=== PATIENT | female | born 1955 | race African-American/Black ===

== ENCOUNTER 2017-03-28 21:08 | Inpatient (IN) ==
[~2017-03-28 21:08] MED LIST: hydrALAZINE 20 MG/1 ML VIAL IV STA
[2017-03-28 22:52] LABS: Alanine Aminotransferase 17 U/L (13-56); Albumin 2.6 G/DL (3.4-5.0); Alkaline Phosphatase 79 U/L (45-117); Aspartate Amino Transferase 20 U/L (0-37); Bilirubin,Total < 0.39 MG/DL (0.2-1.0); Calcium 8.6 MG/DL (8.5-10.1); Total Protein 6.2 G/DL (6.4-8.3)
[2017-03-28 22:53] LABS: Blood Urea Nitrogen 24 MG/DL (7-18); Glucose 386 MG/DL (74-106); Osmolality,Calculated 292.8 MOS/KG (273-304); Potassium 4.3 MMOL/L (3.5-5.1); Sodium 137 MMOL/L (136-145)
[2017-03-28] MEDS ORDERED: hydrALAZINE 20 MG/1 ML VIAL ONE (23:05)
[2017-03-28] MEDS ORDERED: hydrALAZINE 20 MG/1 ML VIAL IV STA (23:05)
[2017-03-28 23:32] LABS: Basophils # 0.1 10*3/uL (0.0-0.2); Basophils % 0.4 % (0.0-0.8); Eosinophils # 0.1 10*3/uL (0.0-0.87); Eosinophils % 0.5 % (0.00-10.9); Hematocrit 33.6 VOL% (35.7-47.0); Hemoglobin 11.1 GM/DL (12.0-16.0); Immature Granulocytes % 0.7 %; Lymphocytes # 3.3 10*3/uL (1.4-4.0); Lymphocytes % 22.1 % (21.3-54.2); Mean Corpuscular Hemoglobin 27 PG (27-34); Mean Corpuscular Volume 82.8 FL (87-102); Monocytes % 6.8 % (1.7-12.7); Neutrophils # 10.4 10*3/uL (1.4-7.4); Neutrophils % 69.5 % (38.7-73.9); Platelet Count 333 T/CUMM (130-400); Red Blood Count 4.06 MC/CUMM (3.8-5.5); Red Cell Distribution Width 15.1 % (9.3-17.3)
[2017-03-28] MEDS ORDERED: INSULIN NPH 100 UNIT/ML SUBCUT STA (23:41)
[2017-03-29] MEDS ORDERED: INSULIN REGULAR 100 UNIT/ML IV STA (00:20)
[2017-03-29] MEDS ORDERED: INSULIN REGULAR 100 UNIT/ML ONE (00:24)
[2017-03-29 01:33] LABS: PT Patient Result 10.8 SECS
[2017-03-29] MEDS ORDERED: DEXTROSE 50% 25 GM/50 ML VIAL IV PRN (02:32)
[2017-03-29] MEDS ORDERED: ONDANSETRON 4 MG/2 ML VIAL IV PRN (02:32)
[2017-03-29] MEDS ORDERED: GLUCAGON 1 MG VIAL IM PRN (02:32)
[2017-03-29] MEDS ORDERED: MORPHINE 2 MG/1 ML SYRINGE IV PRN ×3 (02:32→09:10)
[2017-03-29] MEDS ORDERED: NICOTINE 21 MG/24 HR PATCH TRANSDERM PRN (02:32)
[2017-03-29] MEDS ORDERED: SODIUM CHLORIDE 0.9% 1,000 ML IV SCH (02:32)
[2017-03-29] MEDS: INSULIN LISPRO 100 UNIT/ML SUBCUT SCH ×3 (06:24→18:48)
[2017-03-29] MEDS ORDERED: CLINDAMYCIN INJ 900 MG in PREMIX 1 EACH IV ONE (06:25)
[2017-03-29] MEDS ORDERED: PANTOPRAZOLE 40 MG TABLET PO ONE (07:05)
[2017-03-29] MEDS ORDERED: PHENYLEPHRINE 1 MG/10 ML SYRINGE IV ONE (07:45)
[2017-03-29] MEDS ORDERED: LIDOCAINE 1% 5 ML VIAL ONE (07:45)
[2017-03-29] MEDS ORDERED: PROPOFOL 500 MG/50 ML BOTTLE IV ONE ×2 (07:45→09:33)
[2017-03-29] MEDS ORDERED: BACITRACIN OINT 0.9 GM PACK TOP ONE (08:48)
[2017-03-29] MEDS ORDERED: diphenhydrAMINE CAP 25 MG CAPSULE PO PRN (09:10)
[2017-03-29] MEDS ORDERED: MAGNESIUM HYDROXIDE SUSP 30 ML UDCUP PO PRN (09:10)
[2017-03-29] MEDS ORDERED: MIDAZOLAM 2 MG/2 ML VIAL ONE (09:32)
[2017-03-29 09:38] LABS: Apearance,Urine Slightly Hazy (Clear); Bacteria,Urine Few /HPF (Few); Bilirubin,Urine Negative (Negative); Blood, Urine Moderate mg/dL (Negative); Glucose,Urine (UA) 50 mg/dL (Negative); Ketones,Urine Negative (Negative); Mucus,Urine Occasional /LPF (Occasional); Nitrite,Urine Negative (Negative); Protein,Urine >=500 MG/DL; Squamous Epithelial Cell,Urine Occasional /HPF (0-10); Urine Color Yellow (Yellow); Urine Specific Gravity 1.011 (1.001-1.035); Urine Urobilinogen < 2.0 EU/DL (0.2-1.0); WBC,Urine 5 /HPF (0-6)
[2017-03-29] MEDS: KETOROLAC 30 MG/1 ML VIAL IV SCH ×3 (11:15→21:20)
[2017-03-29] MEDS: PANTOPRAZOLE 40 MG VIAL IV SCH (11:23)
[2017-03-29 12:52] LABS: PT Patient Result 10.9 SECS; Partial Thromboplastin Time 28.6 SECS (0-40)
[2017-03-29] MEDS: CLINDAMYCIN INJ 900 MG in PREMIX 1 EACH IV SCH ×2 (15:22→21:21)
[2017-03-29] MEDS: LACTATED RINGERS 1,000 ML IV SCH (15:30)
[2017-03-29] MEDS: DOCUSATE SODIUM 100 MG CAPSULE PO SCH (21:21)
[2017-03-30] MEDS: INSULIN LISPRO 100 UNIT/ML SUBCUT SCH ×4 (00:45→18:25)
[2017-03-30] MEDS: KETOROLAC 30 MG/1 ML VIAL IV SCH (03:04)
[2017-03-30] MEDS: FONDAPARINUX 2.5 MG/0.5 ML SYRINGE SUBCUT SCH (03:04)
[2017-03-30] MEDS: LACTATED RINGERS 1,000 ML IV SCH ×2 (03:04→09:04)
[2017-03-30 05:15] LABS: Basophils # 0.1 10*3/uL (0.0-0.2); Basophils % 0.5 % (0.0-0.8); Eosinophils # 0.2 10*3/uL (0.0-0.87); Eosinophils % 2.3 % (0.00-10.9); Hemoglobin 9.9 GM/DL (12.0-16.0); Immature Granulocytes % 0.5 %; Immature Granulocytes Absolute 0.05 #; Lymphocytes # 2.2 10*3/uL (1.4-4.0); Mean Corpuscular Hemoglobin 27 PG (27-34); Mean Corpuscular Volume 83.1 FL (87-102); Mean Platelet Volume 11.8 FL (9.6-12.0); Monocytes # 0.8 10*3/uL (0.11-0.8); Monocytes % 7.9 % (1.7-12.7); Neutrophils # 7.2 10*3/uL (1.4-7.4); Neutrophils % 67.8 % (38.7-73.9); Platelet Count 285 T/CUMM (130-400); Red Blood Count 3.61 MC/CUMM (3.8-5.5); Red Cell Distribution Width 15.1 % (9.3-17.3); White Blood Count 10.6 T/CUMM (4-12)
[2017-03-30 05:48] LABS: Calcium 8.5 MG/DL (8.5-10.1); Magnesium 1.6 MG/DL (1.8-2.4); Potassium 4.1 MMOL/L (3.5-5.1)
[2017-03-30] MEDS: DOCUSATE SODIUM 100 MG CAPSULE PO SCH ×2 (08:56→21:07)
[2017-03-30] MEDS: PANTOPRAZOLE 40 MG VIAL IV SCH (08:57)
[2017-03-30] MEDS: GABAPENTIN 600 MG TABLET PO SCH ×2 (13:46→21:07)
[2017-03-30] MEDS: amLODIPine 10 MG TABLET PO SCH (13:46)
[2017-03-30] MEDS: POTASSIUM CHLORIDE 10 MEQ TABLET PO SCH (18:24)
[2017-03-31] MEDS: INSULIN LISPRO 100 UNIT/ML SUBCUT SCH ×4 (00:57→18:21)
[2017-03-31] MEDS: FONDAPARINUX 2.5 MG/0.5 ML SYRINGE SUBCUT SCH (03:04)
[2017-03-31 05:15] LABS: Basophils # 0.1 10*3/uL (0.0-0.2); Basophils % 0.5 % (0.0-0.8); Eosinophils # 0.3 10*3/uL (0.0-0.87); Eosinophils % 2.8 % (0.00-10.9); Hematocrit 30.8 VOL% (35.7-47.0); Hemoglobin 9.9 GM/DL (12.0-16.0); Immature Granulocytes % 0.8 %; Immature Granulocytes Absolute 0.09 #; Lymphocytes # 3.1 10*3/uL (1.4-4.0); Lymphocytes % 25.7 % (21.3-54.2); Mean Corpuscular HGB Conc 32.1 GM/DL (32-36); Mean Corpuscular Hemoglobin 27 PG (27-34); Mean Corpuscular Volume 83.7 FL (87-102); Mean Platelet Volume 11.6 FL (9.6-12.0); Monocytes # 1.2 10*3/uL (0.11-0.8); Monocytes % 10.3 % (1.7-12.7); Neutrophils # 7.1 10*3/uL (1.4-7.4); Neutrophils % 59.9 % (38.7-73.9); Platelet Count 315 T/CUMM (130-400); Red Blood Count 3.68 MC/CUMM (3.8-5.5); Red Cell Distribution Width 15.2 % (9.3-17.3); White Blood Count 11.9 T/CUMM (4-12)
[2017-03-31 05:42] LABS: Calcium 8.5 MG/DL (8.5-10.1); Magnesium 1.8 MG/DL (1.8-2.4); Potassium 4.2 MMOL/L (3.5-5.1)
[2017-03-31] MEDS: POTASSIUM CHLORIDE 10 MEQ TABLET PO SCH ×2 (08:29→17:57)
[2017-03-31] MEDS: DOCUSATE SODIUM 100 MG CAPSULE PO SCH ×2 (09:55→20:48)
[2017-03-31] MEDS: GABAPENTIN 600 MG TABLET PO SCH ×2 (09:55→20:48)
[2017-03-31] MEDS: amLODIPine 10 MG TABLET PO SCH (09:55)
[2017-03-31] MEDS: FUROSEMIDE 20 MG TABLET PO SCH (09:55)
[2017-03-31] MEDS: INSULIN ASPART PROTAMINE/ASPART 70/30 100 UNIT/ML SUBCUT SCH (10:04)
[2017-03-31] MEDS: DULoxetine 30 MG CAPSULE PO SCH (13:40)
[2017-03-31] MEDS: METOPROLOL SUCCINATE XL 50 MG TABLET PO SCH (13:42)
[2017-03-31] MEDS: PANTOPRAZOLE 40 MG VIAL IV SCH (18:18)
[2017-04-01] MEDS: INSULIN LISPRO 100 UNIT/ML SUBCUT SCH ×4 (00:06→18:46)
[2017-04-01] MEDS: FONDAPARINUX 2.5 MG/0.5 ML SYRINGE SUBCUT SCH (01:27)
[2017-04-01 10:00] LABS: Basophils # 0.1 10*3/uL (0.0-0.2); Basophils % 0.6 % (0.0-0.8); Eosinophils # 0.4 10*3/uL (0.0-0.87); Eosinophils % 3.6 % (0.00-10.9); Hematocrit 31.9 VOL% (35.7-47.0); Hemoglobin 10.3 GM/DL (12.0-16.0); Immature Granulocytes % 0.7 %; Immature Granulocytes Absolute 0.09 #; Lymphocytes # 3.2 10*3/uL (1.4-4.0); Lymphocytes % 25.5 % (21.3-54.2); Mean Corpuscular HGB Conc 32.3 GM/DL (32-36); Mean Corpuscular Hemoglobin 28 PG (27-34); Mean Corpuscular Volume 85.1 FL (87-102); Monocytes # 1.3 10*3/uL (0.11-0.8); Monocytes % 10.7 % (1.7-12.7); Neutrophils # 7.3 10*3/uL (1.4-7.4); Neutrophils % 58.9 % (38.7-73.9); Platelet Count 328 T/CUMM (130-400); Red Blood Count 3.75 MC/CUMM (3.8-5.5); Red Cell Distribution Width 15.2 % (9.3-17.3); White Blood Count 12.4 T/CUMM (4-12)
[2017-04-01] MEDS: FUROSEMIDE 20 MG TABLET PO SCH (10:41)
[2017-04-01] MEDS: DULoxetine 30 MG CAPSULE PO SCH (10:42)
[2017-04-01] MEDS: amLODIPine 10 MG TABLET PO SCH (10:42)
[2017-04-01] MEDS: DOCUSATE SODIUM 100 MG CAPSULE PO SCH ×2 (10:42→20:54)
[2017-04-01] MEDS: INSULIN ASPART PROTAMINE/ASPART 70/30 100 UNIT/ML SUBCUT SCH (10:43)
[2017-04-01] MEDS: METOPROLOL SUCCINATE XL 50 MG TABLET PO SCH (10:43)
[2017-04-01] MEDS: POTASSIUM CHLORIDE 10 MEQ TABLET PO SCH ×2 (10:43→17:13)
[2017-04-01] MEDS: GABAPENTIN 600 MG TABLET PO SCH ×2 (10:43→20:54)
[2017-04-01 11:11] LABS: Hypochromasia 2+; Microcytosis 2+
[2017-04-01] MEDS: PANTOPRAZOLE 40 MG TABLET PO SCH (12:32)
[2017-04-01] MEDS: sitaGLIPtin 25 MG TABLET PO SCH ×2 (17:12→20:54)
[2017-04-01] MEDS: metFORMIN 500 MG TABLET PO SCH ×2 (17:13→20:54)
[2017-04-01] MEDS: PANTOPRAZOLE 40 MG VIAL IV SCH (17:44)
[2017-04-02] MEDS: INSULIN LISPRO 100 UNIT/ML SUBCUT SCH ×3 (00:40→11:33)
[2017-04-02] MEDS: FONDAPARINUX 2.5 MG/0.5 ML SYRINGE SUBCUT SCH (03:05)
[2017-04-02 05:02] LABS: Basophils # 0.1 10*3/uL (0.0-0.2); Basophils % 0.7 % (0.0-0.8); Eosinophils # 0.3 10*3/uL (0.0-0.87); Eosinophils % 2.8 % (0.00-10.9); Immature Granulocytes % 0.5 %; Immature Granulocytes Absolute 0.05 #; Lymphocytes # 3.2 10*3/uL (1.4-4.0); Lymphocytes % 30.7 % (21.3-54.2); Mean Corpuscular HGB Conc 32.1 GM/DL (32-36); Mean Corpuscular Hemoglobin 27 PG (27-34); Mean Corpuscular Volume 84.3 FL (87-102); Mean Platelet Volume 11.2 FL (9.6-12.0); Monocytes # 1.1 10*3/uL (0.11-0.8); Monocytes % 10.9 % (1.7-12.7); Neutrophils # 5.7 10*3/uL (1.4-7.4); Neutrophils % 54.4 % (38.7-73.9); Platelet Count 337 T/CUMM (130-400); Red Blood Count 3.32 MC/CUMM (3.8-5.5); White Blood Count 10.4 T/CUMM (4-12)
[2017-04-02 05:28] LABS: Calcium 8.3 MG/DL (8.5-10.1); Magnesium 1.7 MG/DL (1.8-2.4); Osmolality,Calculated 286.1 MOS/KG (273-304); Potassium 4.2 MMOL/L (3.5-5.1)
[2017-04-02] MEDS: DULoxetine 30 MG CAPSULE PO SCH (09:04)
[2017-04-02] MEDS: INSULIN ASPART PROTAMINE/ASPART 70/30 100 UNIT/ML SUBCUT SCH (09:04)
[2017-04-02] MEDS: FUROSEMIDE 20 MG TABLET PO SCH (09:05)
[2017-04-02] MEDS: DOCUSATE SODIUM 100 MG CAPSULE PO SCH (09:05)
[2017-04-02] MEDS: PANTOPRAZOLE 40 MG TABLET PO SCH (09:05)
[2017-04-02] MEDS: METOPROLOL SUCCINATE XL 50 MG TABLET PO SCH (09:05)
[2017-04-02] MEDS: POTASSIUM CHLORIDE 10 MEQ TABLET PO SCH (09:05)
[2017-04-02] MEDS: metFORMIN 500 MG TABLET PO SCH (09:05)
[2017-04-02] MEDS: sitaGLIPtin 25 MG TABLET PO SCH (09:05)
[2017-04-02] MEDS: GABAPENTIN 600 MG TABLET PO SCH (09:05)
[2017-04-02] MEDS: amLODIPine 10 MG TABLET PO SCH (09:05)
[2017-04-02] MEDS ORDERED: BISACODYL 10 MG SUPP RECTAL PRN (13:03)
[2017-04-02 15:15] VITALS: BP 162/91
== END 2017-04-02 15:25 | disposition swing bed (61) | DRG 481 ==
LOC: EDBD → EDUNIT# → N.ED 21:08 → SUATTDRO 03-29 01:53 → N.EDINP 03-29 01:53 → N.3E 03-29 02:05
PROVIDERS: ADMIT Internal Medicine; ATTEND Internal Medicine

== ENCOUNTER 2017-04-12 21:02 | Inpatient (IN) ==
[2017-04-12 22:47] LABS: Basophils # 0.1 10*3/uL (0.0-0.2); Basophils % 0.4 % (0.0-0.8); Eosinophils # 0.2 10*3/uL (0.0-0.87); Hematocrit 27.6 VOL% (35.7-47.0); Hemoglobin 8.8 GM/DL (12.0-16.0); Immature Granulocytes % 0.4 %; Immature Granulocytes Absolute 0.07 #; Lymphocytes # 2.2 10*3/uL (1.4-4.0); Mean Corpuscular HGB Conc 31.9 GM/DL (32-36); Mean Corpuscular Hemoglobin 27 PG (27-34); Mean Corpuscular Volume 84.9 FL (87-102); Mean Platelet Volume 10.5 FL (9.6-12.0); Monocytes % 6.3 % (1.7-12.7); Neutrophils # 12.3 10*3/uL (1.4-7.4); Neutrophils % 77.9 % (38.7-73.9); Platelet Count 401 T/CUMM (130-400); Red Blood Count 3.25 MC/CUMM (3.8-5.5); Red Cell Distribution Width 14.6 % (9.3-17.3); White Blood Count 15.8 T/CUMM (4-12)
[2017-04-12 23:03] LABS: Calcium 8.8 MG/DL (8.5-10.1); Potassium 4.7 MMOL/L (3.5-5.1)
[2017-04-13] MEDS ORDERED: ONDANSETRON 4 MG/2 ML VIAL IV PRN (03:15)
[2017-04-13] MEDS ORDERED: DEXTROSE 50% 25 GM/50 ML VIAL IV PRN (03:15)
[2017-04-13] MEDS ORDERED: ACETAMINOPHEN 650 MG SUPP RECTAL PRN (03:15)
[2017-04-13] MEDS ORDERED: GLUCAGON 1 MG VIAL IM PRN (03:15)
[2017-04-13] MEDS: SODIUM CHLORIDE 0.9% 1,000 ML IV SCH ×2 (03:37→18:57)
[2017-04-13] MEDS: VANCOMYCIN INJ 1,000 MG in SODIUM CHLORIDE 0.9% 250 ML IV SCH (04:10)
[2017-04-13 06:03] LABS: Basophils # 0.1 10*3/uL (0.0-0.2); Basophils % 0.5 % (0.0-0.8); Eosinophils # 0.2 10*3/uL (0.0-0.87); Eosinophils % 1.5 % (0.00-10.9); Hematocrit 26.3 VOL% (35.7-47.0); Hemoglobin 8.4 GM/DL (12.0-16.0); Immature Granulocytes % 0.4 %; Immature Granulocytes Absolute 0.05 #; Lymphocytes # 3.3 10*3/uL (1.4-4.0); Lymphocytes % 23.9 % (21.3-54.2); Mean Corpuscular HGB Conc 31.9 GM/DL (32-36); Mean Corpuscular Hemoglobin 27 PG (27-34); Mean Corpuscular Volume 84.6 FL (87-102); Mean Platelet Volume 10.4 FL (9.6-12.0); Monocytes # 1.3 10*3/uL (0.11-0.8); Monocytes % 9.2 % (1.7-12.7); Neutrophils # 8.9 10*3/uL (1.4-7.4); Neutrophils % 64.5 % (38.7-73.9); Platelet Count 395 T/CUMM (130-400); Red Blood Count 3.11 MC/CUMM (3.8-5.5); Red Cell Distribution Width 14.6 % (9.3-17.3); White Blood Count 13.8 T/CUMM (4-12)
[2017-04-13] MEDS: INSULIN REGULAR 100 UNIT/ML SUBCUT SCH ×3 (06:15→18:14)
[2017-04-13 06:18] LABS: PT Patient Result 10.7 SECS; Partial Thromboplastin Time 32.1 SECS (0-40)
[2017-04-13 06:45] LABS: Calcium 9.1 MG/DL (8.5-10.1)
[2017-04-13 06:46] LABS: Albumin 2.5 G/DL (3.4-5.0); Bilirubin,Total 0.7 MG/DL (0.2-1.0); Magnesium 2.5 MG/DL (1.8-2.4); Osmolality,Calculated 286.7 MOS/KG (273-304); Potassium 4.4 MMOL/L (3.5-5.1); Total Protein 6.1 G/DL (6.4-8.3)
[2017-04-13] MEDS: MORPHINE 2 MG/1 ML SYRINGE IV PRN (08:30)
[2017-04-13] MEDS ORDERED: PROPOFOL 200 MG/20 ML VIAL IV ONE (21:15)
[2017-04-13] MEDS ORDERED: ONDANSETRON 4 MG/2 ML VIAL ONE (21:16)
[2017-04-13] MEDS ORDERED: MIDAZOLAM 2 MG/2 ML VIAL ONE (21:16)
[2017-04-13] MEDS ORDERED: fentaNYL 100 MCG/2 ML VIAL ONE (21:16)
[2017-04-14] MEDS: INSULIN REGULAR 100 UNIT/ML SUBCUT SCH ×3 (01:00→12:36)
[2017-04-14] MEDS: SODIUM CHLORIDE 0.9% 1,000 ML IV SCH ×3 (01:03→12:36)
[2017-04-14] MEDS: VANCOMYCIN INJ 1,000 MG in SODIUM CHLORIDE 0.9% 250 ML IV SCH (03:54)
[2017-04-14 05:24] LABS: Basophils # 0.1 10*3/uL (0.0-0.2); Basophils % 0.5 % (0.0-0.8); Eosinophils # 0.3 10*3/uL (0.0-0.87); Eosinophils % 2.2 % (0.00-10.9); Hematocrit 25.8 VOL% (35.7-47.0); Hemoglobin 8.2 GM/DL (12.0-16.0); Immature Granulocytes % 0.4 %; Immature Granulocytes Absolute 0.05 #; Lymphocytes # 3.1 10*3/uL (1.4-4.0); Lymphocytes % 27.1 % (21.3-54.2); Mean Corpuscular HGB Conc 31.8 GM/DL (32-36); Mean Corpuscular Hemoglobin 27 PG (27-34); Mean Corpuscular Volume 85.4 FL (87-102); Mean Platelet Volume 10.5 FL (9.6-12.0); Monocytes % 9.1 % (1.7-12.7); Neutrophils # 6.8 10*3/uL (1.4-7.4); Neutrophils % 60.7 % (38.7-73.9); Platelet Count 363 T/CUMM (130-400); Red Blood Count 3.02 MC/CUMM (3.8-5.5); Red Cell Distribution Width 14.6 % (9.3-17.3); White Blood Count 11.3 T/CUMM (4-12)
[2017-04-14] MEDS ORDERED: MAGNESIUM HYDROXIDE SUSP 30 ML UDCUP PO PRN (14:20)
[2017-04-14] MEDS ORDERED: NICOTINE 21 MG/24 HR PATCH TRANSDERM PRN (14:20)
[2017-04-14] MEDS: BISACODYL 5 MG TABLET PO PRN (16:05)
[2017-04-14] MEDS: POTASSIUM CHLORIDE 10 MEQ TABLET PO SCH (18:29)
[2017-04-14] MEDS: INSULIN LISPRO 100 UNIT/ML SUBCUT SCH (18:47)
[2017-04-14] MEDS: sitaGLIPtin 25 MG TABLET PO SCH (20:38)
[2017-04-14] MEDS: metFORMIN 500 MG TABLET PO SCH (20:38)
[2017-04-14] MEDS: FUROSEMIDE 20 MG TABLET PO SCH (20:39)
[2017-04-14] MEDS: QUEtiapine 100 MG TABLET PO SCH (20:39)
[2017-04-14] MEDS: MORPHINE 2 MG/1 ML SYRINGE IV PRN (20:39)
[2017-04-15] MEDS: INSULIN LISPRO 100 UNIT/ML SUBCUT SCH ×5 (00:06→23:30)
[2017-04-15] MEDS: SODIUM CHLORIDE 0.9% 1,000 ML IV SCH ×4 (03:00→19:49)
[2017-04-15] MEDS: VANCOMYCIN INJ 1,000 MG in SODIUM CHLORIDE 0.9% 250 ML IV SCH (03:00)
[2017-04-15] MEDS: FUROSEMIDE 20 MG TABLET PO SCH ×2 (08:18→20:54)
[2017-04-15] MEDS: amLODIPine 10 MG TABLET PO SCH (08:18)
[2017-04-15] MEDS: metFORMIN 500 MG TABLET PO SCH ×2 (08:18→20:54)
[2017-04-15] MEDS: POTASSIUM CHLORIDE 10 MEQ TABLET PO SCH ×2 (08:18→17:59)
[2017-04-15] MEDS: sitaGLIPtin 25 MG TABLET PO SCH ×2 (08:18→20:54)
[2017-04-15] MEDS: DULoxetine 30 MG CAPSULE PO SCH (08:18)
[2017-04-15] MEDS: METOPROLOL SUCCINATE XL 50 MG TABLET PO SCH (08:19)
[2017-04-15] MEDS: PANTOPRAZOLE 40 MG TABLET PO SCH (08:19)
[2017-04-15] MEDS: INSULIN ASPART PROTAMINE/ASPART 70/30 100 UNIT/ML SUBCUT SCH (08:19)
[2017-04-15] MEDS ORDERED: LEVOFLOXACIN INJ 750 MG in PREMIX 1 EACH IV SCH (15:30)
[2017-04-15] MEDS ORDERED: cefTRIAXone 1,000 MG in SYRINGE 1 EACH IV SCH (16:30)
[2017-04-15] MEDS: QUEtiapine 100 MG TABLET PO SCH (20:54)
[2017-04-16] MEDS ORDERED: VANCOMYCIN INJ 1,000 MG in SODIUM CHLORIDE 0.9% 250 ML IV SCH (04:00)
[2017-04-16] MEDS: INSULIN LISPRO 100 UNIT/ML SUBCUT SCH ×3 (06:58→17:52)
[2017-04-16] MEDS: DULoxetine 30 MG CAPSULE PO SCH (09:20)
[2017-04-16] MEDS: POTASSIUM CHLORIDE 10 MEQ TABLET PO SCH ×2 (09:20→17:04)
[2017-04-16] MEDS: amLODIPine 10 MG TABLET PO SCH (09:21)
[2017-04-16] MEDS: FUROSEMIDE 20 MG TABLET PO SCH ×2 (09:21→22:21)
[2017-04-16] MEDS: PANTOPRAZOLE 40 MG TABLET PO SCH (09:21)
[2017-04-16] MEDS: METOPROLOL SUCCINATE XL 50 MG TABLET PO SCH (09:22)
[2017-04-16] MEDS: metFORMIN 500 MG TABLET PO SCH ×2 (09:34→22:18)
[2017-04-16] MEDS: sitaGLIPtin 25 MG TABLET PO SCH ×2 (09:38→22:18)
[2017-04-16] MEDS: INSULIN ASPART PROTAMINE/ASPART 70/30 100 UNIT/ML SUBCUT SCH (09:39)
[2017-04-16] MEDS: SODIUM CHLORIDE 0.9% 1,000 ML IV SCH ×3 (10:44→22:23)
[2017-04-16 12:17] LABS: Calcium 8.6 MG/DL (8.5-10.1); Osmolality,Calculated 287.8 MOS/KG (273-304); Potassium 4.4 MMOL/L (3.5-5.1)
[2017-04-16] MEDS: KETOCONAZOLE 2% CREAM 30 GM TUBE TOP SCH ×2 (13:16→22:28)
[2017-04-16] MEDS: SULFAMETHOX/TRIMETHOPRIM 800-160 MG TABLET PO SCH ×2 (13:16→22:21)
[2017-04-16] MEDS: QUEtiapine 100 MG TABLET PO SCH (22:22)
[2017-04-17] MEDS: INSULIN LISPRO 100 UNIT/ML SUBCUT SCH ×4 (00:38→18:19)
[2017-04-17 04:39] LABS: Basophils # 0.1 10*3/uL (0.0-0.2); Basophils % 0.5 % (0.0-0.8); Eosinophils # 0.2 10*3/uL (0.0-0.87); Eosinophils % 2.6 % (0.00-10.9); Hematocrit 23.6 VOL% (35.7-47.0); Hemoglobin 7.6 GM/DL (12.0-16.0); Immature Granulocytes % 0.4 %; Immature Granulocytes Absolute 0.04 #; Lymphocytes # 2.9 10*3/uL (1.4-4.0); Lymphocytes % 30.6 % (21.3-54.2); Mean Corpuscular HGB Conc 32.2 GM/DL (32-36); Mean Corpuscular Hemoglobin 27 PG (27-34); Mean Corpuscular Volume 85.2 FL (87-102); Mean Platelet Volume 10.4 FL (9.6-12.0); Monocytes # 0.9 10*3/uL (0.11-0.8); Neutrophils # 5.2 10*3/uL (1.4-7.4); Neutrophils % 55.9 % (38.7-73.9); Platelet Count 380 T/CUMM (130-400); Red Blood Count 2.77 MC/CUMM (3.8-5.5); Red Cell Distribution Width 14.6 % (9.3-17.3); White Blood Count 9.3 T/CUMM (4-12)
[2017-04-17 05:04] LABS: Osmolality,Calculated 286.7 MOS/KG (273-304); Potassium 3.9 MMOL/L (3.5-5.1)
[2017-04-17] MEDS: DULoxetine 30 MG CAPSULE PO SCH (09:28)
[2017-04-17] MEDS: sitaGLIPtin 25 MG TABLET PO SCH ×2 (09:28→21:51)
[2017-04-17] MEDS: metFORMIN 500 MG TABLET PO SCH ×2 (09:28→21:52)
[2017-04-17] MEDS: POTASSIUM CHLORIDE 10 MEQ TABLET PO SCH ×2 (09:28→18:17)
[2017-04-17] MEDS: SULFAMETHOX/TRIMETHOPRIM 800-160 MG TABLET PO SCH ×2 (09:28→21:51)
[2017-04-17] MEDS: FUROSEMIDE 20 MG TABLET PO SCH ×2 (09:30→21:51)
[2017-04-17] MEDS: amLODIPine 10 MG TABLET PO SCH (09:31)
[2017-04-17] MEDS: METOPROLOL SUCCINATE XL 50 MG TABLET PO SCH (09:31)
[2017-04-17] MEDS: PANTOPRAZOLE 40 MG TABLET PO SCH (09:37)
[2017-04-17] MEDS: KETOCONAZOLE 2% CREAM 30 GM TUBE TOP SCH ×2 (09:38→21:56)
[2017-04-17] MEDS: INSULIN ASPART PROTAMINE/ASPART 70/30 100 UNIT/ML SUBCUT SCH (09:40)
[2017-04-17] MEDS: SODIUM CHLORIDE 0.9% 1,000 ML IV SCH ×3 (12:53→21:59)
[2017-04-17] MEDS: QUEtiapine 100 MG TABLET PO SCH (21:52)
[2017-04-18] MEDS: INSULIN LISPRO 100 UNIT/ML SUBCUT SCH ×4 (01:34→18:08)
[2017-04-18 06:31] LABS: Basophils # 0.1 10*3/uL (0.0-0.2); Basophils % 0.5 % (0.0-0.8); Eosinophils # 0.3 10*3/uL (0.0-0.87); Eosinophils % 3.2 % (0.00-10.9); Hemoglobin 8.5 GM/DL (12.0-16.0); Immature Granulocytes % 0.4 %; Immature Granulocytes Absolute 0.04 #; Lymphocytes # 3.2 10*3/uL (1.4-4.0); Lymphocytes % 31.7 % (21.3-54.2); Mean Corpuscular HGB Conc 31.5 GM/DL (32-36); Mean Corpuscular Hemoglobin 27 PG (27-34); Mean Corpuscular Volume 84.4 FL (87-102); Mean Platelet Volume 10.8 FL (9.6-12.0); Monocytes % 9.7 % (1.7-12.7); Neutrophils # 5.6 10*3/uL (1.4-7.4); Neutrophils % 54.5 % (38.7-73.9); Platelet Count 433 T/CUMM (130-400); Red Cell Distribution Width 14.9 % (9.3-17.3); White Blood Count 10.2 T/CUMM (4-12)
[2017-04-18] MEDS: SODIUM CHLORIDE 0.9% 1,000 ML IV SCH ×2 (07:06→13:00)
[2017-04-18 07:35] LABS: Calcium 8.7 MG/DL (8.5-10.1); Osmolality,Calculated 285.1 MOS/KG (273-304); Potassium 3.8 MMOL/L (3.5-5.1)
[2017-04-18] MEDS: metFORMIN 500 MG TABLET PO SCH ×2 (09:20→20:51)
[2017-04-18] MEDS: POTASSIUM CHLORIDE 10 MEQ TABLET PO SCH ×2 (09:21→18:22)
[2017-04-18] MEDS: amLODIPine 10 MG TABLET PO SCH (09:21)
[2017-04-18] MEDS: FUROSEMIDE 20 MG TABLET PO SCH ×2 (09:23→20:51)
[2017-04-18] MEDS: PANTOPRAZOLE 40 MG TABLET PO SCH (09:24)
[2017-04-18] MEDS: sitaGLIPtin 25 MG TABLET PO SCH ×2 (09:24→20:51)
[2017-04-18] MEDS: SULFAMETHOX/TRIMETHOPRIM 800-160 MG TABLET PO SCH ×2 (09:24→20:51)
[2017-04-18] MEDS: METOPROLOL SUCCINATE XL 50 MG TABLET PO SCH (09:24)
[2017-04-18] MEDS: DULoxetine 30 MG CAPSULE PO SCH (09:25)
[2017-04-18] MEDS: KETOCONAZOLE 2% CREAM 30 GM TUBE TOP SCH ×2 (09:27→20:51)
[2017-04-18] MEDS: INSULIN ASPART PROTAMINE/ASPART 70/30 100 UNIT/ML SUBCUT SCH (09:46)
[2017-04-18] MEDS: QUEtiapine 100 MG TABLET PO SCH (20:52)
[2017-04-19] MEDS: INSULIN LISPRO 100 UNIT/ML SUBCUT SCH ×5 (00:08→23:53)
[2017-04-19] MEDS: SODIUM CHLORIDE 0.9% 1,000 ML IV SCH ×3 (04:21→23:54)
[2017-04-19] MEDS: KETOCONAZOLE 2% CREAM 30 GM TUBE TOP SCH ×2 (09:23→20:22)
[2017-04-19] MEDS: amLODIPine 10 MG TABLET PO SCH (09:23)
[2017-04-19] MEDS: METOPROLOL SUCCINATE XL 50 MG TABLET PO SCH (09:24)
[2017-04-19] MEDS: POTASSIUM CHLORIDE 10 MEQ TABLET PO SCH ×2 (09:24→18:52)
[2017-04-19] MEDS: metFORMIN 500 MG TABLET PO SCH ×2 (09:24→20:24)
[2017-04-19] MEDS: sitaGLIPtin 25 MG TABLET PO SCH ×2 (09:25→20:23)
[2017-04-19] MEDS: DULoxetine 30 MG CAPSULE PO SCH (09:25)
[2017-04-19] MEDS: FUROSEMIDE 20 MG TABLET PO SCH ×2 (09:27→20:24)
[2017-04-19] MEDS: PANTOPRAZOLE 40 MG TABLET PO SCH (09:28)
[2017-04-19] MEDS: SULFAMETHOX/TRIMETHOPRIM 800-160 MG TABLET PO SCH ×2 (09:28→20:23)
[2017-04-19] MEDS: INSULIN ASPART PROTAMINE/ASPART 70/30 100 UNIT/ML SUBCUT SCH (09:31)
[2017-04-19] MEDS: QUEtiapine 100 MG TABLET PO SCH (20:22)
[2017-04-20 03:16] LABS: Basophils % 0.4 % (0.0-0.8); Eosinophils # 0.3 10*3/uL (0.0-0.87); Hematocrit 23.2 VOL% (35.7-47.0); Hemoglobin 7.3 GM/DL (12.0-16.0); Immature Granulocytes % 0.4 %; Immature Granulocytes Absolute 0.04 #; Lymphocytes % 27.3 % (21.3-54.2); Mean Corpuscular HGB Conc 31.5 GM/DL (32-36); Mean Corpuscular Hemoglobin 26 PG (27-34); Mean Corpuscular Volume 84.1 FL (87-102); Mean Platelet Volume 9.9 FL (9.6-12.0); Monocytes # 1.1 10*3/uL (0.11-0.8); Neutrophils # 6.4 10*3/uL (1.4-7.4); Neutrophils % 58.9 % (38.7-73.9); Platelet Count 426 T/CUMM (130-400); Red Blood Count 2.76 MC/CUMM (3.8-5.5); White Blood Count 10.9 T/CUMM (4-12)
[2017-04-20 03:45] LABS: Calcium 8.5 MG/DL (8.5-10.1); Osmolality,Calculated 283.3 MOS/KG (273-304); Potassium 4.1 MMOL/L (3.5-5.1)
[2017-04-20] MEDS: INSULIN LISPRO 100 UNIT/ML SUBCUT SCH ×3 (07:50→19:18)
[2017-04-20] MEDS: SODIUM CHLORIDE 0.9% 1,000 ML IV SCH ×3 (10:07→20:43)
[2017-04-20] MEDS: FUROSEMIDE 20 MG TABLET PO SCH ×2 (10:08→20:44)
[2017-04-20] MEDS: metFORMIN 500 MG TABLET PO SCH ×2 (10:09→20:44)
[2017-04-20] MEDS: amLODIPine 10 MG TABLET PO SCH (10:09)
[2017-04-20] MEDS: SULFAMETHOX/TRIMETHOPRIM 800-160 MG TABLET PO SCH ×2 (10:09→20:44)
[2017-04-20] MEDS: POTASSIUM CHLORIDE 10 MEQ TABLET PO SCH ×2 (10:10→18:35)
[2017-04-20] MEDS: DULoxetine 30 MG CAPSULE PO SCH (10:11)
[2017-04-20] MEDS: sitaGLIPtin 25 MG TABLET PO SCH ×2 (10:11→20:44)
[2017-04-20] MEDS: METOPROLOL SUCCINATE XL 50 MG TABLET PO SCH (10:11)
[2017-04-20] MEDS: PANTOPRAZOLE 40 MG TABLET PO SCH (10:11)
[2017-04-20] MEDS: BISACODYL 5 MG TABLET PO PRN (10:12)
[2017-04-20] MEDS: KETOCONAZOLE 2% CREAM 30 GM TUBE TOP SCH ×2 (10:13→22:38)
[2017-04-20] MEDS: INSULIN ASPART PROTAMINE/ASPART 70/30 100 UNIT/ML SUBCUT SCH (10:13)
[2017-04-20] MEDS: QUEtiapine 100 MG TABLET PO SCH (20:44)
[2017-04-21] MEDS: INSULIN LISPRO 100 UNIT/ML SUBCUT SCH ×3 (01:06→11:32)
[2017-04-21] MEDS: SODIUM CHLORIDE 0.9% 1,000 ML IV SCH (05:46)
[2017-04-21] MEDS: INSULIN ASPART PROTAMINE/ASPART 70/30 100 UNIT/ML SUBCUT SCH (09:06)
[2017-04-21] MEDS: POTASSIUM CHLORIDE 10 MEQ TABLET PO SCH (09:07)
[2017-04-21] MEDS: SULFAMETHOX/TRIMETHOPRIM 800-160 MG TABLET PO SCH (09:07)
[2017-04-21] MEDS: amLODIPine 10 MG TABLET PO SCH (09:08)
[2017-04-21] MEDS: sitaGLIPtin 25 MG TABLET PO SCH (09:08)
[2017-04-21] MEDS: metFORMIN 500 MG TABLET PO SCH (09:08)
[2017-04-21] MEDS: PANTOPRAZOLE 40 MG TABLET PO SCH (09:08)
[2017-04-21] MEDS: METOPROLOL SUCCINATE XL 50 MG TABLET PO SCH (09:08)
[2017-04-21] MEDS: KETOCONAZOLE 2% CREAM 30 GM TUBE TOP SCH (09:08)
[2017-04-21] MEDS: DULoxetine 30 MG CAPSULE PO SCH (09:08)
[2017-04-21] MEDS: FUROSEMIDE 20 MG TABLET PO SCH (09:08)
[2017-04-21] MEDS ORDERED: LISINOPRIL 10 MG TABLET PO SCH (10:30)
[2017-04-21 11:54] VITALS: BP 152/81
== END 2017-04-21 14:15 | disposition swing bed (61) | DRG 863 ==
LOC: N.ED 21:02 → N.EDINP 04-13 02:01 → SUATTDRO 04-13 02:01 → N.3E 04-13 02:36
PROVIDERS: ADMIT Internal Medicine Cardiovascular Disease

== ENCOUNTER 2018-02-12 14:52 | Inpatient (IN) ==
[2018-02-12 15:37] LABS: Basophils # 0.1 10*3/uL (0.0-0.2); Basophils % 0.7 % (0.0-0.8); Eosinophils # 0.2 10*3/uL (0.0-0.87); Eosinophils % 1.6 % (0.00-10.9); Hematocrit 29.5 VOL% (35.7-47.0); Hemoglobin 9.3 GM/DL (12.0-16.0); Immature Granulocytes % 0.5 %; Immature Granulocytes Absolute 0.06 #; Lymphocytes % 24.6 % (21.3-54.2); Mean Corpuscular HGB Conc 31.5 GM/DL (32-36); Mean Corpuscular Hemoglobin 27 PG (27-34); Mean Platelet Volume 11.6 FL (9.6-12.0); Monocytes # 0.9 10*3/uL (0.11-0.8); Monocytes % 7.2 % (1.7-12.7); Neutrophils % 65.4 % (38.7-73.9); Platelet Count 349 T/CUMM (130-400); Red Blood Count 3.51 MC/CUMM (3.8-5.5); Red Cell Distribution Width 16.1 % (9.3-17.3); White Blood Count 12.2 T/CUMM (4-12)
[2018-02-12 15:43] LABS: PT Patient Result 10.8 SECS; Partial Thromboplastin Time 27.5 SECS (0-40)
[2018-02-12 15:50] LABS: Alanine Aminotransferase 18 U/L (13-56); Alkaline Phosphatase 101 U/L (45-117); Aspartate Amino Transferase 14 U/L (0-37); Bilirubin,Total < 0.39 MG/DL (0.2-1.0); Blood Urea Nitrogen 53 MG/DL (7-18); Calcium 9.8 MG/DL (8.5-10.1); Glucose 272 MG/DL (74-106); Osmolality,Calculated 296.8 MOS/KG (273-304); Potassium 4.5 MMOL/L (3.5-5.1); Sodium 137 MMOL/L (136-145); Total Protein 7.8 G/DL (6.4-8.3)
[2018-02-12] MEDS ORDERED: GLUCAGON 1 MG VIAL IM PRN (17:39)
[2018-02-12] MEDS ORDERED: DEXTROSE 50% 25 GM/50 ML VIAL IV PRN (17:39)
[2018-02-12] MEDS ORDERED: ONDANSETRON 4 MG/2 ML VIAL IV PRN (17:39)
[2018-02-12] MEDS ORDERED: LEVOFLOXACIN INJ 500 MG in PREMIX 1 EACH IV ONE (19:30)
[2018-02-12] MEDS: SODIUM CHLORIDE 0.9% 1,000 ML IV SCH (19:44)
[2018-02-12 19:47] LABS: Troponin I < 0.015 NG/ML (0.00-0.045)
[2018-02-12] MEDS: FUROSEMIDE 40 MG/4 ML VIAL IV SCH (19:47)
[2018-02-12] MEDS: ALBUTEROL/IPRATROPIUM 3 ML NEB RESP TX SCH (19:52)
[2018-02-12] MEDS: INSULIN REGULAR 100 UNIT/ML SUBCUT SCH (22:22)
[2018-02-12] MEDS: ENOXAPARIN 30 MG/0.3 ML SYRINGE SUBCUT SCH (22:23)
[2018-02-13] MEDS: ALBUTEROL/IPRATROPIUM 3 ML NEB RESP TX SCH ×4 (00:06→19:25)
[2018-02-13 06:11] LABS: Basophils # 0.1 10*3/uL (0.0-0.2); Basophils % 0.7 % (0.0-0.8); Eosinophils # 0.2 10*3/uL (0.0-0.87); Eosinophils % 2.3 % (0.00-10.9); Hematocrit 24.6 VOL% (35.7-47.0); Immature Granulocytes % 0.7 %; Immature Granulocytes Absolute 0.07 #; Lymphocytes # 3.1 10*3/uL (1.4-4.0); Lymphocytes % 29.9 % (21.3-54.2); Mean Corpuscular HGB Conc 32.5 GM/DL (32-36); Mean Corpuscular Hemoglobin 27 PG (27-34); Mean Corpuscular Volume 83.7 FL (87-102); Mean Platelet Volume 11.6 FL (9.6-12.0); Monocytes # 0.8 10*3/uL (0.11-0.8); Monocytes % 7.9 % (1.7-12.7); Neutrophils % 58.5 % (38.7-73.9); Platelet Count 316 T/CUMM (130-400); Red Blood Count 2.94 MC/CUMM (3.8-5.5); Red Cell Distribution Width 15.9 % (9.3-17.3); White Blood Count 10.2 T/CUMM (4-12)
[2018-02-13 06:23] LABS: Calcium 9.1 MG/DL (8.5-10.1); Osmolality,Calculated 299.5 MOS/KG (273-304)
[2018-02-13 06:27] LABS: Troponin I < 0.015 NG/ML (0.00-0.045)
[2018-02-13] MEDS: FUROSEMIDE 40 MG/4 ML VIAL IV SCH ×2 (10:17→17:14)
[2018-02-13] MEDS: PANTOPRAZOLE 40 MG TABLET PO SCH (10:17)
[2018-02-13] MEDS: INSULIN REGULAR 100 UNIT/ML SUBCUT SCH ×4 (10:25→22:05)
[2018-02-13] MEDS: SODIUM CHLORIDE 0.9% 1,000 ML IV SCH ×2 (17:10→20:42)
[2018-02-13] MEDS: LUBIPROSTONE 24 MCG CAPSULE PO SCH (20:43)
[2018-02-13] MEDS: FERROUS SULFATE 325 MG TABLET PO SCH (20:43)
[2018-02-13] MEDS: hydrALAZINE 25 MG TABLET PO SCH (20:43)
[2018-02-13] MEDS: GABAPENTIN 600 MG TABLET PO SCH (20:43)
[2018-02-13] MEDS: ENOXAPARIN 30 MG/0.3 ML SYRINGE SUBCUT SCH (20:44)
[2018-02-13] MEDS: LEVOFLOXACIN INJ 250 MG in PREMIX 1 EACH IV SCH (20:45)
[2018-02-14] MEDS: ALBUTEROL/IPRATROPIUM 3 ML NEB RESP TX SCH ×4 (00:16→19:40)
[2018-02-14 05:30] LABS: Basophils # 0.1 10*3/uL (0.0-0.2); Basophils % 0.5 % (0.0-0.8); Eosinophils # 0.2 10*3/uL (0.0-0.87); Eosinophils % 1.8 % (0.00-10.9); Hematocrit 25.3 VOL% (35.7-47.0); Hemoglobin 8.3 GM/DL (12.0-16.0); Immature Granulocytes % 0.7 %; Immature Granulocytes Absolute 0.07 #; Lymphocytes # 2.8 10*3/uL (1.4-4.0); Lymphocytes % 26.8 % (21.3-54.2); Mean Corpuscular HGB Conc 32.8 GM/DL (32-36); Mean Corpuscular Hemoglobin 27 PG (27-34); Mean Corpuscular Volume 81.4 FL (87-102); Mean Platelet Volume 11.2 FL (9.6-12.0); Monocytes % 9.8 % (1.7-12.7); Neutrophils # 6.3 10*3/uL (1.4-7.4); Neutrophils % 60.4 % (38.7-73.9); Platelet Count 298 T/CUMM (130-400); Red Blood Count 3.11 MC/CUMM (3.8-5.5); White Blood Count 10.4 T/CUMM (4-12)
[2018-02-14 06:05] LABS: Osmolality,Calculated 295.3 MOS/KG (273-304)
[2018-02-14] MEDS: SODIUM CHLORIDE 0.9% 1,000 ML IV SCH ×2 (06:27→21:10)
[2018-02-14] MEDS ORDERED: INSULIN ASPART PROTAMINE/ASPART 70/30 100 UNIT/ML SUBCUT SCH (07:30)
[2018-02-14] MEDS: GABAPENTIN 600 MG TABLET PO SCH ×3 (09:12→21:08)
[2018-02-14] MEDS: amLODIPine 10 MG TABLET PO SCH (09:12)
[2018-02-14] MEDS: ATORVASTATIN 80 MG TABLET PO SCH (09:12)
[2018-02-14] MEDS: DULoxetine 30 MG CAPSULE PO SCH (09:12)
[2018-02-14] MEDS: INSULIN REGULAR 100 UNIT/ML SUBCUT SCH ×4 (09:13→21:07)
[2018-02-14] MEDS: guaiFENesin/DM ER 600-30 MG TABLET PO PRN (09:13)
[2018-02-14] MEDS: FERROUS SULFATE 325 MG TABLET PO SCH ×2 (09:13→21:08)
[2018-02-14] MEDS: hydrALAZINE 25 MG TABLET PO SCH ×2 (09:13→21:08)
[2018-02-14] MEDS: PANTOPRAZOLE 40 MG TABLET PO SCH (09:13)
[2018-02-14] MEDS: ACETAMINOPHEN 325 MG TABLET PO PRN (09:23)
[2018-02-14] MEDS: FUROSEMIDE 40 MG/4 ML VIAL IV SCH (09:23)
[2018-02-14] MEDS: LUBIPROSTONE 24 MCG CAPSULE PO SCH ×2 (10:34→21:08)
[2018-02-14] MEDS: NICOTINE 21 MG/24 HR PATCH TRANSDERM SCH (17:13)
[2018-02-14] MEDS: INSULIN ASPART PROTAMINE/ASPART 70/30 100 UNIT/ML SUBCUT SCH (17:50)
[2018-02-14] MEDS: ENOXAPARIN 30 MG/0.3 ML SYRINGE SUBCUT SCH (21:08)
[2018-02-14] MEDS: LEVOFLOXACIN INJ 250 MG in PREMIX 1 EACH IV SCH (21:10)
[2018-02-15] MEDS: ALBUTEROL/IPRATROPIUM 3 ML NEB RESP TX SCH ×4 (00:32→19:31)
[2018-02-15] MEDS: LUBIPROSTONE 24 MCG CAPSULE PO SCH ×2 (09:27→21:20)
[2018-02-15] MEDS: ATORVASTATIN 80 MG TABLET PO SCH (09:27)
[2018-02-15] MEDS: FERROUS SULFATE 325 MG TABLET PO SCH ×2 (09:27→21:20)
[2018-02-15] MEDS: guaiFENesin/DM ER 600-30 MG TABLET PO PRN (09:27)
[2018-02-15] MEDS: DULoxetine 30 MG CAPSULE PO SCH (09:27)
[2018-02-15] MEDS: GABAPENTIN 600 MG TABLET PO SCH ×3 (09:28→21:20)
[2018-02-15] MEDS: FUROSEMIDE 40 MG TABLET PO SCH (09:28)
[2018-02-15] MEDS: amLODIPine 10 MG TABLET PO SCH (09:28)
[2018-02-15] MEDS: INSULIN ASPART PROTAMINE/ASPART 70/30 100 UNIT/ML SUBCUT SCH ×2 (09:29→16:29)
[2018-02-15] MEDS: hydrALAZINE 25 MG TABLET PO SCH ×2 (09:29→21:20)
[2018-02-15] MEDS: INSULIN REGULAR 100 UNIT/ML SUBCUT SCH ×4 (09:29→21:18)
[2018-02-15] MEDS: NICOTINE 21 MG/24 HR PATCH TRANSDERM SCH (09:30)
[2018-02-15] MEDS: PANTOPRAZOLE 40 MG TABLET PO SCH (09:31)
[2018-02-15] MEDS: SODIUM CHLORIDE 0.9% 1,000 ML IV SCH (10:12)
[2018-02-15] MEDS ORDERED: MAGNESIUM CITRATE 300 ML BOTTLE PO ONE (13:34)
[2018-02-15] MEDS: ENOXAPARIN 30 MG/0.3 ML SYRINGE SUBCUT SCH (21:19)
[2018-02-15] MEDS: QUEtiapine 100 MG TABLET PO SCH (21:20)
[2018-02-15] MEDS: LEVOFLOXACIN INJ 250 MG in PREMIX 1 EACH IV SCH (21:21)
[2018-02-16] MEDS: ALBUTEROL/IPRATROPIUM 3 ML NEB RESP TX SCH ×4 (00:20→19:06)
[2018-02-16] MEDS: SODIUM CHLORIDE 0.9% 1,000 ML IV SCH ×4 (00:50→21:47)
[2018-02-16 05:54] LABS: Basophils % 0.3 % (0.0-0.8); Eosinophils # 0.3 10*3/uL (0.0-0.87); Eosinophils % 2.7 % (0.00-10.9); Hematocrit 23.4 VOL% (35.7-47.0); Hemoglobin 7.3 GM/DL (12.0-16.0); Immature Granulocytes % 0.5 %; Immature Granulocytes Absolute 0.06 #; Lymphocytes # 3.7 10*3/uL (1.4-4.0); Lymphocytes % 31.9 % (21.3-54.2); Mean Corpuscular HGB Conc 31.2 GM/DL (32-36); Mean Corpuscular Hemoglobin 26 PG (27-34); Mean Corpuscular Volume 84.2 FL (87-102); Mean Platelet Volume 11.9 FL (9.6-12.0); Monocytes % 8.7 % (1.7-12.7); Neutrophils # 6.4 10*3/uL (1.4-7.4); Neutrophils % 55.9 % (38.7-73.9); Platelet Count 291 T/CUMM (130-400); Red Blood Count 2.78 MC/CUMM (3.8-5.5); Red Cell Distribution Width 16.4 % (9.3-17.3); White Blood Count 11.5 T/CUMM (4-12)
[2018-02-16 06:09] LABS: Albumin 2.2 G/DL (3.4-5.0); Bilirubin,Total 0.8 MG/DL (0.2-1.0); Calcium 8.8 MG/DL (8.5-10.1); Osmolality,Calculated 293.8 MOS/KG (273-304); Potassium 4.3 MMOL/L (3.5-5.1)
[2018-02-16] MEDS: INSULIN REGULAR 100 UNIT/ML SUBCUT SCH ×4 (08:42→21:46)
[2018-02-16] MEDS: INSULIN ASPART PROTAMINE/ASPART 70/30 100 UNIT/ML SUBCUT SCH ×2 (09:43→15:52)
[2018-02-16] MEDS: DULoxetine 30 MG CAPSULE PO SCH (09:46)
[2018-02-16] MEDS: amLODIPine 10 MG TABLET PO SCH (09:47)
[2018-02-16] MEDS: GABAPENTIN 600 MG TABLET PO SCH ×3 (09:47→21:45)
[2018-02-16] MEDS: hydrALAZINE 25 MG TABLET PO SCH ×2 (09:47→21:45)
[2018-02-16] MEDS: FERROUS SULFATE 325 MG TABLET PO SCH ×2 (09:47→21:45)
[2018-02-16] MEDS: FUROSEMIDE 40 MG TABLET PO SCH (09:47)
[2018-02-16] MEDS: PANTOPRAZOLE 40 MG TABLET PO SCH (09:47)
[2018-02-16] MEDS: ATORVASTATIN 80 MG TABLET PO SCH (09:47)
[2018-02-16] MEDS: NICOTINE 21 MG/24 HR PATCH TRANSDERM SCH (09:48)
[2018-02-16] MEDS: LUBIPROSTONE 24 MCG CAPSULE PO SCH ×2 (10:37→21:45)
[2018-02-16] MEDS ORDERED: BISACODYL 10 MG SUPP RECTAL PRN (10:39)
[2018-02-16] MEDS ORDERED: SODIUM PHOSPHATE ENEMA 133 ML BOTTLE RECTAL PRN (13:51)
[2018-02-16] MEDS: ENOXAPARIN 30 MG/0.3 ML SYRINGE SUBCUT SCH (21:45)
[2018-02-16] MEDS: QUEtiapine 100 MG TABLET PO SCH (21:45)
[2018-02-16] MEDS: guaiFENesin/DM ER 600-30 MG TABLET PO PRN (21:45)
[2018-02-16] MEDS: LEVOFLOXACIN INJ 250 MG in PREMIX 1 EACH IV SCH (21:46)
[2018-02-17] MEDS: ALBUTEROL/IPRATROPIUM 3 ML NEB RESP TX SCH ×4 (00:08→20:35)
[2018-02-17] MEDS: SODIUM CHLORIDE 0.9% 1,000 ML IV SCH ×3 (02:33→22:29)
[2018-02-17 05:52] LABS: Basophils % 0.3 % (0.0-0.8); Eosinophils # 0.1 10*3/uL (0.0-0.87); Hematocrit 27.7 VOL% (35.7-47.0); Hemoglobin 8.8 GM/DL (12.0-16.0); Immature Granulocytes % 0.8 %; Lymphocytes # 2.7 10*3/uL (1.4-4.0); Lymphocytes % 21.5 % (21.3-54.2); Mean Corpuscular HGB Conc 31.8 GM/DL (32-36); Mean Corpuscular Hemoglobin 27 PG (27-34); Mean Corpuscular Volume 85.2 FL (87-102); Mean Platelet Volume 12.1 FL (9.6-12.0); Monocytes # 0.8 10*3/uL (0.11-0.8); Monocytes % 6.7 % (1.7-12.7); Neutrophils # 8.8 10*3/uL (1.4-7.4); Neutrophils % 69.7 % (38.7-73.9); Platelet Count 301 T/CUMM (130-400); Red Blood Count 3.25 MC/CUMM (3.8-5.5); Red Cell Distribution Width 16.7 % (9.3-17.3); White Blood Count 12.6 T/CUMM (4-12)
[2018-02-17 06:29] LABS: Calcium 8.9 MG/DL (8.5-10.1); Osmolality,Calculated 292.1 MOS/KG (273-304); Potassium 4.1 MMOL/L (3.5-5.1)
[2018-02-17] MEDS: INSULIN ASPART PROTAMINE/ASPART 70/30 100 UNIT/ML SUBCUT SCH ×2 (08:45→16:42)
[2018-02-17] MEDS: NICOTINE 21 MG/24 HR PATCH TRANSDERM SCH (08:45)
[2018-02-17] MEDS: INSULIN REGULAR 100 UNIT/ML SUBCUT SCH ×4 (08:45→22:28)
[2018-02-17] MEDS: PANTOPRAZOLE 40 MG TABLET PO SCH (08:46)
[2018-02-17] MEDS: hydrALAZINE 25 MG TABLET PO SCH ×2 (08:46→22:27)
[2018-02-17] MEDS: ATORVASTATIN 80 MG TABLET PO SCH (08:46)
[2018-02-17] MEDS: amLODIPine 10 MG TABLET PO SCH (08:46)
[2018-02-17] MEDS: DULoxetine 30 MG CAPSULE PO SCH (08:46)
[2018-02-17] MEDS: LUBIPROSTONE 24 MCG CAPSULE PO SCH ×2 (08:46→22:27)
[2018-02-17] MEDS: FERROUS SULFATE 325 MG TABLET PO SCH ×2 (08:46→22:27)
[2018-02-17] MEDS: GABAPENTIN 600 MG TABLET PO SCH ×3 (08:46→22:27)
[2018-02-17] MEDS: FUROSEMIDE 40 MG TABLET PO SCH (08:46)
[2018-02-17 17:48] LABS: Apearance,Urine Slightly Hazy (Clear); Bacteria,Urine Many /HPF (Few); Bilirubin,Urine Negative (Negative); Blood, Urine Small mg/dL (Negative); Glucose,Urine (UA) Negative (Negative); Ketones,Urine Negative (Negative); Mucus,Urine Occasional /LPF (Occasional); Nitrite,Urine Negative (Negative); Protein,Urine >=500 MG/DL; RBC,Urine 3 /HPF (0-4); Urine Color Yellow (Yellow); Urine Specific Gravity 1.009 (1.001-1.035); Urine Urobilinogen < 2.0 EU/DL (0.2-1.0); WBC,Urine 3 /HPF (0-6)
[2018-02-17] MEDS: LEVOFLOXACIN INJ 250 MG in PREMIX 1 EACH IV SCH (22:25)
[2018-02-17] MEDS: QUEtiapine 100 MG TABLET PO SCH (22:27)
[2018-02-17] MEDS: ENOXAPARIN 30 MG/0.3 ML SYRINGE SUBCUT SCH (22:27)
[2018-02-18] MEDS: ALBUTEROL/IPRATROPIUM 3 ML NEB RESP TX SCH ×4 (02:15→19:06)
[2018-02-18 06:46] LABS: Basophils # 0.1 10*3/uL (0.0-0.2); Basophils % 0.4 % (0.0-0.8); Eosinophils # 0.2 10*3/uL (0.0-0.87); Eosinophils % 1.4 % (0.00-10.9); Hematocrit 23.4 VOL% (35.7-47.0); Immature Granulocytes % 0.5 %; Immature Granulocytes Absolute 0.06 #; Lymphocytes # 2.4 10*3/uL (1.4-4.0); Lymphocytes % 20.9 % (21.3-54.2); Mean Corpuscular HGB Conc 31.2 GM/DL (32-36); Mean Corpuscular Hemoglobin 26 PG (27-34); Mean Corpuscular Volume 83.6 FL (87-102); Mean Platelet Volume 10.8 FL (9.6-12.0); Monocytes % 8.7 % (1.7-12.7); Neutrophils # 7.7 10*3/uL (1.4-7.4); Neutrophils % 68.1 % (38.7-73.9); Platelet Count 285 T/CUMM (130-400); Red Cell Distribution Width 16.8 % (9.3-17.3); White Blood Count 11.4 T/CUMM (4-12)
[2018-02-18 07:01] LABS: Hemoglobin 7.3 GM/DL (12.0-16.0)
[2018-02-18 07:12] LABS: Calcium 8.6 MG/DL (8.5-10.1); Potassium 4.2 MMOL/L (3.5-5.1)
[2018-02-18] MEDS: DULoxetine 30 MG CAPSULE PO SCH (09:46)
[2018-02-18] MEDS: guaiFENesin/DM ER 600-30 MG TABLET PO PRN (09:46)
[2018-02-18] MEDS: hydrALAZINE 25 MG TABLET PO SCH ×2 (09:46→21:02)
[2018-02-18] MEDS: GABAPENTIN 600 MG TABLET PO SCH ×3 (09:47→21:02)
[2018-02-18] MEDS: FUROSEMIDE 40 MG TABLET PO SCH (09:47)
[2018-02-18] MEDS: PANTOPRAZOLE 40 MG TABLET PO SCH (09:47)
[2018-02-18] MEDS: amLODIPine 10 MG TABLET PO SCH (09:47)
[2018-02-18] MEDS: ATORVASTATIN 80 MG TABLET PO SCH (09:47)
[2018-02-18] MEDS: FERROUS SULFATE 325 MG TABLET PO SCH ×2 (09:47→21:02)
[2018-02-18] MEDS: INSULIN ASPART PROTAMINE/ASPART 70/30 100 UNIT/ML SUBCUT SCH ×2 (09:47→19:14)
[2018-02-18] MEDS: NICOTINE 21 MG/24 HR PATCH TRANSDERM SCH (10:22)
[2018-02-18] MEDS: LUBIPROSTONE 24 MCG CAPSULE PO SCH ×2 (10:22→22:24)
[2018-02-18] MEDS ORDERED: SODIUM CHLORIDE 0.9% 1,000 ML IV PRN (11:51)
[2018-02-18 12:24] LABS: % Iron Saturation 15.4 % (18-50); Ferritin 51.8 ng/ml (8-252)
[2018-02-18 13:50] LABS: Folate 6.2 NG/ML (5.4-24.0)
[2018-02-18] MEDS: INSULIN REGULAR 100 UNIT/ML SUBCUT SCH ×2 (20:34→21:02)
[2018-02-18] MEDS: QUEtiapine 100 MG TABLET PO SCH (21:02)
[2018-02-18] MEDS: SODIUM CHLORIDE 0.9% 1,000 ML IV SCH (21:11)
[2018-02-18] MEDS: LEVOFLOXACIN INJ 250 MG in PREMIX 1 EACH IV SCH (22:23)
[2018-02-18] MEDS: ENOXAPARIN 30 MG/0.3 ML SYRINGE SUBCUT SCH (22:24)
[2018-02-18 23:50] LABS: Hematocrit 24.6 VOL% (35.7-47.0); Hemoglobin 7.7 GM/DL (12.0-16.0)
[2018-02-19] MEDS: ALBUTEROL/IPRATROPIUM 3 ML NEB RESP TX SCH ×4 (00:22→19:25)
[2018-02-19] MEDS ORDERED: SODIUM CHLORIDE 0.9% 1,000 ML IV PRN (00:36)
[2018-02-19 09:26] LABS: Basophils # 0.1 10*3/uL (0.0-0.2); Basophils % 0.6 % (0.0-0.8); Eosinophils # 0.4 10*3/uL (0.0-0.87); Eosinophils % 3.4 % (0.00-10.9); Hematocrit 32.6 VOL% (35.7-47.0); Hemoglobin 10.5 GM/DL (12.0-16.0); Immature Granulocytes % 0.5 %; Immature Granulocytes Absolute 0.06 #; Lymphocytes # 2.9 10*3/uL (1.4-4.0); Lymphocytes % 25.7 % (21.3-54.2); Mean Corpuscular HGB Conc 32.2 GM/DL (32-36); Mean Corpuscular Hemoglobin 28 PG (27-34); Mean Corpuscular Volume 85.3 FL (87-102); Mean Platelet Volume 10.9 FL (9.6-12.0); Monocytes # 1.1 10*3/uL (0.11-0.8); Monocytes % 9.5 % (1.7-12.7); Neutrophils # 6.7 10*3/uL (1.4-7.4); Neutrophils % 60.3 % (38.7-73.9); Platelet Count 299 T/CUMM (130-400); Red Blood Count 3.82 MC/CUMM (3.8-5.5); Red Cell Distribution Width 15.7 % (9.3-17.3); White Blood Count 11.2 T/CUMM (4-12)
[2018-02-19] MEDS: GABAPENTIN 600 MG TABLET PO SCH ×3 (09:51→20:49)
[2018-02-19] MEDS: amLODIPine 10 MG TABLET PO SCH (09:51)
[2018-02-19] MEDS: guaiFENesin/DM ER 600-30 MG TABLET PO PRN (09:51)
[2018-02-19] MEDS: PANTOPRAZOLE 40 MG TABLET PO SCH (09:51)
[2018-02-19] MEDS: hydrALAZINE 25 MG TABLET PO SCH ×2 (09:51→20:49)
[2018-02-19] MEDS: FUROSEMIDE 40 MG TABLET PO SCH (09:51)
[2018-02-19] MEDS: ATORVASTATIN 80 MG TABLET PO SCH (09:52)
[2018-02-19] MEDS: INSULIN ASPART PROTAMINE/ASPART 70/30 100 UNIT/ML SUBCUT SCH ×2 (09:52→18:12)
[2018-02-19] MEDS: NICOTINE 21 MG/24 HR PATCH TRANSDERM SCH (09:52)
[2018-02-19] MEDS: DULoxetine 30 MG CAPSULE PO SCH (09:52)
[2018-02-19] MEDS: LUBIPROSTONE 24 MCG CAPSULE PO SCH ×2 (10:00→20:49)
[2018-02-19] MEDS: INSULIN REGULAR 100 UNIT/ML SUBCUT SCH ×4 (10:00→20:49)
[2018-02-19 10:01] LABS: Calcium 8.9 MG/DL (8.5-10.1); Osmolality,Calculated 290.3 MOS/KG (273-304); Potassium 3.9 MMOL/L (3.5-5.1)
[2018-02-19] MEDS ORDERED: TUBERCULIN SKIN TEST 0.1 ML SYRINGE INTRADERM ONE (11:25)
[2018-02-19] MEDS: FERROUS SULFATE 325 MG TABLET PO SCH ×3 (18:12→20:49)
[2018-02-19] MEDS: QUEtiapine 100 MG TABLET PO SCH (20:49)
[2018-02-19] MEDS: ENOXAPARIN 30 MG/0.3 ML SYRINGE SUBCUT SCH (20:49)
[2018-02-19] MEDS: LEVOFLOXACIN INJ 250 MG in PREMIX 1 EACH IV SCH (20:50)
[2018-02-20] MEDS: ALBUTEROL/IPRATROPIUM 3 ML NEB RESP TX SCH ×4 (01:08→20:24)
[2018-02-20] MEDS: INSULIN REGULAR 100 UNIT/ML SUBCUT SCH ×4 (09:43→20:11)
[2018-02-20] MEDS: FUROSEMIDE 40 MG TABLET PO SCH (10:07)
[2018-02-20] MEDS: amLODIPine 10 MG TABLET PO SCH (10:07)
[2018-02-20] MEDS: hydrALAZINE 25 MG TABLET PO SCH ×2 (10:07→20:15)
[2018-02-20] MEDS: DULoxetine 30 MG CAPSULE PO SCH (10:07)
[2018-02-20] MEDS: LUBIPROSTONE 24 MCG CAPSULE PO SCH ×2 (10:07→20:15)
[2018-02-20] MEDS: FERROUS SULFATE 325 MG TABLET PO SCH ×3 (10:07→20:15)
[2018-02-20] MEDS: PANTOPRAZOLE 40 MG TABLET PO SCH (10:07)
[2018-02-20] MEDS: GABAPENTIN 600 MG TABLET PO SCH ×3 (10:07→20:15)
[2018-02-20] MEDS: INSULIN ASPART PROTAMINE/ASPART 70/30 100 UNIT/ML SUBCUT SCH ×2 (10:08→17:00)
[2018-02-20] MEDS: NICOTINE 21 MG/24 HR PATCH TRANSDERM SCH (10:08)
[2018-02-20] MEDS: ATORVASTATIN 80 MG TABLET PO SCH (10:08)
[2018-02-20] MEDS: LEVOFLOXACIN INJ 250 MG in PREMIX 1 EACH IV SCH (20:15)
[2018-02-20] MEDS: ENOXAPARIN 30 MG/0.3 ML SYRINGE SUBCUT SCH (20:15)
[2018-02-20] MEDS: QUEtiapine 100 MG TABLET PO SCH (20:15)
[2018-02-21] MEDS: ALBUTEROL/IPRATROPIUM 3 ML NEB RESP TX SCH ×4 (00:25→19:03)
[2018-02-21] MEDS: PANTOPRAZOLE 40 MG TABLET PO SCH (10:17)
[2018-02-21] MEDS: INSULIN ASPART PROTAMINE/ASPART 70/30 100 UNIT/ML SUBCUT SCH ×2 (10:17→16:55)
[2018-02-21] MEDS: LUBIPROSTONE 24 MCG CAPSULE PO SCH ×2 (10:17→21:23)
[2018-02-21] MEDS: FUROSEMIDE 40 MG TABLET PO SCH (10:17)
[2018-02-21] MEDS: INSULIN REGULAR 100 UNIT/ML SUBCUT SCH ×4 (10:17→21:24)
[2018-02-21] MEDS: amLODIPine 10 MG TABLET PO SCH (10:17)
[2018-02-21] MEDS: GABAPENTIN 600 MG TABLET PO SCH ×3 (10:17→21:23)
[2018-02-21] MEDS: ATORVASTATIN 80 MG TABLET PO SCH (10:17)
[2018-02-21] MEDS: DULoxetine 30 MG CAPSULE PO SCH (10:17)
[2018-02-21] MEDS: hydrALAZINE 25 MG TABLET PO SCH ×2 (10:17→21:24)
[2018-02-21] MEDS: FERROUS SULFATE 325 MG TABLET PO SCH ×3 (10:17→21:23)
[2018-02-21] MEDS: NICOTINE 21 MG/24 HR PATCH TRANSDERM SCH (10:18)
[2018-02-21] MEDS: ACETAMINOPHEN 325 MG TABLET PO PRN (16:55)
[2018-02-21] MEDS: QUEtiapine 100 MG TABLET PO SCH (21:23)
[2018-02-21] MEDS: LEVOFLOXACIN INJ 250 MG in PREMIX 1 EACH IV SCH (21:24)
[2018-02-21] MEDS: ENOXAPARIN 30 MG/0.3 ML SYRINGE SUBCUT SCH (21:24)
[2018-02-22] MEDS: ALBUTEROL/IPRATROPIUM 3 ML NEB RESP TX SCH ×4 (00:06→19:11)
[2018-02-22] MEDS: INSULIN REGULAR 100 UNIT/ML SUBCUT SCH ×4 (08:54→21:21)
[2018-02-22] MEDS: INSULIN ASPART PROTAMINE/ASPART 70/30 100 UNIT/ML SUBCUT SCH ×2 (08:54→16:57)
[2018-02-22] MEDS: hydrALAZINE 25 MG TABLET PO SCH ×2 (08:55→21:21)
[2018-02-22] MEDS: PANTOPRAZOLE 40 MG TABLET PO SCH (08:55)
[2018-02-22] MEDS: DULoxetine 30 MG CAPSULE PO SCH (08:55)
[2018-02-22] MEDS: LUBIPROSTONE 24 MCG CAPSULE PO SCH ×2 (08:55→21:20)
[2018-02-22] MEDS: NICOTINE 21 MG/24 HR PATCH TRANSDERM SCH (08:55)
[2018-02-22] MEDS: FUROSEMIDE 40 MG TABLET PO SCH (08:55)
[2018-02-22] MEDS: amLODIPine 10 MG TABLET PO SCH (08:55)
[2018-02-22] MEDS: FERROUS SULFATE 325 MG TABLET PO SCH ×3 (08:55→21:21)
[2018-02-22] MEDS: GABAPENTIN 600 MG TABLET PO SCH ×3 (08:55→21:20)
[2018-02-22] MEDS: ATORVASTATIN 80 MG TABLET PO SCH (08:55)
[2018-02-22] MEDS: ENOXAPARIN 30 MG/0.3 ML SYRINGE SUBCUT SCH (21:19)
[2018-02-22] MEDS: LEVOFLOXACIN INJ 250 MG in PREMIX 1 EACH IV SCH (21:20)
[2018-02-22] MEDS: QUEtiapine 100 MG TABLET PO SCH (21:21)
[2018-02-23] MEDS: ALBUTEROL/IPRATROPIUM 3 ML NEB RESP TX SCH ×2 (01:02→08:14)
[2018-02-23] MEDS: INSULIN ASPART PROTAMINE/ASPART 70/30 100 UNIT/ML SUBCUT SCH (08:47)
[2018-02-23] MEDS: INSULIN REGULAR 100 UNIT/ML SUBCUT SCH (08:50)
[2018-02-23] MEDS: GABAPENTIN 600 MG TABLET PO SCH (10:20)
[2018-02-23] MEDS: FERROUS SULFATE 325 MG TABLET PO SCH (10:22)
[2018-02-23] MEDS: LUBIPROSTONE 24 MCG CAPSULE PO SCH (10:22)
[2018-02-23] MEDS: ATORVASTATIN 80 MG TABLET PO SCH (10:22)
[2018-02-23] MEDS: FUROSEMIDE 40 MG TABLET PO SCH (10:22)
[2018-02-23] MEDS: amLODIPine 10 MG TABLET PO SCH (10:23)
[2018-02-23] MEDS: PANTOPRAZOLE 40 MG TABLET PO SCH (10:26)
[2018-02-23] MEDS: NICOTINE 21 MG/24 HR PATCH TRANSDERM SCH (10:26)
[2018-02-23] MEDS: DULoxetine 30 MG CAPSULE PO SCH (10:31)
[2018-02-23] MEDS: hydrALAZINE 25 MG TABLET PO SCH (10:32)
[2018-02-23 11:35] VITALS: BP 155/80
== END 2018-02-23 11:57 | DRG 682 ==
LOC: EDBD → EDUNIT# → N.ED 14:52 → N.EDINP 17:39 → SUATTDRO 17:39 → N.5E 18:55
PROVIDERS: ADMIT Internal Medicine

== ENCOUNTER 2018-03-27 20:25 | Inpatient (IN) ==
[2018-03-27] MEDS ORDERED: LEVOFLOXACIN INJ 750 MG in PREMIX 1 EACH IV STA (20:47)
[2018-03-27] MEDS ORDERED: SODIUM CHLORIDE 0.9% 1,000 ML IV STA ×2 (20:47→23:00)
[2018-03-27 21:51] LABS: Basophils # 0.1 10*3/uL (0.0-0.2); Basophils % 0.4 % (0.0-0.8); Eosinophils # 0.2 10*3/uL (0.0-0.87); Hematocrit 25.2 VOL% (35.7-47.0); Hemoglobin 7.7 GM/DL (12.0-16.0); Immature Granulocytes % 0.6 %; Lymphocytes # 3.2 10*3/uL (1.4-4.0); Lymphocytes % 20.1 % (21.3-54.2); Mean Corpuscular HGB Conc 30.6 GM/DL (32-36); Mean Corpuscular Hemoglobin 27 PG (27-34); Monocytes # 1.3 10*3/uL (0.11-0.8); Monocytes % 8.2 % (1.7-12.7); Neutrophils # 11.1 10*3/uL (1.4-7.4); Neutrophils % 69.7 % (38.7-73.9); Platelet Count 494 T/CUMM (130-400); Red Blood Count 2.83 MC/CUMM (3.8-5.5); Red Cell Distribution Width 16.2 % (9.3-17.3); White Blood Count 15.9 T/CUMM (4-12)
[2018-03-27 22:01] LABS: PT Patient Result 10.3 SECS; Partial Thromboplastin Time 25.4 SECS (0-40)
[2018-03-27 22:13] LABS: Ammonia < 10 UMOL/L (11-32)
[2018-03-27 22:17] LABS: Alanine Aminotransferase 19 U/L (13-56); Albumin 2.3 G/DL (3.4-5.0); Alkaline Phosphatase 110 U/L (45-117); Aspartate Amino Transferase 20 U/L (0-37); Bilirubin,Total < 0.39 MG/DL (0.2-1.0); Blood Urea Nitrogen 95 MG/DL (7-18); Glucose 125 MG/DL (74-106); Lactic Acid 0.7 MMOL/L (0.4-2.0); Osmolality,Calculated 299.1 MOS/KG (273-304); Sodium 135 MMOL/L (136-145); Total Protein 7.6 G/DL (6.4-8.3); Troponin I < 0.015 NG/ML (0.00-0.045)
[2018-03-27 22:19] LABS: Potassium 6.2 MMOL/L (3.5-5.1)
[2018-03-27] MEDS ORDERED: ALBUTEROL NEB SOLN 5 MG/ML 20 ML/BOTTLE CONT NEB STA (22:33)
[2018-03-27] MEDS ORDERED: NICOTINE 21 MG/24 HR PATCH TRANSDERM PRN (22:50)
[2018-03-27] MEDS ORDERED: MORPHINE 4 MG/1 ML VIAL IV PRN (22:50)
[2018-03-27] MEDS ORDERED: DEXTROSE 50% 25 GM/50 ML VIAL IV PRN (22:50)
[2018-03-27] MEDS ORDERED: GLUCAGON 1 MG VIAL IM PRN (22:50)
[2018-03-27] MEDS ORDERED: diphenhydrAMINE CAP 25 MG CAPSULE PO PRN (22:50)
[2018-03-27] MEDS ORDERED: LACTULOSE 20 GM/30 ML UDCUP PO PRN (22:50)
[2018-03-27] MEDS ORDERED: ONDANSETRON 4 MG/2 ML VIAL IV PRN (22:50)
[2018-03-27 23:33] LABS: Apearance,Urine CLOUDY (Clear); Bilirubin,Urine Negative (Negative); Blood, Urine Small mg/dL (Negative); Glucose,Urine (UA) Negative (Negative); Hyaline Casts,Urine 6 /LPF (0-3); Ketones,Urine Negative (Negative); Mucus,Urine Occasional /LPF (Occasional); Nitrite,Urine Negative (Negative); Protein,Urine 100 MG/DL; RBC,Urine 19 /HPF (0-4); Squamous Epithelial Cell,Urine Occasional /HPF (0-10); Urine Color Yellow (Yellow); Urine Urobilinogen < 2.0 EU/DL (0.2-1.0); WBC,Urine 843 /HPF (0-6)
[2018-03-28] MEDS ORDERED: SODIUM POLYSTYRENE SULFATE 15 GM/60 ML BOTTLE PO STA ×2 (00:31→15:47)
[2018-03-28] MEDS: CALCIUM CHLORIDE 1,000 MG/10 ML SYRINGE IV STA ×2 (01:36→02:35)
[2018-03-28] MEDS: SODIUM CHLORIDE 0.9% 1,000 ML IV SCH ×4 (01:37→20:58)
[2018-03-28] MEDS: ACETAMINOPHEN 325 MG TABLET PO PRN (01:58)
[2018-03-28] MEDS ORDERED: AZTREONAM 1,000 MG in SODIUM CHLORIDE 0.9% 100 ML IV ONE (02:00)
[2018-03-28] MEDS ORDERED: CALCIUM GLUCONATE 1,000 MG in SODIUM CHLORIDE 0.9% 100 ML IV ONE (02:30)
[2018-03-28 04:46] LABS: Hematocrit 22.4 VOL% (35.7-47.0); Hemoglobin 6.7 GM/DL (12.0-16.0)
[2018-03-28 05:10] LABS: Bilirubin,Total 0.5 MG/DL (0.2-1.0); Calcium 8.7 MG/DL (8.5-10.1); Total Protein 6.5 G/DL (6.4-8.3)
[2018-03-28 05:40] LABS: Potassium 6.1 MMOL/L (3.5-5.1)
[2018-03-28] MEDS ORDERED: SODIUM CHLORIDE 0.9% 1,000 ML IV PRN (05:41)
[2018-03-28] MEDS ORDERED: LISINOPRIL 10 MG TABLET PO SCH (09:00)
[2018-03-28] MEDS: DULoxetine 30 MG CAPSULE PO SCH (09:18)
[2018-03-28] MEDS: PANTOPRAZOLE 40 MG TABLET PO SCH (09:18)
[2018-03-28] MEDS: ATORVASTATIN 80 MG TABLET PO SCH (09:18)
[2018-03-28] MEDS: FUROSEMIDE 40 MG TABLET PO SCH ×2 (09:18→20:56)
[2018-03-28] MEDS: FERROUS SULFATE 325 MG TABLET PO SCH ×2 (09:18→20:57)
[2018-03-28] MEDS: INSULIN REGULAR 100 UNIT/ML SUBCUT SCH ×4 (09:19→20:59)
[2018-03-28] MEDS: hydrALAZINE 25 MG TABLET PO SCH ×2 (09:19→21:02)
[2018-03-28] MEDS: GABAPENTIN 600 MG TABLET PO SCH ×3 (09:20→20:59)
[2018-03-28] MEDS: INSULIN ASPART PROTAMINE/ASPART 70/30 100 UNIT/ML SUBCUT SCH (09:20)
[2018-03-28] MEDS: amLODIPine 10 MG TABLET PO SCH (09:20)
[2018-03-28 09:57] LABS: Basophils % 0.3 % (0.0-0.8); Eosinophils # 0.3 10*3/uL (0.0-0.87); Hematocrit 23.1 VOL% (35.7-47.0); Hemoglobin 6.9 GM/DL (12.0-16.0); Immature Granulocytes % 0.5 %; Immature Granulocytes Absolute 0.07 #; Lymphocytes # 3.6 10*3/uL (1.4-4.0); Lymphocytes % 26.8 % (21.3-54.2); Mean Corpuscular HGB Conc 29.9 GM/DL (32-36); Mean Corpuscular Hemoglobin 27 PG (27-34); Mean Corpuscular Volume 89.5 FL (87-102); Monocytes # 1.2 10*3/uL (0.11-0.8); Monocytes % 9.3 % (1.7-12.7); Neutrophils # 8.1 10*3/uL (1.4-7.4); Neutrophils % 61.1 % (38.7-73.9); Platelet Count 451 T/CUMM (130-400); Red Blood Count 2.58 MC/CUMM (3.8-5.5); Red Cell Distribution Width 16.4 % (9.3-17.3); White Blood Count 13.3 T/CUMM (4-12)
[2018-03-28] MEDS ORDERED: DEXTROSE 50% 25 GM/50 ML VIAL IV PRN (14:19)
[2018-03-28] MEDS ORDERED: GLUCAGON 1 MG VIAL IM PRN (14:19)
[2018-03-28] MEDS: AZTREONAM 500 MG in SYRINGE 1 EACH IV SCH (15:24)
[2018-03-28 15:25] LABS: Calcium 8.3 MG/DL (8.5-10.1); Osmolality,Calculated 307.8 MOS/KG (273-304)
[2018-03-28] MEDS: POLYETHYLENE GLYCOL POWDER 17 GM PACK PO SCH (15:25)
[2018-03-28 15:37] LABS: Potassium 6.1 MMOL/L (3.5-5.1)
[2018-03-28 15:53] LABS: Hematocrit 24.3 VOL% (35.7-47.0); Hemoglobin 7.6 GM/DL (12.0-16.0)
[2018-03-28 16:06] LABS: Apearance,Urine CLEAR (Clear); Bilirubin,Urine Negative (Negative); Blood, Urine Negative (Negative); Glucose,Urine (UA) Negative (Negative); Hyaline Casts,Urine 3 /LPF (0-3); Ketones,Urine Negative (Negative); Mucus,Urine Occasional /LPF (Occasional); Nitrite,Urine Negative (Negative); Protein,Urine 100 MG/DL; Squamous Epithelial Cell,Urine Occasional /HPF (0-10); Urine Color Yellow (Yellow); Urine Specific Gravity 1.009 (1.001-1.035); Urine Urobilinogen < 2.0 EU/DL (0.2-1.0); WBC,Urine 1 /HPF (0-6)
[2018-03-28 20:55] LABS: Hematocrit 27.9 VOL% (35.7-47.0); Hemoglobin 8.7 GM/DL (12.0-16.0)
[2018-03-28] MEDS: QUEtiapine 100 MG TABLET PO SCH ×2 (21:02→23:00)
[2018-03-29] MEDS: SODIUM CHLORIDE 0.9% 1,000 ML IV SCH (01:54)
[2018-03-29] MEDS: AZTREONAM 500 MG in SYRINGE 1 EACH IV SCH ×2 (01:55→14:32)
[2018-03-29 04:23] LABS: Basophils # 0.1 10*3/uL (0.0-0.2); Basophils % 0.5 % (0.0-0.8); Eosinophils # 0.3 10*3/uL (0.0-0.87); Hematocrit 28.8 VOL% (35.7-47.0); Hemoglobin 8.8 GM/DL (12.0-16.0); Immature Granulocytes % 0.4 %; Immature Granulocytes Absolute 0.05 #; Lymphocytes # 2.7 10*3/uL (1.4-4.0); Mean Corpuscular HGB Conc 30.6 GM/DL (32-36); Mean Corpuscular Hemoglobin 27 PG (27-34); Mean Corpuscular Volume 88.6 FL (87-102); Mean Platelet Volume 10.4 FL (9.6-12.0); Monocytes # 1.1 10*3/uL (0.11-0.8); Monocytes % 8.7 % (1.7-12.7); Neutrophils # 8.7 10*3/uL (1.4-7.4); Neutrophils % 67.4 % (38.7-73.9); Platelet Count 464 T/CUMM (130-400); Red Blood Count 3.25 MC/CUMM (3.8-5.5); Red Cell Distribution Width 15.9 % (9.3-17.3); White Blood Count 12.8 T/CUMM (4-12)
[2018-03-29 04:45] LABS: Calcium 8.6 MG/DL (8.5-10.1); Osmolality,Calculated 305.1 MOS/KG (273-304); Potassium 5.5 MMOL/L (3.5-5.1)
[2018-03-29] MEDS: ACETAMINOPHEN 325 MG TABLET PO PRN (05:12)
[2018-03-29] MEDS: INSULIN REGULAR 100 UNIT/ML SUBCUT SCH ×3 (07:23→16:49)
[2018-03-29] MEDS ORDERED: SODIUM CHLORIDE 0.45% 1,000 ML IV SCH (08:30)
[2018-03-29] MEDS: hydrALAZINE 25 MG TABLET PO SCH (08:51)
[2018-03-29] MEDS: POLYETHYLENE GLYCOL POWDER 17 GM PACK PO SCH (08:51)
[2018-03-29] MEDS: DULoxetine 30 MG CAPSULE PO SCH (08:51)
[2018-03-29] MEDS: GABAPENTIN 600 MG TABLET PO SCH ×3 (08:52→20:39)
[2018-03-29] MEDS: FUROSEMIDE 40 MG TABLET PO SCH ×2 (08:52→20:38)
[2018-03-29] MEDS: PANTOPRAZOLE 40 MG TABLET PO SCH (08:52)
[2018-03-29] MEDS: FERROUS SULFATE 325 MG TABLET PO SCH ×2 (08:52→20:38)
[2018-03-29] MEDS: ATORVASTATIN 80 MG TABLET PO SCH (08:52)
[2018-03-29] MEDS: amLODIPine 10 MG TABLET PO SCH (08:52)
[2018-03-29] MEDS: INSULIN ASPART PROTAMINE/ASPART 70/30 100 UNIT/ML SUBCUT SCH (11:33)
[2018-03-29] MEDS: CLOTRIMAZOLE 1% CREAM 15 GM TUBE TOP SCH (16:49)
[2018-03-29] MEDS: QUEtiapine 100 MG TABLET PO SCH (20:39)
[2018-03-30] MEDS: CLOTRIMAZOLE 1% CREAM 15 GM TUBE TOP SCH ×3 (00:08→21:15)
[2018-03-30] MEDS: hydrALAZINE 25 MG TABLET PO SCH ×3 (00:08→21:15)
[2018-03-30] MEDS: INSULIN REGULAR 100 UNIT/ML SUBCUT SCH ×5 (00:10→21:15)
[2018-03-30] MEDS: AZTREONAM 500 MG in SYRINGE 1 EACH IV SCH ×2 (02:20→13:24)
[2018-03-30 06:15] LABS: Basophils # 0.1 10*3/uL (0.0-0.2); Basophils % 0.5 % (0.0-0.8); Eosinophils # 0.1 10*3/uL (0.0-0.87); Eosinophils % 0.7 % (0.00-10.9); Hematocrit 32.4 VOL% (35.7-47.0); Hemoglobin 9.9 GM/DL (12.0-16.0); Immature Granulocytes % 0.5 %; Immature Granulocytes Absolute 0.08 #; Lymphocytes # 3.3 10*3/uL (1.4-4.0); Lymphocytes % 19.3 % (21.3-54.2); Mean Corpuscular HGB Conc 30.6 GM/DL (32-36); Mean Corpuscular Hemoglobin 27 PG (27-34); Mean Corpuscular Volume 88.3 FL (87-102); Mean Platelet Volume 10.6 FL (9.6-12.0); Monocytes # 1.2 10*3/uL (0.11-0.8); Neutrophils # 12.4 10*3/uL (1.4-7.4); Platelet Count 429 T/CUMM (130-400); Red Blood Count 3.67 MC/CUMM (3.8-5.5); Red Cell Distribution Width 15.9 % (9.3-17.3); White Blood Count 17.2 T/CUMM (4-12)
[2018-03-30 06:31] LABS: Osmolality,Calculated 294.8 MOS/KG (273-304); Potassium 5.4 MMOL/L (3.5-5.1)
[2018-03-30] MEDS: amLODIPine 10 MG TABLET PO SCH (08:44)
[2018-03-30] MEDS: FERROUS SULFATE 325 MG TABLET PO SCH ×2 (08:45→21:15)
[2018-03-30] MEDS: FUROSEMIDE 40 MG TABLET PO SCH ×2 (08:45→21:14)
[2018-03-30] MEDS: POLYETHYLENE GLYCOL POWDER 17 GM PACK PO SCH (08:49)
[2018-03-30] MEDS: GABAPENTIN 600 MG TABLET PO SCH ×3 (08:49→21:15)
[2018-03-30] MEDS: ATORVASTATIN 80 MG TABLET PO SCH (08:49)
[2018-03-30] MEDS: DULoxetine 30 MG CAPSULE PO SCH (08:50)
[2018-03-30] MEDS: INSULIN ASPART PROTAMINE/ASPART 70/30 100 UNIT/ML SUBCUT SCH (08:51)
[2018-03-30] MEDS: PANTOPRAZOLE 40 MG TABLET PO SCH (08:51)
[2018-03-30] MEDS ORDERED: SKIN HEALING OINT (AQUAPHOR) 50 GM TUBE TOP PRN (16:33)
[2018-03-30] MEDS: QUEtiapine 100 MG TABLET PO SCH (21:15)
[2018-03-31] MEDS: AZTREONAM 500 MG in SYRINGE 1 EACH IV SCH ×2 (02:02→14:19)
[2018-03-31 06:05] LABS: Basophils # 0.1 10*3/uL (0.0-0.2); Basophils % 0.4 % (0.0-0.8); Eosinophils # 0.3 10*3/uL (0.0-0.87); Eosinophils % 1.9 % (0.00-10.9); Immature Granulocytes % 0.3 %; Immature Granulocytes Absolute 0.04 #; Lymphocytes # 3.2 10*3/uL (1.4-4.0); Lymphocytes % 22.2 % (21.3-54.2); Mean Corpuscular Hemoglobin 27 PG (27-34); Mean Corpuscular Volume 88.4 FL (87-102); Mean Platelet Volume 10.2 FL (9.6-12.0); Monocytes # 1.1 10*3/uL (0.11-0.8); Monocytes % 7.5 % (1.7-12.7); Neutrophils # 9.7 10*3/uL (1.4-7.4); Neutrophils % 67.7 % (38.7-73.9); Platelet Count 442 T/CUMM (130-400); Red Blood Count 3.28 MC/CUMM (3.8-5.5); Red Cell Distribution Width 15.8 % (9.3-17.3); White Blood Count 14.4 T/CUMM (4-12)
[2018-03-31 06:36] LABS: Albumin 1.8 G/DL (3.4-5.0); Bilirubin,Total 0.6 MG/DL (0.2-1.0); Calcium 9.1 MG/DL (8.5-10.1); Osmolality,Calculated 296.1 MOS/KG (273-304); Potassium 4.5 MMOL/L (3.5-5.1)
[2018-03-31] MEDS: GABAPENTIN 600 MG TABLET PO SCH ×3 (08:48→21:30)
[2018-03-31] MEDS: ATORVASTATIN 80 MG TABLET PO SCH (08:48)
[2018-03-31] MEDS: FUROSEMIDE 40 MG TABLET PO SCH ×2 (08:48→21:29)
[2018-03-31] MEDS: FERROUS SULFATE 325 MG TABLET PO SCH ×2 (08:48→21:31)
[2018-03-31] MEDS: PANTOPRAZOLE 40 MG TABLET PO SCH (08:48)
[2018-03-31] MEDS: hydrALAZINE 25 MG TABLET PO SCH ×3 (08:48→21:29)
[2018-03-31] MEDS: INSULIN ASPART PROTAMINE/ASPART 70/30 100 UNIT/ML SUBCUT SCH ×2 (08:49→16:25)
[2018-03-31] MEDS: INSULIN REGULAR 100 UNIT/ML SUBCUT SCH ×4 (08:50→22:58)
[2018-03-31] MEDS: DULoxetine 30 MG CAPSULE PO SCH (08:53)
[2018-03-31] MEDS: CLOTRIMAZOLE 1% CREAM 15 GM TUBE TOP SCH ×2 (08:53→21:34)
[2018-03-31] MEDS: POLYETHYLENE GLYCOL POWDER 17 GM PACK PO SCH (08:54)
[2018-03-31] MEDS: amLODIPine 10 MG TABLET PO SCH (08:54)
[2018-03-31] MEDS ORDERED: TUBERCULIN SKIN TEST 0.1 ML SYRINGE INTRADERM ONE (09:06)
[2018-03-31] MEDS: QUEtiapine 100 MG TABLET PO SCH (21:29)
[2018-04-01] MEDS: AZTREONAM 500 MG in SYRINGE 1 EACH IV SCH ×2 (04:19→13:28)
[2018-04-01 05:50] LABS: Basophils # 0.1 10*3/uL (0.0-0.2); Basophils % 0.5 % (0.0-0.8); Eosinophils # 0.4 10*3/uL (0.0-0.87); Eosinophils % 3.1 % (0.00-10.9); Hematocrit 31.1 VOL% (35.7-47.0); Hemoglobin 9.3 GM/DL (12.0-16.0); Immature Granulocytes % 0.4 %; Immature Granulocytes Absolute 0.05 #; Lymphocytes # 3.3 10*3/uL (1.4-4.0); Lymphocytes % 23.3 % (21.3-54.2); Mean Corpuscular HGB Conc 29.9 GM/DL (32-36); Mean Corpuscular Hemoglobin 27 PG (27-34); Mean Corpuscular Volume 89.4 FL (87-102); Mean Platelet Volume 10.1 FL (9.6-12.0); Monocytes # 1.2 10*3/uL (0.11-0.8); Monocytes % 8.6 % (1.7-12.7); Neutrophils % 64.1 % (38.7-73.9); Platelet Count 433 T/CUMM (130-400); Red Blood Count 3.48 MC/CUMM (3.8-5.5); Red Cell Distribution Width 15.7 % (9.3-17.3)
[2018-04-01 06:14] LABS: Osmolality,Calculated 293.5 MOS/KG (273-304); Potassium 4.9 MMOL/L (3.5-5.1)
[2018-04-01] MEDS: INSULIN ASPART PROTAMINE/ASPART 70/30 100 UNIT/ML SUBCUT SCH ×2 (08:05→17:56)
[2018-04-01] MEDS: INSULIN REGULAR 100 UNIT/ML SUBCUT SCH ×4 (08:05→22:00)
[2018-04-01] MEDS: FERROUS SULFATE 325 MG TABLET PO SCH ×3 (09:10→22:00)
[2018-04-01] MEDS: amLODIPine 10 MG TABLET PO SCH ×2 (09:20→09:45)
[2018-04-01] MEDS: hydrALAZINE 25 MG TABLET PO SCH ×3 (09:40→21:59)
[2018-04-01] MEDS: CLOTRIMAZOLE 1% CREAM 15 GM TUBE TOP SCH ×2 (09:41→22:08)
[2018-04-01] MEDS: GABAPENTIN 600 MG TABLET PO SCH ×3 (09:41→22:00)
[2018-04-01] MEDS ORDERED: BUPIVACAINE 0.5% 50 ML VIAL ONE (09:51)
[2018-04-01] MEDS ORDERED: PROPOFOL 200 MG/20 ML VIAL IV ONE (11:42)
[2018-04-01] MEDS ORDERED: SEVOFLURANE 1 UNIT/15 MINUTE INH ONE (11:42)
[2018-04-01] MEDS ORDERED: GLYCOPYRROLATE 0.4 MG/2 ML VIAL ONE (11:43)
[2018-04-01] MEDS ORDERED: ONDANSETRON 4 MG/2 ML VIAL ONE (11:43)
[2018-04-01] MEDS ORDERED: fentaNYL 100 MCG/2 ML VIAL ONE (11:43)
[2018-04-01] MEDS ORDERED: LACTATED RINGERS 1,000 ML IV ONE (11:43)
[2018-04-01] MEDS ORDERED: ROCURONIUM 100 MG/10 ML VIAL IV ONE (11:43)
[2018-04-01] MEDS ORDERED: NEOSTIGMINE 10 MG/10 ML VIAL ONE (11:43)
[2018-04-01] MEDS ORDERED: PHENYLEPHRINE 1 MG/10 ML SYRINGE IV ONE (11:43)
[2018-04-01] MEDS: DULoxetine 30 MG CAPSULE PO SCH (13:24)
[2018-04-01] MEDS: ATORVASTATIN 80 MG TABLET PO SCH (13:24)
[2018-04-01] MEDS: PANTOPRAZOLE 40 MG TABLET PO SCH (13:24)
[2018-04-01] MEDS: FUROSEMIDE 40 MG TABLET PO SCH ×2 (13:24→21:59)
[2018-04-01] MEDS: POLYETHYLENE GLYCOL POWDER 17 GM PACK PO SCH (13:25)
[2018-04-01] MEDS: QUEtiapine 100 MG TABLET PO SCH (22:00)
[2018-04-02] MEDS: AZTREONAM 500 MG in SYRINGE 1 EACH IV SCH ×2 (02:26→15:29)
[2018-04-02 05:24] LABS: Basophils % 0.4 % (0.0-0.8); Eosinophils # 0.3 10*3/uL (0.0-0.87); Hematocrit 29.1 VOL% (35.7-47.0); Immature Granulocytes % 0.3 %; Immature Granulocytes Absolute 0.03 #; Lymphocytes # 2.7 10*3/uL (1.4-4.0); Lymphocytes % 25.5 % (21.3-54.2); Mean Corpuscular HGB Conc 30.9 GM/DL (32-36); Mean Corpuscular Hemoglobin 28 PG (27-34); Mean Corpuscular Volume 89.8 FL (87-102); Mean Platelet Volume 9.8 FL (9.6-12.0); Monocytes % 9.4 % (1.7-12.7); Neutrophils # 6.5 10*3/uL (1.4-7.4); Neutrophils % 61.4 % (38.7-73.9); Platelet Count 357 T/CUMM (130-400); Red Blood Count 3.24 MC/CUMM (3.8-5.5); Red Cell Distribution Width 15.6 % (9.3-17.3); White Blood Count 10.5 T/CUMM (4-12)
[2018-04-02 05:38] LABS: Calcium 8.8 MG/DL (8.5-10.1); Osmolality,Calculated 293.3 MOS/KG (273-304); Potassium 4.7 MMOL/L (3.5-5.1)
[2018-04-02] MEDS ORDERED: PENTOXIFYLLINE 400 MG TABLET PO SCH (09:00)
[2018-04-02] MEDS: DULoxetine 30 MG CAPSULE PO SCH (09:15)
[2018-04-02] MEDS: GABAPENTIN 600 MG TABLET PO SCH ×3 (09:15→21:27)
[2018-04-02] MEDS: amLODIPine 10 MG TABLET PO SCH (09:16)
[2018-04-02] MEDS: PANTOPRAZOLE 40 MG TABLET PO SCH (09:16)
[2018-04-02] MEDS: FUROSEMIDE 40 MG TABLET PO SCH ×2 (09:16→21:27)
[2018-04-02] MEDS: FERROUS SULFATE 325 MG TABLET PO SCH ×2 (09:16→21:27)
[2018-04-02] MEDS: POLYETHYLENE GLYCOL POWDER 17 GM PACK PO SCH (09:17)
[2018-04-02] MEDS: ATORVASTATIN 80 MG TABLET PO SCH (09:17)
[2018-04-02] MEDS: CLOTRIMAZOLE 1% CREAM 15 GM TUBE TOP SCH ×2 (09:17→21:29)
[2018-04-02] MEDS: INSULIN REGULAR 100 UNIT/ML SUBCUT SCH ×4 (09:26→21:27)
[2018-04-02] MEDS: INSULIN ASPART PROTAMINE/ASPART 70/30 100 UNIT/ML SUBCUT SCH ×3 (09:32→17:21)
[2018-04-02] MEDS: PENTOXIFYLLINE 400 MG TABLET PO SCH ×3 (09:33→21:27)
[2018-04-02] MEDS: hydrALAZINE 25 MG TABLET PO SCH ×3 (09:33→21:27)
[2018-04-02] MEDS: SILVER SULFADIAZINE 1% CREAM 25 GM TUBE TOP SCH (10:10)
[2018-04-02] MEDS ORDERED: VANCOMYCIN INJ 1,000 MG in SODIUM CHLORIDE 0.9% 250 ML IV SCH (14:30)
[2018-04-02] MEDS: VANCOMYCIN INJ 1,250 MG in SODIUM CHLORIDE 0.9% 250 ML IV SCH (15:36)
[2018-04-02] MEDS: QUEtiapine 100 MG TABLET PO SCH (21:27)
[2018-04-03 06:04] LABS: Basophils # 0.1 10*3/uL (0.0-0.2); Basophils % 0.5 % (0.0-0.8); Eosinophils # 0.4 10*3/uL (0.0-0.87); Eosinophils % 3.6 % (0.00-10.9); Hematocrit 28.1 VOL% (35.7-47.0); Hemoglobin 8.7 GM/DL (12.0-16.0); Immature Granulocytes % 0.4 %; Immature Granulocytes Absolute 0.05 #; Lymphocytes # 3.4 10*3/uL (1.4-4.0); Lymphocytes % 30.1 % (21.3-54.2); Mean Corpuscular Hemoglobin 28 PG (27-34); Mean Corpuscular Volume 89.5 FL (87-102); Mean Platelet Volume 9.9 FL (9.6-12.0); Monocytes # 1.1 10*3/uL (0.11-0.8); Monocytes % 9.9 % (1.7-12.7); Neutrophils # 6.2 10*3/uL (1.4-7.4); Neutrophils % 55.5 % (38.7-73.9); Platelet Count 328 T/CUMM (130-400); Red Blood Count 3.14 MC/CUMM (3.8-5.5); Red Cell Distribution Width 15.5 % (9.3-17.3); White Blood Count 11.2 T/CUMM (4-12)
[2018-04-03 06:24] LABS: Calcium 8.7 MG/DL (8.5-10.1); Osmolality,Calculated 285.5 MOS/KG (273-304); Potassium 4.6 MMOL/L (3.5-5.1)
[2018-04-03] MEDS: INSULIN REGULAR 100 UNIT/ML SUBCUT SCH ×2 (08:15→16:13)
[2018-04-03] MEDS: ATORVASTATIN 80 MG TABLET PO SCH (09:38)
[2018-04-03] MEDS: FUROSEMIDE 40 MG TABLET PO SCH (09:39)
[2018-04-03] MEDS: GABAPENTIN 600 MG TABLET PO SCH ×2 (09:39→16:14)
[2018-04-03] MEDS: FERROUS SULFATE 325 MG TABLET PO SCH (09:39)
[2018-04-03] MEDS: PANTOPRAZOLE 40 MG TABLET PO SCH (09:39)
[2018-04-03] MEDS: DULoxetine 30 MG CAPSULE PO SCH (09:39)
[2018-04-03] MEDS: PENTOXIFYLLINE 400 MG TABLET PO SCH ×2 (09:39→16:14)
[2018-04-03] MEDS: amLODIPine 10 MG TABLET PO SCH (09:39)
[2018-04-03] MEDS: INSULIN ASPART PROTAMINE/ASPART 70/30 100 UNIT/ML SUBCUT SCH ×2 (09:40→09:56)
[2018-04-03] MEDS: CLOTRIMAZOLE 1% CREAM 15 GM TUBE TOP SCH (09:40)
[2018-04-03] MEDS: POLYETHYLENE GLYCOL POWDER 17 GM PACK PO SCH (09:40)
[2018-04-03] MEDS: hydrALAZINE 25 MG TABLET PO SCH ×2 (09:42→16:14)
[2018-04-03] MEDS: SILVER SULFADIAZINE 1% CREAM 25 GM TUBE TOP SCH (09:43)
[2018-04-03 13:13] VITALS: BP 101/68
[2018-04-03] MEDS: VANCOMYCIN INJ 1,250 MG in SODIUM CHLORIDE 0.9% 250 ML IV SCH (16:14)
== END 2018-04-03 14:00 | DRG 673 ==
LOC: EDBD → EDUNIT# → N.ED 20:25 → N.5E 22:50 → SUATTDRO 22:50 → N.5E 23:48
PROVIDERS: ADMIT Family Medicine; ATTEND Internal Medicine

== ENCOUNTER 2018-09-10 16:47 | Inpatient (IN) ==
[2018-09-10 17:41] LABS: Amorphous Crystals,Urine Occasional /HPF (Few); Apearance,Urine Slightly Hazy (Clear); Bacteria,Urine Many /HPF (Few); Bilirubin,Urine Negative (Negative); Blood, Urine Small mg/dL (Negative); Glucose,Urine (UA) Negative (Negative); Ketones,Urine Negative (Negative); Mucus,Urine Occasional /LPF (Occasional); Nitrite,Urine Negative (Negative); Protein,Urine 100 MG/DL; RBC,Urine 12 /HPF (0-4); Urine Color Yellow (Yellow); Urine Specific Gravity 1.011 (1.001-1.035); Urine Urobilinogen < 2.0 EU/DL (0.2-1.0); WBC,Urine 25 /HPF (0-6)
[2018-09-10 17:46] LABS: Basophils # 0.1 10*3/uL (0.0-0.2); Basophils % 0.5 % (0.0-0.8); Eosinophils # 0.3 10*3/uL (0.0-0.87); Eosinophils % 2.1 % (0.00-10.9); Hematocrit 25.3 VOL% (35.7-47.0); Hemoglobin 7.5 GM/DL (12.0-16.0); Immature Granulocytes % 0.5 %; Immature Granulocytes Absolute 0.06 #; Lymphocytes # 3.2 10*3/uL (1.4-4.0); Lymphocytes % 26.8 % (21.3-54.2); Mean Corpuscular HGB Conc 29.6 GM/DL (32-36); Mean Corpuscular Hemoglobin 26 PG (27-34); Mean Corpuscular Volume 86.1 FL (87-102); Mean Platelet Volume 10.4 FL (9.6-12.0); Monocytes # 0.9 10*3/uL (0.11-0.8); Monocytes % 7.5 % (1.7-12.7); Neutrophils # 7.6 10*3/uL (1.4-7.4); Neutrophils % 62.6 % (38.7-73.9); Platelet Count 264 T/CUMM (130-400); Red Blood Count 2.94 MC/CUMM (3.8-5.5); Red Cell Distribution Width 16.1 % (9.3-17.3); White Blood Count 12.1 T/CUMM (4-12)
[2018-09-10 18:09] LABS: Alanine Aminotransferase 12 U/L (13-56); Albumin 3.7 G/DL (3.4-5.0); Alkaline Phosphatase 90 U/L (45-117); Aspartate Amino Transferase 17 U/L (0-37); Bilirubin,Total < 0.39 MG/DL (0.2-1.0); Blood Urea Nitrogen 80 MG/DL (7-18); Glucose 173 MG/DL (74-106); Osmolality,Calculated 300.8 MOS/KG (273-304); Potassium 4.7 MMOL/L (3.5-5.1); Sodium 137 MMOL/L (136-145); Total Protein 7.6 G/DL (6.4-8.3)
[2018-09-10] MEDS ORDERED: PROMETHAZINE 25 MG/1 ML VIAL IM PRN (19:43)
[2018-09-10] MEDS ORDERED: MORPHINE 4 MG/1 ML VIAL IV PRN (19:43)
[2018-09-10] MEDS ORDERED: NICOTINE 21 MG/24 HR PATCH TRANSDERM PRN (19:43)
[2018-09-10] MEDS ORDERED: diphenhydrAMINE CAP 25 MG CAPSULE PO PRN (19:43)
[2018-09-10] MEDS ORDERED: ACETAMINOPHEN 325 MG TABLET PO PRN (19:43)
[2018-09-10] MEDS ORDERED: SODIUM CHLORIDE 0.9% 1,000 ML IV PRN (19:43)
[2018-09-10] MEDS ORDERED: ONDANSETRON 4 MG/2 ML VIAL IV PRN (19:43)
[2018-09-10] MEDS ORDERED: LEVOFLOXACIN INJ 500 MG in PREMIX 1 EACH IV SCH (20:00)
[2018-09-10] MEDS ORDERED: FAMOTIDINE INJ 40 MG in SODIUM CHLORIDE 0.9% 100 ML IV SCH (20:00)
[2018-09-10 20:22] LABS: Folate 15.6 NG/ML (5.4-24.0); Vitamin B12 609 PG/ML (211-911)
[2018-09-10] MEDS: SODIUM CHLORIDE 0.9% 1,000 ML IV SCH (22:42)
[2018-09-10] MEDS: FAMOTIDINE 20 MG/2 ML VIAL IV SCH (22:45)
[2018-09-10 23:31] LABS: Basophils # 0.1 10*3/uL (0.0-0.2); Basophils % 0.4 % (0.0-0.8); Eosinophils # 0.2 10*3/uL (0.0-0.87); Hematocrit 24.8 VOL% (35.7-47.0); Hemoglobin 7.6 GM/DL (12.0-16.0); Immature Granulocytes % 0.3 %; Immature Granulocytes Absolute 0.04 #; Lymphocytes # 3.1 10*3/uL (1.4-4.0); Lymphocytes % 26.3 % (21.3-54.2); Mean Corpuscular HGB Conc 30.6 GM/DL (32-36); Mean Corpuscular Hemoglobin 26 PG (27-34); Mean Corpuscular Volume 84.6 FL (87-102); Monocytes # 0.9 10*3/uL (0.11-0.8); Monocytes % 7.5 % (1.7-12.7); Neutrophils # 7.4 10*3/uL (1.4-7.4); Neutrophils % 63.5 % (38.7-73.9); Platelet Count 331 T/CUMM (130-400); Red Blood Count 2.93 MC/CUMM (3.8-5.5); White Blood Count 11.7 T/CUMM (4-12)
[2018-09-11 00:55] LABS: Sedimentation Rate-Westergren 128 MM/HR (0-30)
[2018-09-11] MEDS: PANTOPRAZOLE INJ 200 MG in SODIUM CHLORIDE 0.9% 250 ML IV SCH (01:26)
[2018-09-11 02:16] LABS: Platelet Estimate Normal; Polychromasia Few
[2018-09-11 06:38] LABS: Basophils % 0.4 % (0.0-0.8); Eosinophils # 0.2 10*3/uL (0.0-0.87); Hematocrit 24.8 VOL% (35.7-47.0); Hematocrit 25.2 VOL% (35.7-47.0); Hemoglobin 7.7 GM/DL (12.0-16.0); Hemoglobin 7.8 GM/DL (12.0-16.0); Immature Granulocytes % 0.4 %; Immature Granulocytes Absolute 0.04 #; Lymphocytes # 2.6 10*3/uL (1.4-4.0); Lymphocytes % 25.6 % (21.3-54.2); Mean Corpuscular HGB Conc 31.5 GM/DL (32-36); Mean Corpuscular Hemoglobin 26 PG (27-34); Mean Corpuscular Volume 82.1 FL (87-102); Mean Platelet Volume 9.7 FL (9.6-12.0); Monocytes # 0.9 10*3/uL (0.11-0.8); Monocytes % 8.7 % (1.7-12.7); Neutrophils # 6.4 10*3/uL (1.4-7.4); Neutrophils % 62.9 % (38.7-73.9); Platelet Count 273 T/CUMM (130-400); Red Blood Count 3.02 MC/CUMM (3.8-5.5); White Blood Count 10.1 T/CUMM (4-12)
[2018-09-11 07:29] LABS: Hemoglobin A1 (Alkaline) 97.3 % (96.5-98.5); Hemoglobin A2 (Alkaline) 2.7 % (1.5-3.5)
[2018-09-11] MEDS ORDERED: LACTATED RINGERS 500 ML IV SCH (09:00)
[2018-09-11] MEDS: FAMOTIDINE 20 MG/2 ML VIAL IV SCH ×2 (09:10→22:11)
[2018-09-11] MEDS ORDERED: LIDOCAINE 100 MG/5 ML SYRINGE ONE (10:00)
[2018-09-11] MEDS ORDERED: PROPOFOL 200 MG/20 ML VIAL IV ONE (10:00)
[2018-09-11] MEDS ORDERED: GLUCAGON 1 MG VIAL IM PRN (14:05)
[2018-09-11] MEDS ORDERED: DEXTROSE 50% 25 GM/50 ML SYRINGE IV PRN (14:05)
[2018-09-11] MEDS ORDERED: hydrALAZINE 20 MG/1 ML VIAL IV PRN (14:10)
[2018-09-11] MEDS: INSULIN LISPRO 100 UNIT/ML SUBCUT SCH ×2 (18:30→22:16)
[2018-09-11] MEDS: SODIUM CHLORIDE 0.9% 1,000 ML IV SCH (18:30)
[2018-09-12] MEDS: INSULIN LISPRO 100 UNIT/ML SUBCUT SCH ×4 (03:23→11:45)
[2018-09-12 08:14] LABS: Basophils % 0.3 % (0.0-0.8); Eosinophils # 0.1 10*3/uL (0.0-0.87); Eosinophils % 0.7 % (0.00-10.9); Hematocrit 27.9 VOL% (35.7-47.0); Hemoglobin 8.5 GM/DL (12.0-16.0); Immature Granulocytes % 0.4 %; Immature Granulocytes Absolute 0.05 #; Lymphocytes # 3.4 10*3/uL (1.4-4.0); Lymphocytes % 28.1 % (21.3-54.2); Mean Corpuscular HGB Conc 30.5 GM/DL (32-36); Mean Corpuscular Hemoglobin 25 PG (27-34); Mean Platelet Volume 9.6 FL (9.6-12.0); Monocytes # 0.8 10*3/uL (0.11-0.8); Monocytes % 6.4 % (1.7-12.7); Neutrophils # 7.8 10*3/uL (1.4-7.4); Neutrophils % 64.1 % (38.7-73.9); Platelet Count 312 T/CUMM (130-400); Red Blood Count 3.36 MC/CUMM (3.8-5.5); Red Cell Distribution Width 17.1 % (9.3-17.3); White Blood Count 12.1 T/CUMM (4-12)
[2018-09-12] MEDS: FAMOTIDINE 20 MG/2 ML VIAL IV SCH (08:30)
[2018-09-12] MEDS: SODIUM CHLORIDE 0.9% 1,000 ML IV SCH (08:32)
[2018-09-12] MEDS: PANTOPRAZOLE INJ 200 MG in SODIUM CHLORIDE 0.9% 250 ML IV SCH (08:32)
[2018-09-12 08:41] LABS: Alanine Aminotransferase 9 U/L (13-56); Albumin 3.3 G/DL (3.4-5.0); Alkaline Phosphatase 83 U/L (45-117); Aspartate Amino Transferase 12 U/L (0-37); Bilirubin,Total < 0.39 MG/DL (0.2-1.0); Blood Urea Nitrogen 62 MG/DL (7-18); Calcium 9.2 MG/DL (8.5-10.1); Glucose 136 MG/DL (74-106); Osmolality,Calculated 298.4 MOS/KG (273-304); Potassium 3.4 MMOL/L (3.5-5.1); Sodium 140 MMOL/L (136-145)
[2018-09-12 11:55] VITALS: BP 166/71
[2018-09-12] MEDS ORDERED: POTASSIUM CHLORIDE 20 MEQ TABLET PO ONE (12:13)
[2018-09-12] MEDS ORDERED: PANTOPRAZOLE 40 MG TABLET PO SCH (21:00)
[2018-09-14] MEDS ORDERED: PANTOPRAZOLE 40 MG VIAL IV SCH (21:00)
== END 2018-09-12 16:20 | DRG 377 ==
LOC: EDUNIT# → EDBD → N.ED 16:47 → N.EDINP 19:43 → SUATTDRO 19:43 → N.EDINP 20:40 → N.2E 22:26
PROVIDERS: ADMIT Emergency Medicine; ATTEND Internal Medicine Infectious Disease

== ENCOUNTER 2019-04-09 09:46 | Inpatient (IN) ==
[2019-04-09] MEDS ORDERED: ONDANSETRON 4 MG/2 ML VIAL IV STA (10:11)
[2019-04-09] MEDS ORDERED: methylPREDNISolone SOD SUC 125 MG/2 ML VIAL IV STA (10:11)
[2019-04-09] MEDS ORDERED: ALBUTEROL 2.5 MG/3 ML NEB RESP TX SCH (10:30)
[2019-04-09 10:33] LABS: Basophils # 0.1 10*3/uL (0.0-0.2); Basophils % 0.7 % (0.0-0.8); Eosinophils # 0.2 10*3/uL (0.0-0.87); Eosinophils % 1.8 % (0.00-10.9); Hematocrit 19.9 VOL% (35.7-47.0); Immature Granulocytes Absolute 0.12 #; Lymphocytes # 1.5 10*3/uL (1.4-4.0); Lymphocytes % 12.3 % (21.3-54.2); Mean Corpuscular HGB Conc 29.6 GM/DL (32-36); Mean Corpuscular Volume 88.4 FL (87-102); Mean Platelet Volume 10.6 FL (9.6-12.0); Monocytes % 5.9 % (1.7-12.7); Neutrophils % 78.3 % (38.7-73.9); Platelet Count 374 T/CUMM (130-400); Red Blood Count 2.25 MC/CUMM (3.8-5.5); Red Cell Distribution Width 17.4 % (9.3-17.3); White Blood Count 12.1 T/CUMM (4-12)
[2019-04-09 10:41] LABS: Hemoglobin 5.9 GM/DL (12.0-16.0)
[2019-04-09 10:48] LABS: Albumin 3.2 G/DL (3.4-5.0); Bilirubin,Total 0.4 MG/DL (0.2-1.0); Calcium 9.4 MG/DL (8.5-10.1); Osmolality,Calculated 298.3 MOS/KG (273-304); Total Protein 7.9 G/DL (6.4-8.3)
[2019-04-09 10:51] LABS: PT Patient Result 11.2 SECS (9.6-12.2); Partial Thromboplastin Time 28.5 SECS (20.8-36.0)
[2019-04-09] MEDS ORDERED: VANCOMYCIN INJ 1,000 MG in SODIUM CHLORIDE 0.9% 250 ML IV STA (11:07)
[2019-04-09] MEDS ORDERED: SODIUM CHLORIDE 0.9% 1,000 ML IV PRN ×2 (13:31→14:06)
[2019-04-09] MEDS ORDERED: SODIUM CHLORIDE 0.9% 2,650 ML IV ONE (13:52)
[2019-04-09] MEDS ORDERED: LEVOFLOXACIN INJ 750 MG in PREMIX 1 EACH IV SCH (14:00)
[2019-04-09] MEDS ORDERED: AZTREONAM 2,000 MG in SODIUM CHLORIDE 0.9% 100 ML IV SCH (14:00)
[2019-04-09] MEDS: ALBUTEROL 2.5 MG/3 ML NEB RESP TX SCH ×2 (14:06→19:44)
[2019-04-09] MEDS ORDERED: CEFEPIME 1,000 MG in SODIUM CHLORIDE 0.9% 100 ML IV SCH (15:00)
[2019-04-09] MEDS ORDERED: GLUCAGON 1 MG VIAL IM PRN (17:29)
[2019-04-09] MEDS ORDERED: DEXTROSE 50% 25 GM/50 ML VIAL IV PRN (17:29)
[2019-04-09] MEDS: CEFEPIME 1,000 MG in SODIUM CHLORIDE 0.9% 100 ML IV SCH (17:39)
[2019-04-09] MEDS: LEVOFLOXACIN INJ 750 MG in PREMIX 1 EACH IV SCH (18:39)
[2019-04-09] MEDS ORDERED: FERROUS SULFATE 325 MG TABLET PO SCH (21:00)
[2019-04-09] MEDS ORDERED: PENTOXIFYLLINE 400 MG TABLET PO SCH (21:00)
[2019-04-09] MEDS: GABAPENTIN 600 MG TABLET PO SCH (22:01)
[2019-04-09] MEDS ORDERED: FUROSEMIDE 20 MG/2 ML VIAL IV ONE (23:00)
[2019-04-10] MEDS: CEFEPIME 1,000 MG in SODIUM CHLORIDE 0.9% 100 ML IV SCH ×2 (04:42→17:10)
[2019-04-10] MEDS ORDERED: FUROSEMIDE 20 MG/2 ML VIAL IV ONE (05:11)
[2019-04-10] MEDS: ALBUTEROL 2.5 MG/3 ML NEB RESP TX SCH ×4 (07:03→19:23)
[2019-04-10] MEDS ORDERED: GLUCAGON 1 MG VIAL IM PRN (09:28)
[2019-04-10] MEDS ORDERED: DEXTROSE 50% 25 GM/50 ML VIAL IV PRN (09:28)
[2019-04-10] MEDS: PANTOPRAZOLE 40 MG VIAL IV SCH (09:37)
[2019-04-10] MEDS: POLYETHYLENE GLYCOL POWDER 17 GM PACK PO SCH (09:38)
[2019-04-10] MEDS: ATORVASTATIN 40 MG TABLET PO SCH (09:39)
[2019-04-10] MEDS: INSULIN NPH/REGULAR 70/30 100 UNIT/ML SUBCUT SCH ×2 (09:39→16:50)
[2019-04-10] MEDS: GABAPENTIN 600 MG TABLET PO SCH ×2 (09:40→20:51)
[2019-04-10] MEDS: DULoxetine 30 MG CAPSULE PO SCH (09:40)
[2019-04-10] MEDS: ASCORBIC ACID 500 MG TABLET PO SCH (09:40)
[2019-04-10] MEDS: amLODIPine 5 MG TABLET PO SCH (09:40)
[2019-04-10] MEDS: FUROSEMIDE 20 MG TABLET PO SCH (09:41)
[2019-04-10] MEDS: MULTIVITAMIN (CENTRUM) TABLET PO SCH (09:44)
[2019-04-10 09:56] LABS: Basophils % 0.3 % (0.0-0.8); Hematocrit 29.8 VOL% (35.7-47.0); Immature Granulocytes % 1.8 %; Immature Granulocytes Absolute 0.21 #; Lymphocytes # 1.5 10*3/uL (1.4-4.0); Lymphocytes % 13.2 % (21.3-54.2); Mean Corpuscular HGB Conc 30.2 GM/DL (32-36); Mean Corpuscular Volume 91.1 FL (87-102); Mean Platelet Volume 9.8 FL (9.6-12.0); Monocytes % 10.2 % (1.7-12.7); NRBC # 0.04 10*3/uL; Neutrophils % 74.5 % (38.7-73.9); Platelet Count 345 T/CUMM (130-400); Red Blood Count 3.27 MC/CUMM (3.8-5.5); Red Cell Distribution Width 15.9 % (9.3-17.3); White Blood Count 11.5 T/CUMM (4-12)
[2019-04-10 10:31] LABS: Albumin 3.2 G/DL (3.4-5.0); Bilirubin,Total 0.5 MG/DL (0.2-1.0); Calcium 9.2 MG/DL (8.5-10.1); Osmolality,Calculated 308.1 MOS/KG (273-304); Risk Ratio 2.9; Thyroid Stimulating Hormone 1.08 uIU/ml (0.358-3.74); VLDL CHOLESTEROL 23.4 MG/DL
[2019-04-10] MEDS: INSULIN REGULAR 100 UNIT/ML SUBCUT SCH ×3 (13:32→21:16)
[2019-04-10 18:24] LABS: Apearance,Urine CLOUDY (Clear); Bilirubin,Urine Negative (Negative); Blood, Urine Negative (Negative); Glucose,Urine (UA) 50 mg/dL (Negative); Ketones,Urine 5 mg/dL (Negative); Nitrite,Urine Negative (Negative); Protein,Urine >=500 MG/DL; RBC,Urine 9 /HPF (0-4); Squamous Epithelial Cell,Urine Occasional /HPF (0-10); Urine Color Yellow (Yellow); Urine Specific Gravity 1.013 (1.001-1.035); Urine Urobilinogen < 2.0 EU/DL (0.2-1.0); WBC,Urine 2 /HPF (0-6)
[2019-04-11] MEDS: CEFEPIME 1,000 MG in SODIUM CHLORIDE 0.9% 100 ML IV SCH ×2 (03:56→17:36)
[2019-04-11 04:54] LABS: Basophils # 0.1 10*3/uL (0.0-0.2); Basophils % 0.5 % (0.0-0.8); Eosinophils # 0.1 10*3/uL (0.0-0.87); Eosinophils % 0.6 % (0.00-10.9); Hematocrit 29.8 VOL% (35.7-47.0); Hemoglobin 9.1 GM/DL (12.0-16.0); Immature Granulocytes % 2.5 %; Immature Granulocytes Absolute 0.31 #; Lymphocytes # 1.7 10*3/uL (1.4-4.0); Lymphocytes % 13.3 % (21.3-54.2); Mean Corpuscular HGB Conc 30.5 GM/DL (32-36); Mean Corpuscular Volume 90.6 FL (87-102); Mean Platelet Volume 10.7 FL (9.6-12.0); Monocytes % 8.6 % (1.7-12.7); NRBC # 0.04 10*3/uL; Neutrophils % 74.5 % (38.7-73.9); Platelet Count 361 T/CUMM (130-400); Red Blood Count 3.29 MC/CUMM (3.8-5.5); Red Cell Distribution Width 16.3 % (9.3-17.3); White Blood Count 12.5 T/CUMM (4-12)
[2019-04-11 05:09] LABS: Albumin 3.1 G/DL (3.4-5.0); Bilirubin,Total 0.8 MG/DL (0.2-1.0); Calcium 9.2 MG/DL (8.5-10.1); Osmolality,Calculated 300.5 MOS/KG (273-304); Total Protein 7.8 G/DL (6.4-8.3)
[2019-04-11] MEDS: ALBUTEROL 2.5 MG/3 ML NEB RESP TX SCH ×4 (07:00→19:51)
[2019-04-11] MEDS: INSULIN REGULAR 100 UNIT/ML SUBCUT SCH ×4 (07:47→22:36)
[2019-04-11] MEDS: INSULIN NPH/REGULAR 70/30 100 UNIT/ML SUBCUT SCH ×2 (09:47→17:34)
[2019-04-11] MEDS: PANTOPRAZOLE 40 MG VIAL IV SCH (09:47)
[2019-04-11] MEDS: GABAPENTIN 600 MG TABLET PO SCH ×2 (09:48→22:36)
[2019-04-11] MEDS: amLODIPine 5 MG TABLET PO SCH (09:48)
[2019-04-11] MEDS: DULoxetine 30 MG CAPSULE PO SCH (09:49)
[2019-04-11] MEDS: BISACODYL 5 MG TABLET PO SCH ×3 (09:49→22:36)
[2019-04-11] MEDS: MULTIVITAMIN (CENTRUM) TABLET PO SCH (09:49)
[2019-04-11] MEDS: ASCORBIC ACID 500 MG TABLET PO SCH (09:49)
[2019-04-11] MEDS: FUROSEMIDE 20 MG TABLET PO SCH (09:49)
[2019-04-11] MEDS: ATORVASTATIN 40 MG TABLET PO SCH (09:50)
[2019-04-11] MEDS: ONDANSETRON 4 MG/2 ML VIAL IV PRN ×2 (13:55→20:22)
[2019-04-11] MEDS ORDERED: PROMETHAZINE INJ 12.5 MG in SODIUM CHLORIDE 0.9% 50 ML IV ONE (14:48)
[2019-04-11] MEDS ORDERED: POLYETHYLENE GLYCOL 3350/ELECTROLYTES 4,000 ML BOTTLE PO ONE (18:00)
[2019-04-11] MEDS ORDERED: POLYETHYLENE GLYCOL 3350/ELECTROLYTES 4,000 ML BOTTLE NG ONE (18:00)
[2019-04-11] MEDS: LEVOFLOXACIN INJ 750 MG in PREMIX 1 EACH IV SCH (18:37)
[2019-04-11] MEDS ORDERED: MAGNESIUM CITRATE 300 ML BOTTLE PO ONE (21:00)
[2019-04-12] MEDS: CEFEPIME 1,000 MG in SODIUM CHLORIDE 0.9% 100 ML IV SCH (03:45)
[2019-04-12 07:01] LABS: Protein/Creatinine Ratio,Urine 4.1 RATIO
[2019-04-12] MEDS ORDERED: LACTATED RINGERS 1,000 ML IV SCH (07:30)
[2019-04-12 08:12] LABS: Basophils % 0.4 % (0.0-0.8); Hematocrit 29.2 VOL% (35.7-47.0); Hemoglobin 8.8 GM/DL (12.0-16.0); Immature Granulocytes % 2.8 %; Immature Granulocytes Absolute 0.32 #; Lymphocytes # 0.9 10*3/uL (1.4-4.0); Lymphocytes % 7.9 % (21.3-54.2); Mean Corpuscular HGB Conc 30.1 GM/DL (32-36); Mean Corpuscular Volume 90.7 FL (87-102); Mean Platelet Volume 11.1 FL (9.6-12.0); Monocytes % 5.2 % (1.7-12.7); NRBC # 0.08 10*3/uL; Neutrophils % 83.7 % (38.7-73.9); Platelet Count 364 T/CUMM (130-400); Red Blood Count 3.22 MC/CUMM (3.8-5.5); Red Cell Distribution Width 16.7 % (9.3-17.3); White Blood Count 11.3 T/CUMM (4-12)
[2019-04-12 08:34] LABS: Albumin 3.4 G/DL (3.4-5.0); Bilirubin,Total 0.6 MG/DL (0.2-1.0); Calcium 9.4 MG/DL (8.5-10.1); Osmolality,Calculated 312.4 MOS/KG (273-304); Total Protein 8.5 G/DL (6.4-8.3)
[2019-04-12] MEDS: ALBUTEROL 2.5 MG/3 ML NEB RESP TX SCH ×4 (08:36→19:38)
[2019-04-12] MEDS: FUROSEMIDE 20 MG TABLET PO SCH (09:36)
[2019-04-12] MEDS: DULoxetine 30 MG CAPSULE PO SCH (09:36)
[2019-04-12] MEDS: ASCORBIC ACID 500 MG TABLET PO SCH (09:36)
[2019-04-12] MEDS: ATORVASTATIN 40 MG TABLET PO SCH (09:36)
[2019-04-12] MEDS: GABAPENTIN 600 MG TABLET PO SCH ×2 (09:36→22:04)
[2019-04-12] MEDS: MULTIVITAMIN (CENTRUM) TABLET PO SCH (09:36)
[2019-04-12] MEDS: PANTOPRAZOLE 40 MG VIAL IV SCH (09:37)
[2019-04-12] MEDS: ONDANSETRON 4 MG/2 ML VIAL IV PRN ×2 (09:37→20:54)
[2019-04-12] MEDS: amLODIPine 5 MG TABLET PO SCH (09:37)
[2019-04-12] MEDS: INSULIN REGULAR 100 UNIT/ML SUBCUT SCH ×4 (09:38→20:57)
[2019-04-12] MEDS: INSULIN NPH/REGULAR 70/30 100 UNIT/ML SUBCUT SCH ×2 (09:38→16:40)
[2019-04-12] MEDS ORDERED: POLYETHYLENE GLYCOL POWDER 255 GM BOTTLE PO ONE (12:00)
[2019-04-12] MEDS ORDERED: SODIUM POLYSTYRENE SULFATE 15 GM/60 ML BOTTLE PO STA (12:06)
[2019-04-12 14:04] LABS: Calcium 9.3 MG/DL (8.5-10.1); Osmolality,Calculated 313.3 MOS/KG (273-304)
[2019-04-12] MEDS: SODIUM CHLORIDE 0.9% 1,000 ML IV SCH (14:20)
[2019-04-13 04:55] LABS: Basophils # 0.1 10*3/uL (0.0-0.2); Basophils % 0.5 % (0.0-0.8); Eosinophils % 0.1 % (0.00-10.9); Hematocrit 26.3 VOL% (35.7-47.0); Immature Granulocytes % 2.4 %; Immature Granulocytes Absolute 0.26 #; Lymphocytes % 9.4 % (21.3-54.2); Mean Corpuscular HGB Conc 30.4 GM/DL (32-36); Mean Corpuscular Volume 90.4 FL (87-102); Mean Platelet Volume 10.9 FL (9.6-12.0); Monocytes % 5.7 % (1.7-12.7); NRBC # 0.07 10*3/uL; Neutrophils % 81.9 % (38.7-73.9); Platelet Count 336 T/CUMM (130-400); Red Blood Count 2.91 MC/CUMM (3.8-5.5); White Blood Count 10.8 T/CUMM (4-12)
[2019-04-13 05:02] LABS: INR 1.1; PT Patient Result 11.6 SECS (9.6-12.2)
[2019-04-13 05:24] LABS: Bilirubin,Total 0.8 MG/DL (0.2-1.0); Calcium 8.9 MG/DL (8.5-10.1); Osmolality,Calculated 310.4 MOS/KG (273-304); Total Protein 7.3 G/DL (6.4-8.3)
[2019-04-13] MEDS: ALBUTEROL 2.5 MG/3 ML NEB RESP TX SCH ×4 (07:01→18:55)
[2019-04-13] MEDS: INSULIN REGULAR 100 UNIT/ML SUBCUT SCH ×4 (07:11→21:54)
[2019-04-13] MEDS ORDERED: LACTATED RINGERS 1,000 ML IV SCH (08:00)
[2019-04-13] MEDS: INSULIN NPH/REGULAR 70/30 100 UNIT/ML SUBCUT SCH ×2 (08:46→16:55)
[2019-04-13] MEDS ORDERED: LEVOFLOXACIN 750 MG TABLET PO SCH (09:00)
[2019-04-13] MEDS: PANTOPRAZOLE 40 MG VIAL IV SCH (09:43)
[2019-04-13] MEDS: POLYETHYLENE GLYCOL POWDER 17 GM PACK PO SCH (09:43)
[2019-04-13] MEDS: DULoxetine 30 MG CAPSULE PO SCH (09:44)
[2019-04-13] MEDS: amLODIPine 5 MG TABLET PO SCH (09:44)
[2019-04-13] MEDS: MULTIVITAMIN (CENTRUM) TABLET PO SCH (09:44)
[2019-04-13] MEDS: ASCORBIC ACID 500 MG TABLET PO SCH (09:45)
[2019-04-13] MEDS: ATORVASTATIN 40 MG TABLET PO SCH (09:45)
[2019-04-13] MEDS: GABAPENTIN 600 MG TABLET PO SCH ×2 (09:46→21:54)
[2019-04-13] MEDS ORDERED: POLYETHYLENE GLYCOL POWDER 255 GM BOTTLE PO ONE (10:00)
[2019-04-13] MEDS: ONDANSETRON 4 MG/2 ML VIAL IV PRN (10:06)
[2019-04-13] MEDS: SODIUM CHLORIDE 0.9% 1,000 ML IV SCH ×2 (10:56→21:54)
[2019-04-13 15:02] LABS: Amorphous Crystals,Urine Occasional /HPF (Few); Apearance,Urine CLOUDY (Clear); Bilirubin,Urine Negative (Negative); Blood, Urine Negative (Negative); Glucose,Urine (UA) Negative (Negative); Ketones,Urine 5 mg/dL (Negative); Mucus,Urine Occasional /LPF (Occasional); Nitrite,Urine Negative (Negative); Protein,Urine >=500 MG/DL; Squamous Epithelial Cell,Urine Occasional /HPF (0-10); Urine Color Yellow (Yellow); Urine Specific Gravity 1.014 (1.001-1.035); Urine Urobilinogen < 2.0 EU/DL (0.2-1.0); WBC,Urine 4 /HPF (0-6)
[2019-04-13] MEDS ORDERED: SODIUM CHLORIDE 0.9% 250 ML IV ONE (16:07)
[2019-04-13 17:21] LABS: Myeloperoxidase Antibody < 0.2 U
[2019-04-14 05:32] LABS: Basophils % 0.3 % (0.0-0.8); Eosinophils % 0.2 % (0.00-10.9); Hematocrit 26.9 VOL% (35.7-47.0); Hemoglobin 8.1 GM/DL (12.0-16.0); Immature Granulocytes % 2.3 %; Immature Granulocytes Absolute 0.27 #; Lymphocytes # 1.4 10*3/uL (1.4-4.0); Lymphocytes % 12.5 % (21.3-54.2); Mean Corpuscular HGB Conc 30.1 GM/DL (32-36); Mean Corpuscular Volume 90.9 FL (87-102); Mean Platelet Volume 11.2 FL (9.6-12.0); NRBC # 0.07 10*3/uL; Neutrophils % 75.7 % (38.7-73.9); Platelet Count 326 T/CUMM (130-400); Red Blood Count 2.96 MC/CUMM (3.8-5.5); White Blood Count 11.5 T/CUMM (4-12)
[2019-04-14 05:46] LABS: Calcium 8.7 MG/DL (8.5-10.1); Osmolality,Calculated 313.1 MOS/KG (273-304)
[2019-04-14] MEDS: ALBUTEROL 2.5 MG/3 ML NEB RESP TX SCH ×4 (07:10→19:24)
[2019-04-14] MEDS ORDERED: FUROSEMIDE 40 MG/4 ML VIAL IV ONE (10:00)
[2019-04-14] MEDS ORDERED: PROPOFOL 200 MG/20 ML VIAL IV ONE (10:00)
[2019-04-14] MEDS ORDERED: LIDOCAINE 2% 5 ML VIAL ONE (10:00)
[2019-04-14] MEDS: INSULIN NPH/REGULAR 70/30 100 UNIT/ML SUBCUT SCH ×2 (11:04→19:03)
[2019-04-14] MEDS: INSULIN REGULAR 100 UNIT/ML SUBCUT SCH ×4 (11:04→21:50)
[2019-04-14] MEDS ORDERED: KETAMINE 500 MG/10 ML VIAL ONE (13:02)
[2019-04-14] MEDS: DULoxetine 30 MG CAPSULE PO SCH (13:55)
[2019-04-14] MEDS: amLODIPine 5 MG TABLET PO SCH (13:56)
[2019-04-14] MEDS: ATORVASTATIN 40 MG TABLET PO SCH (13:56)
[2019-04-14] MEDS: ASCORBIC ACID 500 MG TABLET PO SCH (13:56)
[2019-04-14] MEDS: MULTIVITAMIN (CENTRUM) TABLET PO SCH (13:56)
[2019-04-14] MEDS: GABAPENTIN 600 MG TABLET PO SCH (13:57)
[2019-04-14] MEDS: POLYETHYLENE GLYCOL POWDER 17 GM PACK PO SCH (13:57)
[2019-04-14] MEDS: PANTOPRAZOLE 40 MG VIAL IV SCH (13:59)
[2019-04-14] MEDS: SODIUM BICARB INJ 100 MEQ in SODIUM CHLORIDE 0.45% 1,000 ML IV SCH (13:59)
[2019-04-14] MEDS: SODIUM CHLORIDE 0.9% 1,000 ML IV SCH (14:47)
[2019-04-14] MEDS: ALBUMIN 25% 25 GM in PREMIX 1 EACH IV SCH (15:53)
[2019-04-14] MEDS: SKIN HEALING OINT (AQUAPHOR) 50 GM TUBE TOP SCH (16:08)
[2019-04-14] MEDS: FUROSEMIDE 100 MG/10 ML VIAL IV SCH (17:05)
[2019-04-14] MEDS: ALBUTEROL 2.5 MG/3 ML NEB RESP TX PRN (17:55)
[2019-04-15] MEDS: ALBUMIN 25% 25 GM in PREMIX 1 EACH IV SCH (00:41)
[2019-04-15] MEDS: SODIUM BICARB INJ 100 MEQ in SODIUM CHLORIDE 0.45% 1,000 ML IV SCH (00:47)
[2019-04-15] MEDS: MORPHINE 4 MG/1 ML VIAL IV PRN ×2 (01:48→16:47)
[2019-04-15] MEDS: FUROSEMIDE 100 MG/10 ML VIAL IV SCH (01:48)
[2019-04-15 06:40] LABS: Basophils % 0.4 % (0.0-0.8); Eosinophils # 0.1 10*3/uL (0.0-0.87); Eosinophils % 0.5 % (0.00-10.9); Hematocrit 26.3 VOL% (35.7-47.0); Immature Granulocytes % 3.5 %; Immature Granulocytes Absolute 0.38 #; Lymphocytes # 1.5 10*3/uL (1.4-4.0); Mean Corpuscular HGB Conc 30.4 GM/DL (32-36); Mean Corpuscular Volume 91.3 FL (87-102); Mean Platelet Volume 10.4 FL (9.6-12.0); Monocytes % 9.8 % (1.7-12.7); NRBC # 0.05 10*3/uL; Neutrophils % 71.8 % (38.7-73.9); Platelet Count 269 T/CUMM (130-400); Red Blood Count 2.88 MC/CUMM (3.8-5.5); Red Cell Distribution Width 17.1 % (9.3-17.3); White Blood Count 10.9 T/CUMM (4-12)
[2019-04-15 07:05] LABS: Calcium 8.4 MG/DL (8.5-10.1); Osmolality,Calculated 310.4 MOS/KG (273-304)
[2019-04-15] MEDS: ALBUTEROL 2.5 MG/3 ML NEB RESP TX SCH ×4 (07:06→20:20)
[2019-04-15] MEDS: INSULIN NPH/REGULAR 70/30 100 UNIT/ML SUBCUT SCH (07:33)
[2019-04-15] MEDS: INSULIN REGULAR 100 UNIT/ML SUBCUT SCH ×4 (07:33→21:32)
[2019-04-15] MEDS: MULTIVITAMIN (CENTRUM) TABLET PO SCH (10:05)
[2019-04-15] MEDS: DULoxetine 30 MG CAPSULE PO SCH (10:05)
[2019-04-15] MEDS: amLODIPine 5 MG TABLET PO SCH (10:06)
[2019-04-15] MEDS: ATORVASTATIN 40 MG TABLET PO SCH (10:06)
[2019-04-15] MEDS: POLYETHYLENE GLYCOL POWDER 17 GM PACK PO SCH (10:07)
[2019-04-15] MEDS: PANTOPRAZOLE 40 MG VIAL IV SCH (10:07)
[2019-04-15] MEDS: ASCORBIC ACID 500 MG TABLET PO SCH (10:07)
[2019-04-15] MEDS: SKIN HEALING OINT (AQUAPHOR) 50 GM TUBE TOP SCH (12:18)
[2019-04-15] MEDS: methylPREDNISolone SOD SUC 40 MG/1 ML VIAL IV SCH ×2 (12:50→21:31)
[2019-04-15] MEDS: metOLazone 5 MG TABLET PO SCH (19:49)
[2019-04-16] MEDS: FUROSEMIDE 40 MG/4 ML VIAL IV SCH ×3 (00:11→17:22)
[2019-04-16] MEDS: methylPREDNISolone SOD SUC 40 MG/1 ML VIAL IV SCH ×3 (05:23→20:32)
[2019-04-16 06:14] LABS: Basophils % 0.2 % (0.0-0.8); Hematocrit 28.5 VOL% (35.7-47.0); Hemoglobin 8.5 GM/DL (12.0-16.0); Immature Granulocytes % 3.4 %; Immature Granulocytes Absolute 0.37 #; Lymphocytes # 0.8 10*3/uL (1.4-4.0); Lymphocytes % 7.3 % (21.3-54.2); Mean Corpuscular HGB Conc 29.8 GM/DL (32-36); Mean Corpuscular Volume 91.3 FL (87-102); Mean Platelet Volume 11.1 FL (9.6-12.0); Monocytes % 3.2 % (1.7-12.7); NRBC # 0.06 10*3/uL; Neutrophils % 85.9 % (38.7-73.9); Platelet Count 296 T/CUMM (130-400); Red Blood Count 3.12 MC/CUMM (3.8-5.5); Red Cell Distribution Width 17.3 % (9.3-17.3)
[2019-04-16 06:36] LABS: Calcium 9.3 MG/DL (8.5-10.1)
[2019-04-16] MEDS ORDERED: MIDAZOLAM 2 MG/2 ML VIAL ONE ×2 (07:08→15:42)
[2019-04-16] MEDS: INSULIN REGULAR 100 UNIT/ML SUBCUT SCH ×3 (07:10→18:01)
[2019-04-16] MEDS: ALBUTEROL 2.5 MG/3 ML NEB RESP TX SCH ×4 (07:18→19:24)
[2019-04-16] MEDS ORDERED: LIDOCAINE 1% 20 ML VIAL MISC INJ ONE (07:30)
[2019-04-16] MEDS ORDERED: MIDAZOLAM 2 MG/2 ML VIAL IV ONE (07:30)
[2019-04-16] MEDS ORDERED: LIDOCAINE 2% VISCOUS 100 ML BOTTLE SWISH/SPIT ONE (07:30)
[2019-04-16] MEDS ORDERED: LIDOCAINE 2% 20 ML VIAL RESP TX ONE (07:30)
[2019-04-16] MEDS: SKIN HEALING OINT (AQUAPHOR) 50 GM TUBE TOP SCH (09:34)
[2019-04-16] MEDS: PANTOPRAZOLE 40 MG VIAL IV SCH (09:34)
[2019-04-16] MEDS ORDERED: CLINDAMYCIN INJ 900 MG in PREMIX 1 EACH IV ONE (10:30)
[2019-04-16] MEDS ORDERED: HEPARIN 5,000 UNIT/1 ML VIAL ONE (13:21)
[2019-04-16] MEDS ORDERED: LIDOCAINE 1%/EPI INJ 20 ML VIAL ONE (13:21)
[2019-04-16] MEDS ORDERED: BUPIVACAINE MPF 0.25% 30 ML VIAL ONE (13:21)
[2019-04-16 13:41] LABS: Hepatitis B Surface Ag Quant < 0.10 Index; Hepatitis B Surface Ag Result Negative (Negative)
[2019-04-16] MEDS ORDERED: SODIUM CHLORIDE 0.9% 250 ML IV SCH (14:30)
[2019-04-16] MEDS ORDERED: KETAMINE 500 MG/10 ML VIAL ONE (15:42)
[2019-04-16] MEDS: MORPHINE 4 MG/1 ML VIAL IV PRN (20:35)
[2019-04-17] MEDS: INSULIN REGULAR 100 UNIT/ML SUBCUT SCH ×4 (01:29→18:16)
[2019-04-17] MEDS: methylPREDNISolone SOD SUC 40 MG/1 ML VIAL IV SCH (04:59)
[2019-04-17 05:51] LABS: Basophils % 0.1 % (0.0-0.8); Hematocrit 25.5 VOL% (35.7-47.0); Hemoglobin 7.8 GM/DL (12.0-16.0); Immature Granulocytes % 0.9 %; Immature Granulocytes Absolute 0.11 #; Lymphocytes # 0.9 10*3/uL (1.4-4.0); Lymphocytes % 7.8 % (21.3-54.2); Mean Corpuscular HGB Conc 30.6 GM/DL (32-36); Mean Corpuscular Volume 89.5 FL (87-102); Mean Platelet Volume 11.2 FL (9.6-12.0); Monocytes % 7.1 % (1.7-12.7); NRBC # 0.06 10*3/uL; Neutrophils % 84.1 % (38.7-73.9); Platelet Count 264 T/CUMM (130-400); Red Blood Count 2.85 MC/CUMM (3.8-5.5); Red Cell Distribution Width 17.1 % (9.3-17.3); White Blood Count 11.9 T/CUMM (4-12)
[2019-04-17 06:05] LABS: Calcium 8.5 MG/DL (8.5-10.1); Osmolality,Calculated 300.4 MOS/KG (273-304)
[2019-04-17] MEDS: metOLazone 5 MG TABLET PO SCH ×2 (07:05→11:45)
[2019-04-17] MEDS: amLODIPine 5 MG TABLET PO SCH ×2 (07:05→11:46)
[2019-04-17] MEDS: POLYETHYLENE GLYCOL POWDER 17 GM PACK PO SCH ×2 (07:05→14:12)
[2019-04-17] MEDS: ASCORBIC ACID 500 MG TABLET PO SCH ×2 (07:05→14:13)
[2019-04-17] MEDS: MULTIVITAMIN (CENTRUM) TABLET PO SCH ×2 (07:05→14:12)
[2019-04-17] MEDS: ATORVASTATIN 40 MG TABLET PO SCH ×2 (07:05→11:45)
[2019-04-17] MEDS: ALBUTEROL 2.5 MG/3 ML NEB RESP TX SCH ×4 (08:28→19:17)
[2019-04-17] MEDS: PANTOPRAZOLE 40 MG VIAL IV SCH (08:38)
[2019-04-17] MEDS: FUROSEMIDE 40 MG/4 ML VIAL IV SCH (08:38)
[2019-04-17] MEDS: ONDANSETRON 4 MG/2 ML VIAL IV PRN (11:30)
[2019-04-17] MEDS ORDERED: hydrALAZINE 20 MG/1 ML VIAL IV PRN (11:35)
[2019-04-17] MEDS: DOCUSATE SODIUM 100 MG CAPSULE PO SCH (14:13)
[2019-04-17] MEDS: SKIN HEALING OINT (AQUAPHOR) 50 GM TUBE TOP SCH (14:13)
[2019-04-17] MEDS: amLODIPine 10 MG TABLET NG SCH (14:16)
[2019-04-17] MEDS: LEVOFLOXACIN INJ 750 MG in PREMIX 1 EACH IV SCH (18:11)
[2019-04-17] MEDS ORDERED: VANCOMYCIN INJ 1,750 MG in SODIUM CHLORIDE 0.9% 500 ML IV ONE (20:00)
[2019-04-18] MEDS: INSULIN REGULAR 100 UNIT/ML SUBCUT SCH ×4 (00:40→18:16)
[2019-04-18] MEDS: ALBUTEROL 2.5 MG/3 ML NEB RESP TX SCH ×4 (07:14→21:22)
[2019-04-18] MEDS: PANTOPRAZOLE 40 MG VIAL IV SCH (10:21)
[2019-04-18] MEDS: methylPREDNISolone SOD SUC 40 MG/1 ML VIAL IV SCH (10:22)
[2019-04-18] MEDS: POLYETHYLENE GLYCOL POWDER 17 GM PACK PO SCH (10:22)
[2019-04-18] MEDS: ATORVASTATIN 80 MG TABLET NG SCH (10:22)
[2019-04-18] MEDS: MULTIVITAMIN (CENTRUM) TABLET PO SCH (10:22)
[2019-04-18] MEDS: SKIN HEALING OINT (AQUAPHOR) 50 GM TUBE TOP SCH (10:23)
[2019-04-18] MEDS: amLODIPine 10 MG TABLET NG SCH (10:23)
[2019-04-18] MEDS: ASCORBIC ACID 500 MG TABLET PO SCH (10:23)
[2019-04-18] MEDS: DOCUSATE SODIUM 100 MG CAPSULE PO SCH (10:23)
[2019-04-18] MEDS: ONDANSETRON 4 MG/2 ML VIAL IV PRN (12:06)
[2019-04-19] MEDS: INSULIN REGULAR 100 UNIT/ML SUBCUT SCH ×4 (00:15→18:18)
[2019-04-19 06:11] LABS: Basophils % 0.1 % (0.0-0.8); Eosinophils # 0.1 10*3/uL (0.0-0.87); Eosinophils % 0.4 % (0.00-10.9); Hematocrit 29.1 VOL% (35.7-47.0); Hemoglobin 8.9 GM/DL (12.0-16.0); Immature Granulocytes % 0.8 %; Immature Granulocytes Absolute 0.11 #; Lymphocytes # 1.5 10*3/uL (1.4-4.0); Lymphocytes % 10.9 % (21.3-54.2); Mean Corpuscular HGB Conc 30.6 GM/DL (32-36); Mean Platelet Volume 11.2 FL (9.6-12.0); Monocytes % 10.7 % (1.7-12.7); Neutrophils % 77.1 % (38.7-73.9); Platelet Count 263 T/CUMM (130-400); Red Blood Count 3.27 MC/CUMM (3.8-5.5); Red Cell Distribution Width 16.6 % (9.3-17.3); White Blood Count 14.2 T/CUMM (4-12)
[2019-04-19 06:29] LABS: Albumin 2.7 G/DL (3.4-5.0); Bilirubin,Total 1.4 MG/DL (0.2-1.0); Calcium 8.5 MG/DL (8.5-10.1); Osmolality,Calculated 295.3 MOS/KG (273-304); Total Protein 6.5 G/DL (6.4-8.3)
[2019-04-19] MEDS: ALBUTEROL 2.5 MG/3 ML NEB RESP TX SCH ×4 (07:07→19:12)
[2019-04-19] MEDS: MULTIVITAMIN (CENTRUM) TABLET PO SCH (08:49)
[2019-04-19] MEDS: POLYETHYLENE GLYCOL POWDER 17 GM PACK PO SCH (08:49)
[2019-04-19] MEDS: ASCORBIC ACID 500 MG TABLET PO SCH (08:50)
[2019-04-19] MEDS: amLODIPine 10 MG TABLET NG SCH (08:50)
[2019-04-19] MEDS: DOCUSATE SODIUM 100 MG CAPSULE PO SCH (08:50)
[2019-04-19] MEDS: ATORVASTATIN 80 MG TABLET NG SCH (08:50)
[2019-04-19] MEDS: PANTOPRAZOLE 40 MG VIAL IV SCH (08:52)
[2019-04-19] MEDS: methylPREDNISolone SOD SUC 40 MG/1 ML VIAL IV SCH (08:53)
[2019-04-19] MEDS: SKIN HEALING OINT (AQUAPHOR) 50 GM TUBE TOP SCH (08:54)
[2019-04-19] MEDS: ONDANSETRON 4 MG/2 ML VIAL IV PRN (12:55)
[2019-04-19] MEDS ORDERED: HEPARIN 10,000 UNIT/10 ML VIAL IV SCH (13:30)
[2019-04-19] MEDS: POTASSIUM CHLORIDE 20 MEQ TABLET PO PRN ×4 (14:37→22:05)
[2019-04-19] MEDS ORDERED: VANCOMYCIN INJ 750 MG in SODIUM CHLORIDE 0.9% 250 ML IV PRN (17:00)
[2019-04-19] MEDS ORDERED: VANCOMYCIN INJ 750 MG in SODIUM CHLORIDE 0.9% 250 ML IV ONE (17:00)
[2019-04-19] MEDS: LEVOFLOXACIN INJ 750 MG in PREMIX 1 EACH IV SCH (17:29)
[2019-04-19] MEDS: ZINC OXIDE PASTE 113 GM TUBE TOP SCH (22:12)
[2019-04-20] MEDS: ONDANSETRON 4 MG/2 ML VIAL IV PRN ×3 (02:10→21:00)
[2019-04-20] MEDS: INSULIN REGULAR 100 UNIT/ML SUBCUT SCH ×4 (03:06→19:49)
[2019-04-20] MEDS: ALBUTEROL 2.5 MG/3 ML NEB RESP TX SCH ×4 (06:52→20:00)
[2019-04-20 08:17] LABS: Basophils % 0.1 % (0.0-0.8); Eosinophils # 0.1 10*3/uL (0.0-0.87); Eosinophils % 0.5 % (0.00-10.9); Hematocrit 29.3 VOL% (35.7-47.0); Hemoglobin 9.2 GM/DL (12.0-16.0); Immature Granulocytes % 0.6 %; Lymphocytes # 2.1 10*3/uL (1.4-4.0); Lymphocytes % 12.6 % (21.3-54.2); Mean Corpuscular HGB Conc 31.4 GM/DL (32-36); Mean Corpuscular Volume 87.2 FL (87-102); Mean Platelet Volume 10.9 FL (9.6-12.0); Monocytes % 10.1 % (1.7-12.7); NRBC # 0.02 10*3/uL; Neutrophils % 76.1 % (38.7-73.9); Platelet Count 247 T/CUMM (130-400); Red Blood Count 3.36 MC/CUMM (3.8-5.5); Red Cell Distribution Width 16.8 % (9.3-17.3); White Blood Count 16.6 T/CUMM (4-12)
[2019-04-20 08:53] LABS: Calcium 8.8 MG/DL (8.5-10.1); Osmolality,Calculated 279.7 MOS/KG (273-304)
[2019-04-20] MEDS: ZINC OXIDE PASTE 113 GM TUBE TOP SCH ×2 (09:19→21:57)
[2019-04-20] MEDS: MULTIVITAMIN (CENTRUM) TABLET PO SCH (09:19)
[2019-04-20] MEDS: PANTOPRAZOLE 40 MG VIAL IV SCH (09:19)
[2019-04-20] MEDS: ATORVASTATIN 80 MG TABLET NG SCH (09:19)
[2019-04-20] MEDS: POLYETHYLENE GLYCOL POWDER 17 GM PACK PO SCH (09:20)
[2019-04-20] MEDS: ASCORBIC ACID 500 MG TABLET PO SCH (09:20)
[2019-04-20] MEDS: amLODIPine 10 MG TABLET NG SCH (09:20)
[2019-04-20] MEDS: DOCUSATE SODIUM 100 MG CAPSULE PO SCH (09:20)
[2019-04-20] MEDS: SKIN HEALING OINT (AQUAPHOR) 50 GM TUBE TOP SCH (09:20)
[2019-04-21] MEDS: INSULIN REGULAR 100 UNIT/ML SUBCUT SCH ×4 (01:58→18:54)
[2019-04-21 02:18] LABS: Basophils % 0.2 % (0.0-0.8); Eosinophils # 0.2 10*3/uL (0.0-0.87); Eosinophils % 1.3 % (0.00-10.9); Hematocrit 27.4 VOL% (35.7-47.0); Hemoglobin 8.3 GM/DL (12.0-16.0); Immature Granulocytes % 0.5 %; Immature Granulocytes Absolute 0.06 #; Lymphocytes # 1.8 10*3/uL (1.4-4.0); Lymphocytes % 13.4 % (21.3-54.2); Mean Corpuscular HGB Conc 30.3 GM/DL (32-36); Mean Corpuscular Volume 89.3 FL (87-102); Mean Platelet Volume 10.9 FL (9.6-12.0); Monocytes % 9.7 % (1.7-12.7); Neutrophils % 74.9 % (38.7-73.9); Platelet Count 248 T/CUMM (130-400); Red Blood Count 3.07 MC/CUMM (3.8-5.5); White Blood Count 13.3 T/CUMM (4-12)
[2019-04-21 02:36] LABS: Calcium 8.7 MG/DL (8.5-10.1); Osmolality,Calculated 282.5 MOS/KG (273-304)
[2019-04-21] MEDS: ALBUTEROL 2.5 MG/3 ML NEB RESP TX PRN (03:23)
[2019-04-21] MEDS: ALBUTEROL 2.5 MG/3 ML NEB RESP TX SCH ×4 (07:04→19:35)
[2019-04-21] MEDS: MULTIVITAMIN (CENTRUM) TABLET PO SCH (08:56)
[2019-04-21] MEDS: ASCORBIC ACID 500 MG TABLET PO SCH (08:57)
[2019-04-21] MEDS: DOCUSATE SODIUM 100 MG CAPSULE PO SCH (08:57)
[2019-04-21] MEDS: ATORVASTATIN 80 MG TABLET NG SCH (08:57)
[2019-04-21] MEDS: amLODIPine 10 MG TABLET NG SCH (08:57)
[2019-04-21] MEDS: ZINC OXIDE PASTE 113 GM TUBE TOP SCH ×2 (08:58→21:21)
[2019-04-21] MEDS: PANTOPRAZOLE 40 MG VIAL IV SCH (08:58)
[2019-04-21] MEDS: SKIN HEALING OINT (AQUAPHOR) 50 GM TUBE TOP SCH (08:58)
[2019-04-21] MEDS: POLYETHYLENE GLYCOL POWDER 17 GM PACK PO SCH (08:58)
[2019-04-22] MEDS ORDERED: MORPHINE 4 MG/1 ML VIAL IV PRN (01:46)
[2019-04-22] MEDS: INSULIN REGULAR 100 UNIT/ML SUBCUT SCH ×4 (01:47→17:00)
[2019-04-22 05:09] LABS: Basophils % 0.1 % (0.0-0.8); Eosinophils # 0.2 10*3/uL (0.0-0.87); Eosinophils % 1.2 % (0.00-10.9); Hematocrit 28.8 VOL% (35.7-47.0); Immature Granulocytes % 0.6 %; Immature Granulocytes Absolute 0.08 #; Lymphocytes # 1.8 10*3/uL (1.4-4.0); Lymphocytes % 13.5 % (21.3-54.2); Mean Corpuscular HGB Conc 31.3 GM/DL (32-36); Mean Corpuscular Volume 87.8 FL (87-102); Monocytes % 9.6 % (1.7-12.7); Platelet Count 226 T/CUMM (130-400); Red Blood Count 3.28 MC/CUMM (3.8-5.5); White Blood Count 13.4 T/CUMM (4-12)
[2019-04-22 05:31] LABS: Calcium 8.2 MG/DL (8.5-10.1); Osmolality,Calculated 278.4 MOS/KG (273-304)
[2019-04-22 05:36] LABS: Prealbumin 15.4 MG/DL (20-40)
[2019-04-22] MEDS: ALBUTEROL 2.5 MG/3 ML NEB RESP TX SCH ×4 (06:46→20:03)
[2019-04-22] MEDS: PANTOPRAZOLE 40 MG VIAL IV SCH (10:15)
[2019-04-22] MEDS: SKIN HEALING OINT (AQUAPHOR) 50 GM TUBE TOP SCH (10:17)
[2019-04-22] MEDS: ZINC OXIDE PASTE 113 GM TUBE TOP SCH ×2 (10:17→20:25)
[2019-04-22] MEDS: amLODIPine 10 MG TABLET NG SCH (10:19)
[2019-04-22] MEDS: MULTIVITAMIN (CENTRUM) TABLET PO SCH (10:25)
[2019-04-22] MEDS: POLYETHYLENE GLYCOL POWDER 17 GM PACK PO SCH (10:25)
[2019-04-22] MEDS: DOCUSATE SODIUM 100 MG CAPSULE PO SCH (10:26)
[2019-04-22] MEDS: ASCORBIC ACID 500 MG TABLET PO SCH (10:31)
[2019-04-22] MEDS: ATORVASTATIN 80 MG TABLET NG SCH (10:31)
[2019-04-22] MEDS: METOPROLOL TARTRATE 25 MG TABLET PO SCH ×2 (16:05→20:24)
[2019-04-23] MEDS: INSULIN REGULAR 100 UNIT/ML SUBCUT SCH ×3 (04:07→13:23)
[2019-04-23 05:53] LABS: Basophils % 0.2 % (0.0-0.8); Eosinophils # 0.3 10*3/uL (0.0-0.87); Eosinophils % 1.9 % (0.00-10.9); Hematocrit 27.8 VOL% (35.7-47.0); Hemoglobin 8.6 GM/DL (12.0-16.0); Immature Granulocytes % 0.5 %; Immature Granulocytes Absolute 0.06 #; Lymphocytes # 1.8 10*3/uL (1.4-4.0); Mean Corpuscular HGB Conc 30.9 GM/DL (32-36); Mean Corpuscular Volume 87.4 FL (87-102); Mean Platelet Volume 11.3 FL (9.6-12.0); Monocytes % 11.7 % (1.7-12.7); Neutrophils % 71.7 % (38.7-73.9); Platelet Count 213 T/CUMM (130-400); Red Blood Count 3.18 MC/CUMM (3.8-5.5); Red Cell Distribution Width 16.8 % (9.3-17.3); White Blood Count 13.1 T/CUMM (4-12)
[2019-04-23 06:21] LABS: Calcium 8.5 MG/DL (8.5-10.1); Osmolality,Calculated 282.3 MOS/KG (273-304)
[2019-04-23] MEDS: ALBUTEROL 2.5 MG/3 ML NEB RESP TX SCH ×3 (07:10→15:54)
[2019-04-23] MEDS: amLODIPine 10 MG TABLET NG SCH (09:59)
[2019-04-23] MEDS: ASCORBIC ACID 500 MG TABLET PO SCH (10:00)
[2019-04-23] MEDS: ATORVASTATIN 80 MG TABLET NG SCH (10:00)
[2019-04-23] MEDS: PANTOPRAZOLE 40 MG VIAL IV SCH (10:00)
[2019-04-23] MEDS: METOPROLOL TARTRATE 25 MG TABLET PO SCH (10:00)
[2019-04-23] MEDS: MULTIVITAMIN (CENTRUM) TABLET PO SCH (10:00)
[2019-04-23] MEDS: DOCUSATE SODIUM 100 MG CAPSULE PO SCH (10:00)
[2019-04-23] MEDS: POLYETHYLENE GLYCOL POWDER 17 GM PACK PO SCH (10:00)
[2019-04-23] MEDS: ZINC OXIDE PASTE 113 GM TUBE TOP SCH (10:15)
[2019-04-23] MEDS: SKIN HEALING OINT (AQUAPHOR) 50 GM TUBE TOP SCH (10:15)
[2019-04-23 15:09] VITALS: BP 118/65
== END 2019-04-23 16:17 | DRG 377 ==
LOC: EDBD → EDUNIT# → N.ED 09:46 → N.EDINP 13:31 → SUATTDRO 13:31 → N.2E 14:00
PROVIDERS: ADMIT Internal Medicine Cardiovascular Disease; ATTEND Internal Medicine

== ENCOUNTER 2019-05-14 22:33 | Inpatient (IN) ==
[2019-05-14] MEDS ORDERED: LORazepam 2 MG/1 ML VIAL ONE (22:47)
[2019-05-14] MEDS ORDERED: LORazepam 2 MG/1 ML VIAL IV STA (22:49)
[2019-05-14] MEDS ORDERED: ACETAMINOPHEN 650 MG SUPP RECTAL STA (22:49)
[2019-05-14 23:00] LABS: Basophils # 0.1 10*3/uL (0.0-0.2); Basophils % 0.4 % (0.0-0.8); Eosinophils % 0.3 % (0.00-10.9); Hematocrit 27.5 VOL% (35.7-47.0); Hemoglobin 8.4 GM/DL (12.0-16.0); Immature Granulocytes % 0.7 %; Immature Granulocytes Absolute 0.08 #; Lymphocytes # 3.5 10*3/uL (1.4-4.0); Lymphocytes % 30.6 % (21.3-54.2); Mean Corpuscular HGB Conc 30.5 GM/DL (32-36); Mean Corpuscular Volume 88.4 FL (87-102); Mean Platelet Volume 10.9 FL (9.6-12.0); Monocytes % 8.4 % (1.7-12.7); Neutrophils % 59.6 % (38.7-73.9); Platelet Count 268 T/CUMM (130-400); Red Blood Count 3.11 MC/CUMM (3.8-5.5); Red Cell Distribution Width 18.1 % (9.3-17.3); White Blood Count 11.3 T/CUMM (4-12)
[2019-05-14 23:27] LABS: Alanine Aminotransferase 13 U/L (13-56); Albumin 2.9 G/DL (3.4-5.0); Alkaline Phosphatase 66 U/L (45-117); Aspartate Amino Transferase 15 U/L (0-37); Blood Urea Nitrogen 8 MG/DL (7-18); Calcium 9.2 MG/DL (8.5-10.1); Estimated Glom Filtration Rate 71 ML/MIN; Glucose 160 MG/DL (74-106); Osmolality,Calculated 275.7 MOS/KG (273-304); Total Protein 6.9 G/DL (6.4-8.3); Troponin I 0.031 NG/ML (0.00-0.045)
[2019-05-14] MEDS ORDERED: MAGNESIUM SULF RIDER 2 GM in PREMIX 1 EACH IV STA (23:51)
[2019-05-14] MEDS ORDERED: POTASSIUM CHLORIDE RIDER 20 MEQ in PREMIX 1 EACH IV STA (23:51)
[2019-05-14] MEDS ORDERED: POTASSIUM CHLORIDE RIDER 10 MEQ in PREMIX 1 EACH IV ONE (23:52)
[2019-05-15 00:18] LABS: PT Patient Result 10.7 SECS (9.6-12.2)
[2019-05-15] MEDS ORDERED: VANCOMYCIN INJ 1,000 MG in SODIUM CHLORIDE 0.9% 250 ML IV STA (00:27)
[2019-05-15] MEDS ORDERED: LACOSAMIDE INJ 100 MG in SODIUM CHLORIDE 0.9% 50 ML IV STA (00:28)
[2019-05-15] MEDS ORDERED: VANCOMYCIN INJ 1,500 MG in SODIUM CHLORIDE 0.9% 500 ML IV STA (00:36)
[2019-05-15] MEDS ORDERED: GLUCAGON 1 MG VIAL IM PRN (04:20)
[2019-05-15] MEDS ORDERED: hydrALAZINE 20 MG/1 ML VIAL IV PRN (04:20)
[2019-05-15] MEDS ORDERED: VANCOMYCIN INJ 750 MG in SODIUM CHLORIDE 0.9% 250 ML IV PRN (04:20)
[2019-05-15] MEDS ORDERED: DEXTROSE 50% 25 GM/50 ML VIAL IV PRN (04:20)
[2019-05-15] MEDS ORDERED: ONDANSETRON 4 MG/2 ML VIAL IV PRN (04:20)
[2019-05-15] MEDS ORDERED: CEFEPIME 1,000 MG in SODIUM CHLORIDE 0.9% 100 ML IV SCH (06:00)
[2019-05-15] MEDS: INSULIN LISPRO 100 UNIT/ML SUBCUT SCH ×3 (06:06→19:01)
[2019-05-15 07:34] LABS: Basophils # 0.1 10*3/uL (0.0-0.2); Basophils % 0.6 % (0.0-0.8); Eosinophils % 0.3 % (0.00-10.9); Hematocrit 27.4 VOL% (35.7-47.0); Hemoglobin 8.4 GM/DL (12.0-16.0); Immature Granulocytes % 0.7 %; Immature Granulocytes Absolute 0.08 #; Lymphocytes # 3.1 10*3/uL (1.4-4.0); Lymphocytes % 26.9 % (21.3-54.2); Mean Corpuscular HGB Conc 30.7 GM/DL (32-36); Mean Corpuscular Volume 89.5 FL (87-102); Mean Platelet Volume 10.4 FL (9.6-12.0); Monocytes % 10.5 % (1.7-12.7); Platelet Count 259 T/CUMM (130-400); Red Blood Count 3.06 MC/CUMM (3.8-5.5); Red Cell Distribution Width 18.3 % (9.3-17.3); White Blood Count 11.5 T/CUMM (4-12)
[2019-05-15 07:47] LABS: Calcium 9.1 MG/DL (8.5-10.1); Osmolality,Calculated 278.3 MOS/KG (273-304)
[2019-05-15] MEDS: PANTOPRAZOLE 40 MG VIAL IV SCH ×2 (09:06→20:55)
[2019-05-15] MEDS ORDERED: LORazepam 2 MG/1 ML VIAL IV PRN (10:15)
[2019-05-15] MEDS: ACETAMINOPHEN 325 MG TABLET PO PRN (16:19)
[2019-05-15] MEDS: CEFEPIME 1,000 MG in SODIUM CHLORIDE 0.9% 100 ML IV SCH (17:42)
[2019-05-16] MEDS: INSULIN LISPRO 100 UNIT/ML SUBCUT SCH ×4 (00:08→19:18)
[2019-05-16 04:32] LABS: Basophils # 0.1 10*3/uL (0.0-0.2); Basophils % 0.9 % (0.0-0.8); Eosinophils # 0.1 10*3/uL (0.0-0.87); Eosinophils % 1.3 % (0.00-10.9); Hematocrit 28.5 VOL% (35.7-47.0); Hemoglobin 8.5 GM/DL (12.0-16.0); Immature Granulocytes % 0.9 %; Lymphocytes # 2.6 10*3/uL (1.4-4.0); Lymphocytes % 24.6 % (21.3-54.2); Mean Corpuscular HGB Conc 29.8 GM/DL (32-36); Mean Corpuscular Volume 90.5 FL (87-102); Mean Platelet Volume 10.4 FL (9.6-12.0); Monocytes % 9.8 % (1.7-12.7); NRBC # 0.02 10*3/uL; Neutrophils % 62.5 % (38.7-73.9); Platelet Count 298 T/CUMM (130-400); Red Blood Count 3.15 MC/CUMM (3.8-5.5); Red Cell Distribution Width 18.2 % (9.3-17.3); White Blood Count 10.5 T/CUMM (4-12)
[2019-05-16 05:03] LABS: Calcium 9.3 MG/DL (8.5-10.1); Osmolality,Calculated 286.7 MOS/KG (273-304)
[2019-05-16] MEDS ORDERED: DEXTROSE 10% 250 ML IV PRN (05:19)
[2019-05-16] MEDS: CEFEPIME 1,000 MG in SODIUM CHLORIDE 0.9% 100 ML IV SCH ×2 (05:48→17:23)
[2019-05-16] MEDS ORDERED: VANCOMYCIN INJ 1,000 MG in SODIUM CHLORIDE 0.9% 250 ML IV PRN (07:39)
[2019-05-16] MEDS: PANTOPRAZOLE 40 MG VIAL IV SCH ×2 (08:37→20:51)
[2019-05-16] MEDS ORDERED: VANCOMYCIN INJ 1,000 MG in SODIUM CHLORIDE 0.9% 250 ML IV ONE (09:00)
[2019-05-16] MEDS ORDERED: PHENYTOIN INJ 1,000 MG in SODIUM CHLORIDE 0.9% 100 ML IV ONE (15:35)
[2019-05-16] MEDS: ACETAMINOPHEN 325 MG TABLET PO PRN (17:22)
[2019-05-16] MEDS: PHENYTOIN ER 100 MG CAPSULE PO SCH (20:51)
[2019-05-16] MEDS: POTASSIUM CHLORIDE 20 MEQ TABLET PO PRN (22:06)
[2019-05-17] MEDS: INSULIN LISPRO 100 UNIT/ML SUBCUT SCH ×4 (00:01→18:52)
[2019-05-17] MEDS: POTASSIUM CHLORIDE 20 MEQ TABLET PO PRN ×3 (00:09→03:49)
[2019-05-17] MEDS: ACETAMINOPHEN 325 MG TABLET PO PRN ×4 (00:09→20:09)
[2019-05-17 05:20] LABS: Basophils # 0.1 10*3/uL (0.0-0.2); Basophils % 0.6 % (0.0-0.8); Eosinophils # 0.2 10*3/uL (0.0-0.87); Eosinophils % 1.7 % (0.00-10.9); Hematocrit 28.6 VOL% (35.7-47.0); Hemoglobin 8.7 GM/DL (12.0-16.0); Immature Granulocytes Absolute 0.11 #; Lymphocytes # 3.4 10*3/uL (1.4-4.0); Lymphocytes % 30.1 % (21.3-54.2); Mean Corpuscular HGB Conc 30.4 GM/DL (32-36); Mean Corpuscular Volume 91.4 FL (87-102); Mean Platelet Volume 10.6 FL (9.6-12.0); NRBC # 0.05 10*3/uL; Neutrophils % 56.6 % (38.7-73.9); Platelet Count 300 T/CUMM (130-400); Red Blood Count 3.13 MC/CUMM (3.8-5.5); Red Cell Distribution Width 18.5 % (9.3-17.3); White Blood Count 11.2 T/CUMM (4-12)
[2019-05-17] MEDS: CEFEPIME 1,000 MG in SODIUM CHLORIDE 0.9% 100 ML IV SCH ×2 (05:26→18:02)
[2019-05-17 05:48] LABS: Calcium 9.2 MG/DL (8.5-10.1); Osmolality,Calculated 293.4 MOS/KG (273-304)
[2019-05-17] MEDS: PHENYTOIN ER 100 MG CAPSULE PO SCH ×3 (10:00→17:12)
[2019-05-17] MEDS: PANTOPRAZOLE 40 MG VIAL IV SCH ×2 (10:01→20:13)
[2019-05-17] MEDS ORDERED: SKIN HEALING OINT (AQUAPHOR) 50 GM TUBE TOP PRN (14:16)
[2019-05-17] MEDS: POTASSIUM CHLORIDE RIDER 10 MEQ in PREMIX 1 EACH IV SCH ×4 (15:50→20:13)
[2019-05-17] MEDS: SKIN HEALING OINT (AQUAPHOR) 50 GM TUBE TOP SCH (15:50)
[2019-05-17] MEDS: PHENYTOIN 100 MG/2 ML VIAL IV SCH (18:09)
[2019-05-17] MEDS: COLLAGENASE OINT 30 GM TUBE TOP SCH (18:45)
[2019-05-18] MEDS: INSULIN LISPRO 100 UNIT/ML SUBCUT SCH ×3 (00:14→12:56)
[2019-05-18] MEDS: PHENYTOIN 100 MG/2 ML VIAL IV SCH ×3 (01:04→18:16)
[2019-05-18] MEDS: MORPHINE 4 MG/1 ML VIAL IV PRN ×2 (01:06→08:23)
[2019-05-18] MEDS: CEFEPIME 1,000 MG in SODIUM CHLORIDE 0.9% 100 ML IV SCH ×2 (05:39→18:07)
[2019-05-18 05:54] LABS: Basophils # 0.1 10*3/uL (0.0-0.2); Basophils % 0.9 % (0.0-0.8); Eosinophils # 0.2 10*3/uL (0.0-0.87); Eosinophils % 1.7 % (0.00-10.9); Hematocrit 33.4 VOL% (35.7-47.0); Immature Granulocytes % 0.7 %; Immature Granulocytes Absolute 0.09 #; Lymphocytes # 2.9 10*3/uL (1.4-4.0); Lymphocytes % 22.9 % (21.3-54.2); Mean Corpuscular HGB Conc 29.9 GM/DL (32-36); Mean Corpuscular Volume 92.3 FL (87-102); Mean Platelet Volume 10.5 FL (9.6-12.0); Monocytes % 9.1 % (1.7-12.7); NRBC # 0.05 10*3/uL; Neutrophils % 64.7 % (38.7-73.9); Platelet Count 351 T/CUMM (130-400); Red Blood Count 3.62 MC/CUMM (3.8-5.5); Red Cell Distribution Width 18.6 % (9.3-17.3); White Blood Count 12.6 T/CUMM (4-12)
[2019-05-18 06:16] LABS: Calcium 9.5 MG/DL (8.5-10.1); Osmolality,Calculated 295.3 MOS/KG (273-304)
[2019-05-18 06:28] LABS: Vitamin B12 > 2000 PG/ML (211-911)
[2019-05-18] MEDS: PANTOPRAZOLE 40 MG VIAL IV SCH ×2 (08:21→21:06)
[2019-05-18] MEDS: SKIN HEALING OINT (AQUAPHOR) 50 GM TUBE TOP SCH (09:00)
[2019-05-18] MEDS: COLLAGENASE OINT 30 GM TUBE TOP SCH (18:08)
[2019-05-19] MEDS: INSULIN LISPRO 100 UNIT/ML SUBCUT SCH ×5 (00:15→17:17)
[2019-05-19] MEDS: PHENYTOIN 100 MG/2 ML VIAL IV SCH ×3 (02:40→17:04)
[2019-05-19] MEDS: CEFEPIME 1,000 MG in SODIUM CHLORIDE 0.9% 100 ML IV SCH ×2 (05:45→17:04)
[2019-05-19 06:04] LABS: Calcium 9.4 MG/DL (8.5-10.1); Osmolality,Calculated 308.3 MOS/KG (273-304)
[2019-05-19] MEDS: SKIN HEALING OINT (AQUAPHOR) 50 GM TUBE TOP SCH (09:17)
[2019-05-19] MEDS: PANTOPRAZOLE 40 MG VIAL IV SCH ×2 (09:17→20:21)
[2019-05-19] MEDS: COLLAGENASE OINT 30 GM TUBE TOP SCH (09:17)
[2019-05-19] MEDS: DEXTROSE 5% 1,000 ML IV SCH (15:41)
[2019-05-20] MEDS: INSULIN LISPRO 100 UNIT/ML SUBCUT SCH ×4 (01:19→18:21)
[2019-05-20] MEDS: DEXTROSE 5% 1,000 ML IV SCH ×3 (02:06→16:15)
[2019-05-20] MEDS: PHENYTOIN 100 MG/2 ML VIAL IV SCH ×3 (02:28→16:16)
[2019-05-20 06:04] LABS: Calcium 9.1 MG/DL (8.5-10.1); Osmolality,Calculated 309.6 MOS/KG (273-304)
[2019-05-20] MEDS: CEFEPIME 1,000 MG in SODIUM CHLORIDE 0.9% 100 ML IV SCH (06:31)
[2019-05-20] MEDS ORDERED: DEXTROSE 10% 250 ML BAG IV PRN (08:18)
[2019-05-20] MEDS: SKIN HEALING OINT (AQUAPHOR) 50 GM TUBE TOP SCH (09:20)
[2019-05-20] MEDS: PANTOPRAZOLE 40 MG VIAL IV SCH ×2 (09:20→16:16)
[2019-05-20] MEDS: COLLAGENASE OINT 30 GM TUBE TOP SCH (09:21)
[2019-05-20] MEDS: levETIRAcetam LIQUID 100 MG/ML 30 ML/BOTTLE PER TUBE SCH (20:17)
[2019-05-20] MEDS: PHENYTOIN 100 MG/4 ML UDCUP PER TUBE SCH (20:18)
[2019-05-21] MEDS: INSULIN LISPRO 100 UNIT/ML SUBCUT SCH ×4 (00:15→18:13)
[2019-05-21] MEDS: DEXTROSE 5% 1,000 ML IV SCH ×3 (02:23→16:25)
[2019-05-21] MEDS: levETIRAcetam LIQUID 100 MG/ML 30 ML/BOTTLE PER TUBE SCH ×2 (09:37→20:21)
[2019-05-21] MEDS: PHENYTOIN 100 MG/4 ML UDCUP PER TUBE SCH ×3 (09:37→20:24)
[2019-05-21] MEDS: COLLAGENASE OINT 30 GM TUBE TOP SCH (09:45)
[2019-05-21] MEDS: SKIN HEALING OINT (AQUAPHOR) 50 GM TUBE TOP SCH (09:45)
[2019-05-21 17:26] LABS: Apearance,Urine CLOUDY (Clear); Bilirubin,Urine Negative (Negative); Blood, Urine Moderate mg/dL (Negative); Glucose,Urine (UA) Negative (Negative); Ketones,Urine 5 mg/dL (Negative); Mucus,Urine Occasional /LPF (Occasional); Nitrite,Urine Negative (Negative); Protein,Urine >=500 MG/DL; RBC,Urine 10 /HPF (0-4); Squamous Epithelial Cell,Urine Occasional /HPF (0-10); Urine Color Amber (Yellow); Urine Urobilinogen < 2.0 EU/DL (0.2-1.0)
[2019-05-21 22:50] LABS: Barbiturates Screen,Urine Negative (Negative); Benzodiazepines Screen,Urine Positive (Negative); Cannabinoid Screen,Urine Negative (Negative); Opiate Screen,Urine Positive (Negative); Phencyclidine Screen,Urine Negative (Negative)
[2019-05-22] MEDS: INSULIN LISPRO 100 UNIT/ML SUBCUT SCH ×4 (00:24→18:29)
[2019-05-22] MEDS: DEXTROSE 5% 1,000 ML IV SCH ×3 (02:09→22:22)
[2019-05-22 05:58] LABS: Calcium 8.9 MG/DL (8.5-10.1); Osmolality,Calculated 295.6 MOS/KG (273-304)
[2019-05-22] MEDS: PHENYTOIN 100 MG/4 ML UDCUP PER TUBE SCH ×3 (09:30→22:22)
[2019-05-22] MEDS: COLLAGENASE OINT 30 GM TUBE TOP SCH (09:30)
[2019-05-22] MEDS: levETIRAcetam LIQUID 100 MG/ML 30 ML/BOTTLE PER TUBE SCH ×2 (11:11→22:22)
[2019-05-22] MEDS: SKIN HEALING OINT (AQUAPHOR) 50 GM TUBE TOP SCH (11:12)
[2019-05-23] MEDS: INSULIN LISPRO 100 UNIT/ML SUBCUT SCH ×5 (00:19→23:51)
[2019-05-23] MEDS: levETIRAcetam LIQUID 100 MG/ML 30 ML/BOTTLE PER TUBE SCH ×2 (09:04→21:14)
[2019-05-23] MEDS: PHENYTOIN 100 MG/4 ML UDCUP PER TUBE SCH ×3 (09:04→21:13)
[2019-05-23] MEDS: COLLAGENASE OINT 30 GM TUBE TOP SCH (09:06)
[2019-05-23] MEDS: SKIN HEALING OINT (AQUAPHOR) 50 GM TUBE TOP SCH (09:06)
[2019-05-23] MEDS: DEXTROSE 5% 1,000 ML IV SCH ×2 (09:08→21:13)
[2019-05-24] MEDS: DEXTROSE 5% 1,000 ML IV SCH (04:40)
[2019-05-24] MEDS: INSULIN LISPRO 100 UNIT/ML SUBCUT SCH ×2 (05:45→11:56)
[2019-05-24 07:07] LABS: Basophils # 0.1 10*3/uL (0.0-0.2); Basophils % 0.4 % (0.0-0.8); Eosinophils # 0.4 10*3/uL (0.0-0.87); Eosinophils % 2.9 % (0.00-10.9); Hematocrit 31.7 VOL% (35.7-47.0); Hemoglobin 9.6 GM/DL (12.0-16.0); Immature Granulocytes % 0.4 %; Immature Granulocytes Absolute 0.05 #; Lymphocytes % 33.5 % (21.3-54.2); Mean Corpuscular HGB Conc 30.3 GM/DL (32-36); Mean Corpuscular Volume 91.6 FL (87-102); Mean Platelet Volume 11.4 FL (9.6-12.0); Monocytes % 9.3 % (1.7-12.7); Neutrophils % 53.5 % (38.7-73.9); Platelet Count 278 T/CUMM (130-400); Red Blood Count 3.46 MC/CUMM (3.8-5.5); Red Cell Distribution Width 19.5 % (9.3-17.3)
[2019-05-24 07:36] LABS: Albumin 2.4 G/DL (3.4-5.0); Calcium 8.3 MG/DL (8.5-10.1); Osmolality,Calculated 296.4 MOS/KG (273-304)
[2019-05-24] MEDS: SKIN HEALING OINT (AQUAPHOR) 50 GM TUBE TOP SCH (09:36)
[2019-05-24] MEDS: PHENYTOIN 100 MG/4 ML UDCUP PER TUBE SCH (09:36)
[2019-05-24] MEDS: levETIRAcetam LIQUID 100 MG/ML 30 ML/BOTTLE PER TUBE SCH (09:37)
[2019-05-24] MEDS: COLLAGENASE OINT 30 GM TUBE TOP SCH (09:37)
[2019-05-24 13:44] VITALS: BP 146/74
== END 2019-05-24 15:40 | DRG 101 ==
LOC: EDBD → EDUNIT# → N.ED 22:33 → N.EDINP 05-15 02:01 → SUATTDRO 05-15 02:01 → N.5E 05-15 03:41
PROVIDERS: ADMIT Internal Medicine; ATTEND Internal Medicine Nephrology

== ENCOUNTER 2019-07-03 09:29 | Inpatient (IN) ==
[2019-07-03] MEDS ORDERED: VANCOMYCIN INJ 1,000 MG in SODIUM CHLORIDE 0.9% 250 ML IV STA (09:54)
[2019-07-03] MEDS ORDERED: SODIUM CHLORIDE 0.9% 1,000 ML IV STA (09:54)
[2019-07-03 11:35] LABS: Basophils # 0.1 10*3/uL (0.0-0.2); Basophils % 0.2 % (0.0-0.8); Hemoglobin 7.5 GM/DL (12.0-16.0); Immature Granulocytes % 2.5 %; Immature Granulocytes Absolute 0.97 #; Lymphocytes # 0.9 10*3/uL (1.4-4.0); Lymphocytes % 2.3 % (21.3-54.2); Mean Corpuscular Volume 94.3 FL (87-102); Mean Platelet Volume 10.3 FL (9.6-12.0); Platelet Count 651 T/CUMM (130-400); Red Blood Count 2.65 MC/CUMM (3.8-5.5); Red Cell Distribution Width 18.6 % (9.3-17.3); White Blood Count 39.6 T/CUMM (4-12)
[2019-07-03 11:54] LABS: INR 1.1; Partial Thromboplastin Time 32.8 SECS (20.8-36.0)
[2019-07-03 11:57] LABS: Hypochromasia 1+; Lymphocytes 2 % (20-55); Platelet Estimate Increased; Segmented Neutrophils 95 % (50-85); Total Cells Counted 100
[2019-07-03 12:16] LABS: Alanine Aminotransferase < 9 U/L (13-56); Albumin 1.9 G/DL (3.4-5.0); Alkaline Phosphatase 140 U/L (45-117); Aspartate Amino Transferase 12 U/L (0-37); Bilirubin,Total < 0.39 MG/DL (0.2-1.0); Blood Urea Nitrogen 69 MG/DL (7-18); Calcium 9.1 MG/DL (8.5-10.1); Estimated Glom Filtration Rate 25 ML/MIN; Glucose 174 MG/DL (74-106); Osmolality,Calculated 302.4 MOS/KG (273-304); Troponin I < 0.015 NG/ML (0.00-0.045)
[2019-07-03] MEDS ORDERED: PROMETHAZINE 25 MG TABLET PO PRN (13:21)
[2019-07-03] MEDS ORDERED: ONDANSETRON 4 MG/2 ML VIAL IV PRN (13:21)
[2019-07-03] MEDS ORDERED: GLUCAGON 1 MG VIAL IM PRN (13:25)
[2019-07-03] MEDS ORDERED: DEXTROSE 10% 250 ML BAG IV PRN (13:25)
[2019-07-03] MEDS ORDERED: SODIUM CHLORIDE 0.9% 1,000 ML IV SCH (13:30)
[2019-07-03 13:56] LABS: Thyroid Stimulating Hormone 3.61 uIU/ml (0.358-3.74)
[2019-07-03] MEDS: ALBUTEROL 2.5 MG/3 ML NEB RESP TX SCH (14:36)
[2019-07-03] MEDS: metroNIDAZOLE INJ 500 MG in PREMIX 1 EACH IV SCH ×2 (17:05→23:40)
[2019-07-03] MEDS: PANTOPRAZOLE 40 MG TABLET PO SCH (17:06)
[2019-07-03] MEDS: CEFEPIME 1,000 MG in SODIUM CHLORIDE 0.9% 100 ML IV SCH (17:06)
[2019-07-03] MEDS: LACTATED RINGERS 1,000 ML IV SCH ×2 (17:07→23:41)
[2019-07-03] MEDS: INSULIN LISPRO 100 UNIT/ML SUBCUT SCH ×2 (18:27→21:39)
[2019-07-03] MEDS: QUEtiapine 100 MG TABLET PO SCH (21:17)
[2019-07-03] MEDS: ENOXAPARIN 30 MG/0.3 ML SYRINGE SUBCUT SCH (21:17)
[2019-07-03] MEDS: levETIRAcetam 500 MG TABLET PO SCH (21:17)
[2019-07-03] MEDS: FERROUS SULFATE 325 MG TABLET PO SCH (21:17)
[2019-07-03] MEDS: METOPROLOL TARTRATE 25 MG TABLET PO SCH (21:50)
[2019-07-03 21:52] LABS: Apearance,Urine CLOUDY (Clear); Bacteria,Urine Many /HPF (Few); Bilirubin,Urine Negative (Negative); Blood, Urine Negative (Negative); Glucose,Urine (UA) Negative (Negative); Ketones,Urine 5 mg/dL (Negative); Mucus,Urine Occasional /LPF (Occasional); Nitrite,Urine Negative (Negative); Protein,Urine 100 MG/DL; Squamous Epithelial Cell,Urine Occasional /HPF (0-10); Urine Color Amber (Yellow); Urine Specific Gravity 1.015 (1.001-1.035); Urine Urobilinogen < 2.0 EU/DL (0.2-1.0); WBC,Urine 473 /HPF (0-6)
[2019-07-04] MEDS: CEFEPIME 1,000 MG in SODIUM CHLORIDE 0.9% 100 ML IV SCH ×2 (02:36→14:32)
[2019-07-04 06:51] LABS: Basophils # 0.1 10*3/uL (0.0-0.2); Basophils % 0.2 % (0.0-0.8); Eosinophils # 0.1 10*3/uL (0.0-0.87); Eosinophils % 0.2 % (0.00-10.9); Hematocrit 25.6 VOL% (35.7-47.0); Hemoglobin 7.6 GM/DL (12.0-16.0); Immature Granulocytes % 1.4 %; Immature Granulocytes Absolute 0.52 #; Lymphocytes # 2.2 10*3/uL (1.4-4.0); Lymphocytes % 5.9 % (21.3-54.2); Mean Corpuscular HGB Conc 29.7 GM/DL (32-36); Mean Corpuscular Volume 94.1 FL (87-102); Mean Platelet Volume 10.5 FL (9.6-12.0); Monocytes % 5.9 % (1.7-12.7); Neutrophils % 86.4 % (38.7-73.9); Platelet Count 674 T/CUMM (130-400); Red Blood Count 2.72 MC/CUMM (3.8-5.5); Red Cell Distribution Width 19.1 % (9.3-17.3); White Blood Count 36.9 T/CUMM (4-12)
[2019-07-04 07:00] LABS: Alanine Aminotransferase < 9 U/L (13-56); Albumin 1.8 G/DL (3.4-5.0); Alkaline Phosphatase 123 U/L (45-117); Aspartate Amino Transferase 9 U/L (0-37); Bilirubin,Total < 0.39 MG/DL (0.2-1.0); Blood Urea Nitrogen 69 MG/DL (7-18); Calcium 9.1 MG/DL (8.5-10.1); Estimated Glom Filtration Rate 28 ML/MIN; Glucose 133 MG/DL (74-106); Total Protein 6.8 G/DL (6.4-8.3)
[2019-07-04 07:10] LABS: Lymphocytes 3 % (20-55); Platelet Estimate Increased; Segmented Neutrophils 93 % (50-85); Total Cells Counted 100
[2019-07-04] MEDS: ALBUTEROL 2.5 MG/3 ML NEB RESP TX SCH ×4 (08:00→21:23)
[2019-07-04] MEDS ORDERED: fentaNYL 100 MCG/2 ML VIAL ONE (08:30)
[2019-07-04] MEDS ORDERED: SEVOFLURANE 1 UNIT/15 MINUTE INH ONE (08:30)
[2019-07-04] MEDS ORDERED: propofoL 200 MG/20 ML VIAL IV ONE (08:30)
[2019-07-04] MEDS ORDERED: LIDOCAINE 2% 5 ML VIAL ONE (08:30)
[2019-07-04] MEDS ORDERED: PHENYLEPHRINE DRIP 20 MG/250 ML PREMIX IV ONE (08:30)
[2019-07-04] MEDS ORDERED: ONDANSETRON 4 MG/2 ML VIAL ONE (08:31)
[2019-07-04] MEDS ORDERED: PHENYLEPHRINE 1 MG/10 ML SYRINGE IV ONE (08:31)
[2019-07-04] MEDS ORDERED: ePHEDrine 50 MG/ML AMP ONE (08:31)
[2019-07-04] MEDS ORDERED: DEXAMETHASONE 4 MG/1 ML VIAL ONE (08:31)
[2019-07-04] MEDS ORDERED: SODIUM CHLORIDE 0.9% 1,000 ML IV ONE (08:31)
[2019-07-04] MEDS ORDERED: MIDAZOLAM 2 MG/2 ML VIAL ONE (08:39)
[2019-07-04] MEDS ORDERED: VANCOMYCIN INJ 1,000 MG in SODIUM CHLORIDE 0.9% 250 ML IV ONE (09:00)
[2019-07-04] MEDS: LACTATED RINGERS 1,000 ML IV SCH ×3 (09:39→23:07)
[2019-07-04] MEDS: metroNIDAZOLE INJ 500 MG in PREMIX 1 EACH IV SCH ×3 (09:42→23:08)
[2019-07-04] MEDS: INSULIN LISPRO 100 UNIT/ML SUBCUT SCH ×4 (09:43→21:00)
[2019-07-04] MEDS: POLYETHYLENE GLYCOL POWDER 17 GM PACK PO SCH (10:09)
[2019-07-04] MEDS: BISACODYL 5 MG TABLET PO SCH (10:10)
[2019-07-04] MEDS: METOPROLOL TARTRATE 25 MG TABLET PO SCH ×2 (10:10→20:59)
[2019-07-04] MEDS: PANTOPRAZOLE 40 MG TABLET PO SCH (10:10)
[2019-07-04] MEDS: FERROUS SULFATE 325 MG TABLET PO SCH ×2 (10:10→20:59)
[2019-07-04] MEDS: amLODIPine 10 MG TABLET PO SCH (10:10)
[2019-07-04] MEDS: DULoxetine 30 MG CAPSULE PO SCH (10:10)
[2019-07-04] MEDS: ATORVASTATIN 80 MG TABLET PO SCH (10:10)
[2019-07-04] MEDS: levETIRAcetam 500 MG TABLET PO SCH (10:12)
[2019-07-04] MEDS: MORPHINE 4 MG/1 ML VIAL IV PRN (11:48)
[2019-07-04] MEDS ORDERED: VANCOMYCIN INJ 1,000 MG in SODIUM CHLORIDE 0.9% 250 ML IV PRN (12:00)
[2019-07-04] MEDS ORDERED: SODIUM CHLORIDE 0.9% 1,000 ML IV PRN (13:46)
[2019-07-04] MEDS: QUEtiapine 100 MG TABLET PO SCH (20:59)
[2019-07-04] MEDS: ENOXAPARIN 30 MG/0.3 ML SYRINGE SUBCUT SCH (21:00)
[2019-07-05] MEDS: CEFEPIME 1,000 MG in SODIUM CHLORIDE 0.9% 100 ML IV SCH ×2 (04:02→14:45)
[2019-07-05 04:40] LABS: Basophils # 0.1 10*3/uL (0.0-0.2); Basophils % 0.2 % (0.0-0.8); Eosinophils % 0.1 % (0.00-10.9); Hematocrit 23.9 VOL% (35.7-47.0); Hemoglobin 7.3 GM/DL (12.0-16.0); Immature Granulocytes % 1.8 %; Immature Granulocytes Absolute 0.55 #; Lymphocytes # 2.2 10*3/uL (1.4-4.0); Lymphocytes % 6.9 % (21.3-54.2); Mean Corpuscular HGB Conc 30.5 GM/DL (32-36); Mean Corpuscular Volume 92.6 FL (87-102); Mean Platelet Volume 10.1 FL (9.6-12.0); Monocytes % 6.6 % (1.7-12.7); Neutrophils % 84.4 % (38.7-73.9); Platelet Count 592 T/CUMM (130-400); Red Blood Count 2.58 MC/CUMM (3.8-5.5); Red Cell Distribution Width 18.6 % (9.3-17.3); White Blood Count 31.3 T/CUMM (4-12)
[2019-07-05 05:08] LABS: Hypochromasia 1+
[2019-07-05 05:09] LABS: Burr Cells Slight; Microcytosis 1+; Ovalocytes Slight
[2019-07-05 05:10] LABS: Platelet Estimate Increased
[2019-07-05 05:13] LABS: Albumin 1.8 G/DL (3.4-5.0); Bilirubin,Total 1.3 MG/DL (0.2-1.0); Calcium 8.7 MG/DL (8.5-10.1); Osmolality,Calculated 308.7 MOS/KG (273-304); Total Protein 6.5 G/DL (6.4-8.3)
[2019-07-05] MEDS: ALBUTEROL 2.5 MG/3 ML NEB RESP TX SCH ×5 (06:51→19:08)
[2019-07-05] MEDS: MORPHINE 4 MG/1 ML VIAL IV PRN ×2 (08:09→12:03)
[2019-07-05] MEDS: INSULIN LISPRO 100 UNIT/ML SUBCUT SCH ×4 (08:32→20:14)
[2019-07-05] MEDS: LACTATED RINGERS 1,000 ML IV SCH ×2 (08:35→18:18)
[2019-07-05] MEDS: metroNIDAZOLE INJ 500 MG in PREMIX 1 EACH IV SCH ×2 (09:15→16:24)
[2019-07-05] MEDS: BISACODYL 5 MG TABLET PO SCH (09:31)
[2019-07-05] MEDS: FERROUS SULFATE 325 MG TABLET PO SCH ×2 (09:32→22:29)
[2019-07-05] MEDS: METOPROLOL TARTRATE 25 MG TABLET PO SCH ×2 (09:32→22:30)
[2019-07-05] MEDS: PANTOPRAZOLE 40 MG TABLET PO SCH (09:32)
[2019-07-05] MEDS: DULoxetine 30 MG CAPSULE PO SCH (09:33)
[2019-07-05] MEDS: amLODIPine 10 MG TABLET PO SCH (09:33)
[2019-07-05] MEDS: ATORVASTATIN 80 MG TABLET PO SCH (09:33)
[2019-07-05] MEDS: POLYETHYLENE GLYCOL POWDER 17 GM PACK PO SCH (09:41)
[2019-07-05] MEDS ORDERED: VANCOMYCIN INJ 1,000 MG in SODIUM CHLORIDE 0.9% 250 ML IV ONE (10:00)
[2019-07-05] MEDS: SODIUM HYPOCHLORITE 0.25% IRRIG 473 ML BOTTLE TOP SCH (11:24)
[2019-07-05] MEDS: SKIN HEALING OINT (AQUAPHOR) 50 GM TUBE TOP SCH (15:05)
[2019-07-05] MEDS: ENOXAPARIN 30 MG/0.3 ML SYRINGE SUBCUT SCH (22:30)
[2019-07-05] MEDS: QUEtiapine 100 MG TABLET PO SCH (22:30)
[2019-07-06] MEDS: metroNIDAZOLE INJ 500 MG in PREMIX 1 EACH IV SCH ×3 (00:30→16:56)
[2019-07-06] MEDS: CEFEPIME 1,000 MG in SODIUM CHLORIDE 0.9% 100 ML IV SCH ×2 (03:26→15:28)
[2019-07-06 05:07] LABS: Basophils # 0.1 10*3/uL (0.0-0.2); Basophils % 0.2 % (0.0-0.8); Eosinophils # 0.1 10*3/uL (0.0-0.87); Eosinophils % 0.3 % (0.00-10.9); Hematocrit 27.1 VOL% (35.7-47.0); Hemoglobin 8.3 GM/DL (12.0-16.0); Immature Granulocytes % 1.7 %; Immature Granulocytes Absolute 0.42 #; Lymphocytes # 2.1 10*3/uL (1.4-4.0); Lymphocytes % 8.2 % (21.3-54.2); Mean Corpuscular HGB Conc 30.6 GM/DL (32-36); Mean Corpuscular Volume 91.9 FL (87-102); Mean Platelet Volume 10.7 FL (9.6-12.0); Monocytes % 6.2 % (1.7-12.7); Neutrophils % 83.4 % (38.7-73.9); Platelet Count 585 T/CUMM (130-400); Red Blood Count 2.95 MC/CUMM (3.8-5.5); Red Cell Distribution Width 18.9 % (9.3-17.3); White Blood Count 25.2 T/CUMM (4-12)
[2019-07-06 05:28] LABS: Hypochromasia 1+; Lymphocytes 8 % (20-55); Platelet Estimate Adequate; Segmented Neutrophils 86 % (50-85); Total Cells Counted 100
[2019-07-06 05:29] LABS: Microcytosis 1+
[2019-07-06 05:38] LABS: Albumin 1.6 G/DL (3.4-5.0); Bilirubin,Total 1.2 MG/DL (0.2-1.0); Calcium 8.6 MG/DL (8.5-10.1); Osmolality,Calculated 308.6 MOS/KG (273-304); Total Protein 6.2 G/DL (6.4-8.3)
[2019-07-06] MEDS: LACTATED RINGERS 1,000 ML IV SCH ×2 (06:29→15:30)
[2019-07-06] MEDS: ALBUTEROL 2.5 MG/3 ML NEB RESP TX SCH ×4 (07:11→19:05)
[2019-07-06] MEDS: INSULIN LISPRO 100 UNIT/ML SUBCUT SCH ×4 (08:58→21:39)
[2019-07-06] MEDS: SODIUM HYPOCHLORITE 0.25% IRRIG 473 ML BOTTLE TOP SCH (10:39)
[2019-07-06] MEDS: BISACODYL 5 MG TABLET PO SCH (10:39)
[2019-07-06] MEDS: ATORVASTATIN 80 MG TABLET PO SCH (10:39)
[2019-07-06] MEDS: FERROUS SULFATE 325 MG TABLET PO SCH ×2 (10:39→21:38)
[2019-07-06] MEDS: SKIN HEALING OINT (AQUAPHOR) 50 GM TUBE TOP SCH (10:39)
[2019-07-06] MEDS: DULoxetine 30 MG CAPSULE PO SCH (10:39)
[2019-07-06] MEDS: amLODIPine 10 MG TABLET PO SCH (10:40)
[2019-07-06] MEDS: POLYETHYLENE GLYCOL POWDER 17 GM PACK PO SCH (10:40)
[2019-07-06] MEDS: PANTOPRAZOLE 40 MG TABLET PO SCH (10:40)
[2019-07-06] MEDS: METOPROLOL TARTRATE 25 MG TABLET PO SCH ×2 (10:40→21:38)
[2019-07-06] MEDS: MORPHINE 4 MG/1 ML VIAL IV PRN (13:32)
[2019-07-06] MEDS: QUEtiapine 100 MG TABLET PO SCH (21:38)
[2019-07-06] MEDS: ENOXAPARIN 30 MG/0.3 ML SYRINGE SUBCUT SCH (21:39)
[2019-07-07] MEDS: metroNIDAZOLE INJ 500 MG in PREMIX 1 EACH IV SCH ×2 (00:44→10:19)
[2019-07-07] MEDS: CEFEPIME 1,000 MG in SODIUM CHLORIDE 0.9% 100 ML IV SCH (02:34)
[2019-07-07 05:51] LABS: Basophils # 0.1 10*3/uL (0.0-0.2); Basophils % 0.3 % (0.0-0.8); Eosinophils # 0.2 10*3/uL (0.0-0.87); Eosinophils % 0.7 % (0.00-10.9); Hematocrit 27.1 VOL% (35.7-47.0); Hemoglobin 8.3 GM/DL (12.0-16.0); Immature Granulocytes % 2.5 %; Immature Granulocytes Absolute 0.62 #; Lymphocytes # 3.6 10*3/uL (1.4-4.0); Lymphocytes % 14.6 % (21.3-54.2); Mean Corpuscular HGB Conc 30.6 GM/DL (32-36); Mean Corpuscular Volume 90.6 FL (87-102); Mean Platelet Volume 10.4 FL (9.6-12.0); Monocytes % 7.2 % (1.7-12.7); Neutrophils % 74.7 % (38.7-73.9); Platelet Count 678 T/CUMM (130-400); Red Blood Count 2.99 MC/CUMM (3.8-5.5); Red Cell Distribution Width 19.2 % (9.3-17.3); White Blood Count 24.9 T/CUMM (4-12)
[2019-07-07] MEDS: LACTATED RINGERS 1,000 ML IV SCH ×3 (06:02→10:19)
[2019-07-07 06:21] LABS: Eosinophils 3 % (0-10); Lymphocytes 10 % (20-55); Segmented Neutrophils 82 % (50-85); Total Cells Counted 100
[2019-07-07 06:22] LABS: Acanthocytes Few; Hypochromasia 1+; Microcytosis 1+
[2019-07-07 06:23] LABS: Platelet Estimate Increased
[2019-07-07 06:27] LABS: Calcium 8.4 MG/DL (8.5-10.1); Osmolality,Calculated 319.1 MOS/KG (273-304)
[2019-07-07] MEDS: ALBUTEROL 2.5 MG/3 ML NEB RESP TX SCH ×4 (07:12→19:53)
[2019-07-07] MEDS ORDERED: MAGNESIUM SULF RIDER 4 GM in PREMIX 1 EACH IV PRN (09:01)
[2019-07-07] MEDS: METOPROLOL TARTRATE 25 MG TABLET PO SCH ×2 (10:03→20:27)
[2019-07-07] MEDS: amLODIPine 10 MG TABLET PO SCH (10:03)
[2019-07-07] MEDS: ATORVASTATIN 80 MG TABLET PO SCH (10:03)
[2019-07-07] MEDS: OMEPRAZOLE ODT 20 MG TABLET PO SCH (10:04)
[2019-07-07] MEDS: POLYETHYLENE GLYCOL POWDER 17 GM PACK PO SCH (10:04)
[2019-07-07] MEDS: DULoxetine 30 MG CAPSULE PO SCH (10:04)
[2019-07-07] MEDS: FERROUS SULFATE 300 MG/5 ML UDCUP PO SCH ×2 (10:04→20:26)
[2019-07-07] MEDS: BISACODYL 5 MG TABLET PO SCH (10:04)
[2019-07-07] MEDS: FERROUS SULFATE 325 MG TABLET PO SCH (10:19)
[2019-07-07] MEDS: PANTOPRAZOLE 40 MG TABLET PO SCH (10:19)
[2019-07-07] MEDS: INSULIN LISPRO 100 UNIT/ML SUBCUT SCH ×4 (10:20→21:52)
[2019-07-07] MEDS: SODIUM BICARB INJ 100 MEQ in DEXTROSE 5% 1,000 ML IV SCH ×2 (10:31→20:25)
[2019-07-07] MEDS: MEROPENEM 500 MG in SODIUM CHLORIDE 0.9% 100 ML IV SCH ×2 (10:32→21:57)
[2019-07-07] MEDS: SKIN HEALING OINT (AQUAPHOR) 50 GM TUBE TOP SCH (10:32)
[2019-07-07] MEDS: SODIUM HYPOCHLORITE 0.25% IRRIG 473 ML BOTTLE TOP SCH (10:32)
[2019-07-07] MEDS: MAGNESIUM SULF RIDER 2 GM in PREMIX 1 EACH IV PRN (15:21)
[2019-07-07] MEDS: levETIRAcetam 500 MG TABLET PO SCH (20:26)
[2019-07-07] MEDS: ENOXAPARIN 30 MG/0.3 ML SYRINGE SUBCUT SCH (20:26)
[2019-07-07] MEDS: QUEtiapine 100 MG TABLET PO SCH (20:28)
[2019-07-07] MEDS: MORPHINE 4 MG/1 ML VIAL IV PRN (21:54)
[2019-07-08 05:00] LABS: Basophils # 0.1 10*3/uL (0.0-0.2); Basophils % 0.3 % (0.0-0.8); Eosinophils # 0.3 10*3/uL (0.0-0.87); Eosinophils % 1.2 % (0.00-10.9); Hematocrit 23.8 VOL% (35.7-47.0); Hemoglobin 7.5 GM/DL (12.0-16.0); Immature Granulocytes Absolute 0.44 #; Lymphocytes # 2.5 10*3/uL (1.4-4.0); Lymphocytes % 11.5 % (21.3-54.2); Mean Corpuscular HGB Conc 31.5 GM/DL (32-36); Mean Corpuscular Volume 89.1 FL (87-102); Mean Platelet Volume 11.1 FL (9.6-12.0); Monocytes % 8.4 % (1.7-12.7); Neutrophils % 76.6 % (38.7-73.9); Platelet Count 485 T/CUMM (130-400); Red Blood Count 2.67 MC/CUMM (3.8-5.5); Red Cell Distribution Width 19.5 % (9.3-17.3); White Blood Count 21.6 T/CUMM (4-12)
[2019-07-08 05:48] LABS: Band Neutrophils 2 % (0-10); Eosinophils 1 % (0-10); Hypochromasia 1+; Lymphocytes 10 % (20-55); Metamyelocytes 2 %; Segmented Neutrophils 81 % (50-85); Total Cells Counted 100
[2019-07-08 05:49] LABS: Acanthocytes Few; Anisocytosis 1+; Microcytosis 1+; Platelet Estimate Increased
[2019-07-08 05:50] LABS: Calcium 8.2 MG/DL (8.5-10.1); Osmolality,Calculated 320.7 MOS/KG (273-304)
[2019-07-08] MEDS: SODIUM BICARB INJ 100 MEQ in DEXTROSE 5% 1,000 ML IV SCH ×3 (06:08→16:27)
[2019-07-08] MEDS: ALBUTEROL 2.5 MG/3 ML NEB RESP TX SCH ×4 (07:18→20:08)
[2019-07-08 08:46] LABS: % Iron Saturation 25.3 % (18-50); Ferritin 1441.9 ng/ml (8-252)
[2019-07-08 08:50] LABS: Folate 6.9 NG/ML (5.4-24.0)
[2019-07-08] MEDS: FERROUS SULFATE 300 MG/5 ML UDCUP PO SCH ×2 (08:50→22:06)
[2019-07-08] MEDS: POLYETHYLENE GLYCOL POWDER 17 GM PACK PO SCH (08:50)
[2019-07-08] MEDS: amLODIPine 10 MG TABLET PO SCH (08:51)
[2019-07-08] MEDS: INSULIN LISPRO 100 UNIT/ML SUBCUT SCH ×4 (08:51→22:07)
[2019-07-08] MEDS: DULoxetine 30 MG CAPSULE PO SCH (08:51)
[2019-07-08] MEDS: METOPROLOL TARTRATE 25 MG TABLET PO SCH ×2 (08:51→22:07)
[2019-07-08] MEDS: levETIRAcetam 500 MG TABLET PO SCH ×2 (08:51→22:06)
[2019-07-08] MEDS: OMEPRAZOLE ODT 20 MG TABLET PO SCH (08:51)
[2019-07-08] MEDS: BISACODYL 5 MG TABLET PO SCH (08:51)
[2019-07-08] MEDS: ATORVASTATIN 80 MG TABLET PO SCH (08:51)
[2019-07-08] MEDS: SKIN HEALING OINT (AQUAPHOR) 50 GM TUBE TOP SCH (08:52)
[2019-07-08] MEDS: SODIUM HYPOCHLORITE 0.25% IRRIG 473 ML BOTTLE TOP SCH (08:52)
[2019-07-08] MEDS: MAGNESIUM SULF RIDER 2 GM in PREMIX 1 EACH IV PRN (08:52)
[2019-07-08] MEDS: MEROPENEM 500 MG in SODIUM CHLORIDE 0.9% 100 ML IV SCH ×2 (09:01→22:08)
[2019-07-08 09:12] LABS: Hematocrit 25.2 VOL% (35.7-47.0)
[2019-07-08] MEDS ORDERED: POTASSIUM CHLORIDE 20 MEQ TABLET PO ONE (09:30)
[2019-07-08] MEDS: QUEtiapine 100 MG TABLET PO SCH (22:06)
[2019-07-08] MEDS: ENOXAPARIN 30 MG/0.3 ML SYRINGE SUBCUT SCH (22:06)
[2019-07-08] MEDS: SODIUM BICARB INJ 50 MEQ in SODIUM CHLORIDE 0.45% 1,000 ML IV SCH (22:07)
[2019-07-09] MEDS: ALBUTEROL 2.5 MG/3 ML NEB RESP TX SCH ×4 (06:57→20:40)
[2019-07-09 08:22] LABS: Basophils # 0.1 10*3/uL (0.0-0.2); Basophils % 0.3 % (0.0-0.8); Eosinophils # 0.5 10*3/uL (0.0-0.87); Eosinophils % 2.1 % (0.00-10.9); Hematocrit 20.4 VOL% (35.7-47.0); Hemoglobin 6.6 GM/DL (12.0-16.0); Immature Granulocytes % 3.2 %; Immature Granulocytes Absolute 0.71 #; Lymphocytes # 4.8 10*3/uL (1.4-4.0); Lymphocytes % 21.5 % (21.3-54.2); Mean Corpuscular HGB Conc 32.4 GM/DL (32-36); Mean Corpuscular Volume 87.9 FL (87-102); Mean Platelet Volume 9.9 FL (9.6-12.0); Monocytes % 8.8 % (1.7-12.7); NRBC # 0.03 10*3/uL; Neutrophils % 64.1 % (38.7-73.9); Platelet Count 476 T/CUMM (130-400); Red Blood Count 2.32 MC/CUMM (3.8-5.5); Red Cell Distribution Width 18.6 % (9.3-17.3); White Blood Count 22.3 T/CUMM (4-12)
[2019-07-09 08:40] LABS: Calcium 7.8 MG/DL (8.5-10.1); Osmolality,Calculated 314.8 MOS/KG (273-304)
[2019-07-09 08:42] LABS: Eosinophils 2 % (0-10); Hypochromasia 1+; Lymphocytes 16 % (20-55); Metamyelocytes 1 %; Microcytosis 1+; Segmented Neutrophils 73 % (50-85); Total Cells Counted 100
[2019-07-09 08:43] LABS: Acanthocytes Few; Polychromasia Slight
[2019-07-09] MEDS ORDERED: POTASSIUM CHLORIDE 20 MEQ TABLET PO ONE (09:01)
[2019-07-09] MEDS: SODIUM BICARB INJ 50 MEQ in SODIUM CHLORIDE 0.45% 1,000 ML IV SCH ×2 (09:23→16:21)
[2019-07-09] MEDS: MAGNESIUM SULF RIDER 2 GM in PREMIX 1 EACH IV PRN (09:24)
[2019-07-09] MEDS: MEROPENEM 500 MG in SODIUM CHLORIDE 0.9% 100 ML IV SCH ×3 (09:25→21:01)
[2019-07-09] MEDS: INSULIN LISPRO 100 UNIT/ML SUBCUT SCH ×4 (09:26→20:58)
[2019-07-09] MEDS: BISACODYL 5 MG TABLET PO SCH (09:27)
[2019-07-09] MEDS: levETIRAcetam 500 MG TABLET PO SCH ×2 (09:27→20:56)
[2019-07-09] MEDS: OMEPRAZOLE ODT 20 MG TABLET PO SCH (09:27)
[2019-07-09] MEDS: DULoxetine 30 MG CAPSULE PO SCH (09:27)
[2019-07-09] MEDS: amLODIPine 10 MG TABLET PO SCH (09:27)
[2019-07-09] MEDS: POLYETHYLENE GLYCOL POWDER 17 GM PACK PO SCH (09:27)
[2019-07-09] MEDS: ATORVASTATIN 80 MG TABLET PO SCH (09:27)
[2019-07-09] MEDS: METOPROLOL TARTRATE 25 MG TABLET PO SCH ×2 (09:27→20:56)
[2019-07-09] MEDS: FERROUS SULFATE 300 MG/5 ML UDCUP PO SCH ×2 (09:28→20:57)
[2019-07-09] MEDS: SODIUM HYPOCHLORITE 0.25% IRRIG 473 ML BOTTLE TOP SCH (09:28)
[2019-07-09] MEDS: SKIN HEALING OINT (AQUAPHOR) 50 GM TUBE TOP SCH (09:28)
[2019-07-09 09:36] LABS: Hematocrit 21.6 VOL% (35.7-47.0)
[2019-07-09] MEDS ORDERED: SODIUM CHLORIDE 0.9% 1,000 ML IV PRN (14:23)
[2019-07-09] MEDS: MEGESTROL 40 MG TABLET PO SCH (20:56)
[2019-07-09] MEDS: QUEtiapine 100 MG TABLET PO SCH (20:57)
[2019-07-09] MEDS: ENOXAPARIN 30 MG/0.3 ML SYRINGE SUBCUT SCH (20:57)
[2019-07-10] MEDS: SODIUM BICARB INJ 50 MEQ in SODIUM CHLORIDE 0.45% 1,000 ML IV SCH ×3 (03:14→23:01)
[2019-07-10 06:39] LABS: Basophils # 0.1 10*3/uL (0.0-0.2); Basophils % 0.4 % (0.0-0.8); Eosinophils # 0.3 10*3/uL (0.0-0.87); Eosinophils % 1.3 % (0.00-10.9); Hematocrit 26.8 VOL% (35.7-47.0); Hemoglobin 8.9 GM/DL (12.0-16.0); Immature Granulocytes % 3.3 %; Immature Granulocytes Absolute 0.74 #; Lymphocytes # 2.7 10*3/uL (1.4-4.0); Mean Corpuscular HGB Conc 33.2 GM/DL (32-36); Mean Corpuscular Volume 86.2 FL (87-102); Mean Platelet Volume 10.4 FL (9.6-12.0); Monocytes % 6.8 % (1.7-12.7); NRBC # 0.02 10*3/uL; Neutrophils % 76.2 % (38.7-73.9); Platelet Count 561 T/CUMM (130-400); Red Blood Count 3.11 MC/CUMM (3.8-5.5); White Blood Count 22.1 T/CUMM (4-12)
[2019-07-10 06:57] LABS: Calcium 8.2 MG/DL (8.5-10.1); Osmolality,Calculated 308.7 MOS/KG (273-304)
[2019-07-10] MEDS: ALBUTEROL 2.5 MG/3 ML NEB RESP TX SCH ×4 (07:06→18:04)
[2019-07-10 07:26] LABS: Anisocytosis 1+; Band Neutrophils 6 % (0-10); Lymphocytes 9 % (20-55); Platelet Estimate Increased; Poikilocytosis 1+; Segmented Neutrophils 80 % (50-85); Total Cells Counted 100
[2019-07-10 07:27] LABS: Hypochromasia Slight
[2019-07-10] MEDS: INSULIN LISPRO 100 UNIT/ML SUBCUT SCH ×4 (10:11→22:24)
[2019-07-10] MEDS: SKIN HEALING OINT (AQUAPHOR) 50 GM TUBE TOP SCH (10:12)
[2019-07-10] MEDS: FERROUS SULFATE 300 MG/5 ML UDCUP PO SCH ×2 (10:12→22:23)
[2019-07-10] MEDS: BISACODYL 5 MG TABLET PO SCH (10:12)
[2019-07-10] MEDS: POLYETHYLENE GLYCOL POWDER 17 GM PACK PO SCH (10:12)
[2019-07-10] MEDS: MEGESTROL 40 MG TABLET PO SCH ×2 (10:13→22:23)
[2019-07-10] MEDS: ATORVASTATIN 80 MG TABLET PO SCH (10:13)
[2019-07-10] MEDS: amLODIPine 10 MG TABLET PO SCH (10:13)
[2019-07-10] MEDS: OMEPRAZOLE ODT 20 MG TABLET PO SCH (10:13)
[2019-07-10] MEDS: DULoxetine 30 MG CAPSULE PO SCH (10:13)
[2019-07-10] MEDS: METOPROLOL TARTRATE 25 MG TABLET PO SCH ×2 (10:13→22:23)
[2019-07-10] MEDS: levETIRAcetam 500 MG TABLET PO SCH ×2 (10:13→22:23)
[2019-07-10] MEDS: MEROPENEM 500 MG in SODIUM CHLORIDE 0.9% 100 ML IV SCH ×2 (10:21→22:24)
[2019-07-10] MEDS: SODIUM HYPOCHLORITE 0.25% IRRIG 473 ML BOTTLE TOP SCH (10:22)
[2019-07-10] MEDS: QUEtiapine 100 MG TABLET PO SCH (22:23)
[2019-07-10] MEDS: ENOXAPARIN 30 MG/0.3 ML SYRINGE SUBCUT SCH (22:24)
[2019-07-11 06:29] LABS: Basophils # 0.1 10*3/uL (0.0-0.2); Basophils % 0.4 % (0.0-0.8); Eosinophils # 0.2 10*3/uL (0.0-0.87); Eosinophils % 0.9 % (0.00-10.9); Hematocrit 26.5 VOL% (35.7-47.0); Hemoglobin 8.7 GM/DL (12.0-16.0); Immature Granulocytes % 1.7 %; Immature Granulocytes Absolute 0.31 #; Lymphocytes # 2.7 10*3/uL (1.4-4.0); Lymphocytes % 14.4 % (21.3-54.2); Mean Corpuscular HGB Conc 32.8 GM/DL (32-36); Mean Corpuscular Volume 87.2 FL (87-102); Mean Platelet Volume 10.3 FL (9.6-12.0); Monocytes % 8.4 % (1.7-12.7); Neutrophils % 74.2 % (38.7-73.9); Platelet Count 535 T/CUMM (130-400); Red Blood Count 3.04 MC/CUMM (3.8-5.5); Red Cell Distribution Width 17.9 % (9.3-17.3); White Blood Count 18.5 T/CUMM (4-12)
[2019-07-11 06:56] LABS: Calcium 8.2 MG/DL (8.5-10.1); Osmolality,Calculated 305.8 MOS/KG (273-304)
[2019-07-11] MEDS: ALBUTEROL 2.5 MG/3 ML NEB RESP TX SCH ×4 (07:01→19:45)
[2019-07-11] MEDS: INSULIN LISPRO 100 UNIT/ML SUBCUT SCH ×4 (08:00→21:32)
[2019-07-11] MEDS: levETIRAcetam 500 MG TABLET PO SCH ×2 (10:08→21:21)
[2019-07-11] MEDS: DULoxetine 30 MG CAPSULE PO SCH (10:08)
[2019-07-11] MEDS: OMEPRAZOLE ODT 20 MG TABLET PO SCH (10:09)
[2019-07-11] MEDS: BISACODYL 5 MG TABLET PO SCH (10:09)
[2019-07-11] MEDS: ATORVASTATIN 80 MG TABLET PO SCH (10:09)
[2019-07-11] MEDS: SODIUM HYPOCHLORITE 0.25% IRRIG 473 ML BOTTLE TOP SCH (10:10)
[2019-07-11] MEDS: METOPROLOL TARTRATE 25 MG TABLET PO SCH ×2 (10:10→21:21)
[2019-07-11] MEDS: FERROUS SULFATE 300 MG/5 ML UDCUP PO SCH ×2 (10:10→21:21)
[2019-07-11] MEDS: SKIN HEALING OINT (AQUAPHOR) 50 GM TUBE TOP SCH (10:10)
[2019-07-11] MEDS: POLYETHYLENE GLYCOL POWDER 17 GM PACK PO SCH (10:10)
[2019-07-11] MEDS: amLODIPine 10 MG TABLET PO SCH (10:10)
[2019-07-11] MEDS: MEGESTROL 40 MG TABLET PO SCH ×2 (10:55→21:21)
[2019-07-11] MEDS: SODIUM BICARB INJ 50 MEQ in SODIUM CHLORIDE 0.45% 1,000 ML IV SCH ×2 (10:56→21:22)
[2019-07-11] MEDS: MEROPENEM 500 MG in SODIUM CHLORIDE 0.9% 100 ML IV SCH (13:30)
[2019-07-11] MEDS: ERTAPENEM 1,000 MG in SODIUM CHLORIDE 0.9% 100 ML IV SCH (16:45)
[2019-07-11] MEDS ORDERED: SODIUM PHOSPHATE INJ 30 MMOL in SODIUM CHLORIDE 0.9% 250 ML IV ONE (18:00)
[2019-07-11] MEDS: ENOXAPARIN 30 MG/0.3 ML SYRINGE SUBCUT SCH (21:21)
[2019-07-11] MEDS: QUEtiapine 100 MG TABLET PO SCH (21:21)
[2019-07-12] MEDS: SODIUM BICARB INJ 50 MEQ in SODIUM CHLORIDE 0.45% 1,000 ML IV SCH (05:44)
[2019-07-12 05:54] LABS: Basophils # 0.1 10*3/uL (0.0-0.2); Basophils % 0.4 % (0.0-0.8); Eosinophils # 0.3 10*3/uL (0.0-0.87); Eosinophils % 1.5 % (0.00-10.9); Hematocrit 24.5 VOL% (35.7-47.0); Immature Granulocytes % 1.1 %; Immature Granulocytes Absolute 0.19 #; Lymphocytes # 2.7 10*3/uL (1.4-4.0); Mean Corpuscular HGB Conc 32.7 GM/DL (32-36); Mean Corpuscular Volume 87.5 FL (87-102); Mean Platelet Volume 10.5 FL (9.6-12.0); Monocytes % 8.2 % (1.7-12.7); Neutrophils % 72.8 % (38.7-73.9); Platelet Count 449 T/CUMM (130-400); Red Cell Distribution Width 17.9 % (9.3-17.3); White Blood Count 16.9 T/CUMM (4-12)
[2019-07-12 06:32] LABS: Calcium 7.9 MG/DL (8.5-10.1); Osmolality,Calculated 306.7 MOS/KG (273-304)
[2019-07-12] MEDS: ALBUTEROL 2.5 MG/3 ML NEB RESP TX SCH ×3 (07:26→14:10)
[2019-07-12] MEDS: OMEPRAZOLE ODT 20 MG TABLET PO SCH (08:50)
[2019-07-12] MEDS: DULoxetine 30 MG CAPSULE PO SCH (08:50)
[2019-07-12] MEDS: INSULIN LISPRO 100 UNIT/ML SUBCUT SCH ×2 (08:50→12:20)
[2019-07-12] MEDS: levETIRAcetam 500 MG TABLET PO SCH (08:50)
[2019-07-12] MEDS: ATORVASTATIN 80 MG TABLET PO SCH (08:50)
[2019-07-12] MEDS: amLODIPine 10 MG TABLET PO SCH (08:51)
[2019-07-12] MEDS: SODIUM HYPOCHLORITE 0.25% IRRIG 473 ML BOTTLE TOP SCH (08:51)
[2019-07-12] MEDS: BISACODYL 5 MG TABLET PO SCH (08:51)
[2019-07-12] MEDS: MEGESTROL 40 MG TABLET PO SCH (08:51)
[2019-07-12] MEDS: POLYETHYLENE GLYCOL POWDER 17 GM PACK PO SCH (08:51)
[2019-07-12] MEDS: FERROUS SULFATE 300 MG/5 ML UDCUP PO SCH ×2 (08:51→08:59)
[2019-07-12] MEDS: METOPROLOL TARTRATE 25 MG TABLET PO SCH (08:51)
[2019-07-12] MEDS: SKIN HEALING OINT (AQUAPHOR) 50 GM TUBE TOP SCH (08:52)
[2019-07-12] MEDS ORDERED: POTASSIUM PHOSPHATE 15 MMOL in SODIUM CHLORIDE 0.9% 100 ML IV ONE (09:00)
[2019-07-12] MEDS: POTASSIUM PHOS/SOD PHOS 250 MG TABLET PO SCH ×2 (09:17→15:48)
[2019-07-12 12:33] VITALS: BP 152/84
[2019-07-12] MEDS: ERTAPENEM 1,000 MG in SODIUM CHLORIDE 0.9% 100 ML IV SCH (13:58)
== END 2019-07-12 15:58 | DRG 853 ==
LOC: N.ED 09:29 → SUATTDRO 13:13 → N.EDINP 13:13 → N.5E 13:55 → N.ICU 07-04 09:05 → N.5E 07-05 15:35
PROVIDERS: ADMIT Emergency Medicine; ATTEND Family Medicine

== ENCOUNTER 2019-07-17 06:55 | Inpatient (IN) ==
[2019-07-17] MEDS ORDERED: PHENYTOIN INJ 1,000 MG in SODIUM CHLORIDE 0.9% 100 ML IV STA (07:33)
[2019-07-17 07:51] LABS: Basophils # 0.1 10*3/uL (0.0-0.2); Basophils % 0.5 % (0.0-0.8); Hemoglobin 9.8 GM/DL (12.0-16.0); Immature Granulocytes % 0.7 %; Immature Granulocytes Absolute 0.19 #; Lymphocytes # 1.7 10*3/uL (1.4-4.0); Lymphocytes % 6.1 % (21.3-54.2); Mean Corpuscular HGB Conc 30.6 GM/DL (32-36); Mean Corpuscular Volume 92.8 FL (87-102); Mean Platelet Volume 10.2 FL (9.6-12.0); Monocytes % 2.7 % (1.7-12.7); Platelet Count 531 T/CUMM (130-400); Red Blood Count 3.45 MC/CUMM (3.8-5.5); Red Cell Distribution Width 18.4 % (9.3-17.3); White Blood Count 28.6 T/CUMM (4-12)
[2019-07-17] MEDS ORDERED: levETIRAcetam 500 MG/5 ML VIAL IV ONE (07:58)
[2019-07-17 07:59] LABS: Amorphous Crystals,Urine Occasional /HPF (Few); Apearance,Urine CLOUDY (Clear); Bacteria,Urine Occasional /HPF (Few); Bilirubin,Urine Negative (Negative); Blood, Urine Moderate mg/dL (Negative); Glucose,Urine (UA) Negative (Negative); Hyaline Casts,Urine 1 /LPF (0-3); Ketones,Urine 5 mg/dL (Negative); Nitrite,Urine Negative (Negative); Protein,Urine 100 MG/DL; RBC,Urine 15 /HPF (0-4); Squamous Epithelial Cell,Urine Occasional /HPF (0-10); Urine Color Yellow (Yellow); Urine Specific Gravity 1.015 (1.001-1.035); Urine Urobilinogen < 2.0 EU/DL (0.2-1.0); WBC,Urine 21 /HPF (0-6)
[2019-07-17 08:06] LABS: Calcium 7.9 MG/DL (8.5-10.1); Osmolality,Calculated 299.4 MOS/KG (273-304)
[2019-07-17 08:25] LABS: Hypochromasia 1+; Lymphocytes 3 % (20-55); Segmented Neutrophils 95 % (50-85); Total Cells Counted 100
[2019-07-17 08:26] LABS: Macrocytosis 1+
[2019-07-17] MEDS ORDERED: MEROPENEM 500 MG in SODIUM CHLORIDE 0.9% 100 ML IV ONE (08:59)
[2019-07-17] MEDS ORDERED: ONDANSETRON 4 MG/2 ML VIAL IV PRN (09:42)
[2019-07-17] MEDS ORDERED: MORPHINE 4 MG/1 ML VIAL IV PRN (09:42)
[2019-07-17 10:10] LABS: Thyroid Stimulating Hormone 5.23 uIU/ml (0.358-3.74)
[2019-07-17] MEDS ORDERED: MAGNESIUM SULF RIDER 2 GM in PREMIX 1 EACH IV ONE (11:19)
[2019-07-17] MEDS ORDERED: DEXTROSE 10% 250 ML BAG IV PRN (11:23)
[2019-07-17] MEDS ORDERED: GLUCAGON 1 MG VIAL IM PRN (11:23)
[2019-07-17] MEDS: DEXTROSE 5% NACL 0.45% 1,000 ML IV SCH ×2 (13:42→17:55)
[2019-07-17] MEDS: ERTAPENEM 1,000 MG in SODIUM CHLORIDE 0.9% 100 ML IV SCH (13:42)
[2019-07-17] MEDS: INSULIN REGULAR 100 UNIT/ML SUBCUT SCH ×3 (14:17→20:10)
[2019-07-17] MEDS: DEXTROSE 10% 500 ML IV SCH (14:23)
[2019-07-17] MEDS ORDERED: LORazepam 2 MG/1 ML VIAL IV PRN (14:26)
[2019-07-17] MEDS ORDERED: LORazepam 2 MG/1 ML VIAL IV ONE (14:31)
[2019-07-17] MEDS: PHENYTOIN 100 MG/2 ML VIAL IV SCH ×2 (14:53→21:52)
[2019-07-17] MEDS ORDERED: PHENYTOIN ER 100 MG CAPSULE PO SCH (15:00)
[2019-07-17] MEDS: POTASSIUM PHOS/SOD PHOS 250 MG TABLET PO SCH (16:22)
[2019-07-17] MEDS ORDERED: ENOXAPARIN 30 MG/0.3 ML SYRINGE SUBCUT SCH (21:00)
[2019-07-17] MEDS ORDERED: levETIRAcetam 250 MG TABLET PO SCH (21:00)
[2019-07-17] MEDS ORDERED: MICONAZOLE 2% VAG CREAM 45 GM TUBE VAG SCH (21:00)
[2019-07-17] MEDS ORDERED: QUEtiapine 100 MG TABLET PO SCH (21:00)
[2019-07-18] MEDS: METOPROLOL TARTRATE 25 MG TABLET PO SCH ×3 (01:06→20:16)
[2019-07-18] MEDS: FERROUS SULFATE 300 MG/5 ML UDCUP PO SCH ×3 (01:06→20:20)
[2019-07-18] MEDS: POTASSIUM PHOS/SOD PHOS 250 MG TABLET PO SCH ×4 (01:06→20:16)
[2019-07-18] MEDS: MEGESTROL 400 MG/10 ML UDCUP PO SCH ×3 (01:07→20:16)
[2019-07-18] MEDS: PANTOPRAZOLE 40 MG TABLET PO SCH ×3 (01:07→20:17)
[2019-07-18 02:31] LABS: ABG Base Excess -7.7 MMOL/L (-2.5-2.5); ABG HCO3 18.1 MMOL/L (20-26); ABG Oxygen Saturation 98.6 % (95-100); ABG PCO2 30.1 MM HG (35-48); ABG PH 7.359 (7.35-7.45); ABG TCO2 16.1 MMOL/L (23-27); Allen Test Positive
[2019-07-18] MEDS: DEXTROSE 5% NACL 0.45% 1,000 ML IV SCH (05:33)
[2019-07-18] MEDS: PHENYTOIN 100 MG/2 ML VIAL IV SCH ×3 (05:38→23:18)
[2019-07-18 06:18] LABS: Calcium 7.7 MG/DL (8.5-10.1); Osmolality,Calculated 299.6 MOS/KG (273-304); Risk Ratio 2.68; VLDL CHOLESTEROL 27.8 MG/DL
[2019-07-18 06:52] LABS: Basophils # 0.1 10*3/uL (0.0-0.2); Basophils % 0.7 % (0.0-0.8); Eosinophils # 0.2 10*3/uL (0.0-0.87); Eosinophils % 1.2 % (0.00-10.9); Hematocrit 26.1 VOL% (35.7-47.0); Immature Granulocytes % 0.7 %; Immature Granulocytes Absolute 0.12 #; Lymphocytes # 2.8 10*3/uL (1.4-4.0); Lymphocytes % 15.8 % (21.3-54.2); Mean Corpuscular HGB Conc 30.3 GM/DL (32-36); Mean Corpuscular Volume 93.5 FL (87-102); Mean Platelet Volume 10.9 FL (9.6-12.0); Monocytes % 7.4 % (1.7-12.7); Neutrophils % 74.2 % (38.7-73.9); Platelet Count 458 T/CUMM (130-400); Red Blood Count 2.79 MC/CUMM (3.8-5.5); Red Cell Distribution Width 17.9 % (9.3-17.3)
[2019-07-18] MEDS ORDERED: FUROSEMIDE 40 MG/4 ML VIAL IV ONE (06:56)
[2019-07-18] MEDS ORDERED: ALBUMIN 25% 25 GM in PREMIX 1 EACH IV ONE (06:56)
[2019-07-18 07:28] LABS: Hemoglobin 7.9 GM/DL (12.0-16.0); White Blood Count 17.7 T/CUMM (4-12)
[2019-07-18] MEDS ORDERED: PHENYTOIN INJ 1,000 MG in SODIUM CHLORIDE 0.9% 100 ML IV ONE (07:30)
[2019-07-18 07:38] LABS: Calcium 7.6 MG/DL (8.5-10.1); Osmolality,Calculated 299.6 MOS/KG (273-304)
[2019-07-18] MEDS ORDERED: MAGNESIUM SULF RIDER 2 GM in PREMIX 1 EACH IV ONE (08:23)
[2019-07-18] MEDS: DEXT 5% LACT RING KCL 20 MEQ 20 MEQ/1,000 ML BAG IV SCH (09:15)
[2019-07-18] MEDS: POTASSIUM CHLORIDE 20 MEQ/15 ML UDCUP PO SCH ×3 (09:28→18:13)
[2019-07-18] MEDS: DULoxetine 30 MG CAPSULE PO SCH (09:34)
[2019-07-18] MEDS: POLYETHYLENE GLYCOL POWDER 17 GM PACK PO SCH (09:35)
[2019-07-18] MEDS: amLODIPine 10 MG TABLET PO SCH (09:35)
[2019-07-18] MEDS: MULTIVITAMIN (CENTRUM) TABLET PO SCH (09:35)
[2019-07-18] MEDS: ASCORBIC ACID 500 MG TABLET PO SCH (09:35)
[2019-07-18] MEDS: ATORVASTATIN 80 MG TABLET PO SCH (09:37)
[2019-07-18] MEDS: SODIUM HYPOCHLORITE 0.25% IRRIG 473 ML BOTTLE TOP SCH (15:19)
[2019-07-18 15:28] LABS: Calcium 7.6 MG/DL (8.5-10.1); Osmolality,Calculated 295.7 MOS/KG (273-304)
[2019-07-18] MEDS: DEXTROSE 10% 500 ML IV SCH (15:49)
[2019-07-18] MEDS: ERTAPENEM 1,000 MG in SODIUM CHLORIDE 0.9% 100 ML IV SCH (16:05)
[2019-07-18] MEDS: QUEtiapine 100 MG TABLET PO SCH (20:16)
[2019-07-18] MEDS: ENOXAPARIN 40 MG/0.4 ML SYRINGE SUBCUT SCH (20:17)
[2019-07-19] MEDS: DEXT 5% LACT RING KCL 20 MEQ 20 MEQ/1,000 ML BAG IV SCH (03:13)
[2019-07-19 04:18] LABS: Basophils # 0.1 10*3/uL (0.0-0.2); Basophils % 0.7 % (0.0-0.8); Eosinophils # 0.4 10*3/uL (0.0-0.87); Eosinophils % 2.5 % (0.00-10.9); Hematocrit 26.4 VOL% (35.7-47.0); Hemoglobin 8.2 GM/DL (12.0-16.0); Immature Granulocytes % 0.6 %; Immature Granulocytes Absolute 0.08 #; Lymphocytes # 2.2 10*3/uL (1.4-4.0); Lymphocytes % 15.7 % (21.3-54.2); Mean Corpuscular HGB Conc 31.1 GM/DL (32-36); Mean Platelet Volume 10.5 FL (9.6-12.0); Monocytes % 6.8 % (1.7-12.7); Neutrophils % 73.7 % (38.7-73.9); Platelet Count 434 T/CUMM (130-400); Red Blood Count 2.87 MC/CUMM (3.8-5.5); Red Cell Distribution Width 18.4 % (9.3-17.3); White Blood Count 13.8 T/CUMM (4-12)
[2019-07-19 04:50] LABS: Calcium 7.7 MG/DL (8.5-10.1); Osmolality,Calculated 300.1 MOS/KG (273-304)
[2019-07-19] MEDS: PHENYTOIN 100 MG/2 ML VIAL IV SCH ×3 (06:14→22:32)
[2019-07-19] MEDS: DEXTROSE 5% NACL 0.45% 1,000 ML IV SCH ×2 (09:32→23:12)
[2019-07-19] MEDS: POTASSIUM PHOS/SOD PHOS 250 MG TABLET PO SCH ×3 (09:33→20:56)
[2019-07-19] MEDS: SODIUM HYPOCHLORITE 0.25% IRRIG 473 ML BOTTLE TOP SCH (09:34)
[2019-07-19] MEDS: MULTIVITAMIN (CENTRUM) TABLET PO SCH (09:34)
[2019-07-19] MEDS: FERROUS SULFATE 300 MG/5 ML UDCUP PO SCH ×2 (09:34→20:55)
[2019-07-19] MEDS: POLYETHYLENE GLYCOL POWDER 17 GM PACK PO SCH (09:35)
[2019-07-19] MEDS: ATORVASTATIN 80 MG TABLET PO SCH (09:35)
[2019-07-19] MEDS: METOPROLOL TARTRATE 25 MG TABLET PO SCH ×2 (09:35→20:56)
[2019-07-19] MEDS: PANTOPRAZOLE 40 MG VIAL IV SCH ×2 (09:35→20:53)
[2019-07-19] MEDS: MEGESTROL 400 MG/10 ML UDCUP PO SCH ×2 (09:35→20:55)
[2019-07-19] MEDS: amLODIPine 10 MG TABLET PO SCH (09:35)
[2019-07-19] MEDS: ASCORBIC ACID 500 MG TABLET PO SCH (09:35)
[2019-07-19] MEDS: DULoxetine 30 MG CAPSULE PO SCH (09:36)
[2019-07-19] MEDS: ERTAPENEM 1,000 MG in SODIUM CHLORIDE 0.9% 100 ML IV SCH (12:21)
[2019-07-19] MEDS ORDERED: SKIN HEALING OINT (AQUAPHOR) 50 GM TUBE TOP PRN (14:36)
[2019-07-19] MEDS: QUEtiapine 100 MG TABLET PO SCH (20:56)
[2019-07-19] MEDS: ENOXAPARIN 40 MG/0.4 ML SYRINGE SUBCUT SCH (20:57)
[2019-07-20] MEDS: DEXTROSE 5% NACL 0.45% 1,000 ML IV SCH ×2 (01:42→17:35)
[2019-07-20 05:10] LABS: Prealbumin 12.1 MG/DL (20-40)
[2019-07-20] MEDS: PHENYTOIN 100 MG/2 ML VIAL IV SCH ×3 (05:33→23:29)
[2019-07-20] MEDS: PANTOPRAZOLE 40 MG VIAL IV SCH ×2 (09:48→20:11)
[2019-07-20] MEDS: POTASSIUM PHOS/SOD PHOS 250 MG TABLET PO SCH ×3 (09:49→20:13)
[2019-07-20] MEDS: POLYETHYLENE GLYCOL POWDER 17 GM PACK PO SCH (09:49)
[2019-07-20] MEDS: MEGESTROL 400 MG/10 ML UDCUP PO SCH ×2 (09:49→20:13)
[2019-07-20] MEDS: METOPROLOL TARTRATE 25 MG TABLET PO SCH ×2 (09:49→20:13)
[2019-07-20] MEDS: MULTIVITAMIN (CENTRUM) TABLET PO SCH (09:49)
[2019-07-20] MEDS: FERROUS SULFATE 300 MG/5 ML UDCUP PO SCH ×2 (09:49→20:13)
[2019-07-20] MEDS: amLODIPine 10 MG TABLET PO SCH (09:49)
[2019-07-20] MEDS: ATORVASTATIN 80 MG TABLET PO SCH (09:49)
[2019-07-20] MEDS: ASCORBIC ACID 500 MG TABLET PO SCH (09:49)
[2019-07-20] MEDS: SODIUM HYPOCHLORITE 0.25% IRRIG 473 ML BOTTLE TOP SCH (09:50)
[2019-07-20] MEDS: DULoxetine 30 MG CAPSULE PO SCH (09:50)
[2019-07-20] MEDS ORDERED: PHENYTOIN IV SCH (12:00)
[2019-07-20] MEDS ORDERED: SODIUM CHLORIDE 0.9% IV SCH (12:00)
[2019-07-20] MEDS: ERTAPENEM 1,000 MG in SODIUM CHLORIDE 0.9% 100 ML IV SCH (12:28)
[2019-07-20] MEDS ORDERED: DEXTROSE 50% 25 GM/50 ML VIAL IV PRN (12:32)
[2019-07-20] MEDS: INSULIN REGULAR 100 UNIT/ML SUBCUT SCH ×3 (13:52→23:30)
[2019-07-20] MEDS ORDERED: LACOSAMIDE INJ 200 MG in SODIUM CHLORIDE 0.9% 50 ML IV ONE (17:04)
[2019-07-20] MEDS: QUEtiapine 100 MG TABLET PO SCH (20:13)
[2019-07-20] MEDS: ENOXAPARIN 40 MG/0.4 ML SYRINGE SUBCUT SCH (20:14)
[2019-07-21] MEDS: hydrALAZINE 20 MG/1 ML VIAL IV PRN (03:51)
[2019-07-21 04:17] LABS: Basophils # 0.1 10*3/uL (0.0-0.2); Basophils % 0.3 % (0.0-0.8); Eosinophils # 0.4 10*3/uL (0.0-0.87); Eosinophils % 2.2 % (0.00-10.9); Hematocrit 26.2 VOL% (35.7-47.0); Hemoglobin 7.9 GM/DL (12.0-16.0); Immature Granulocytes % 0.5 %; Immature Granulocytes Absolute 0.09 #; Lymphocytes # 3.2 10*3/uL (1.4-4.0); Lymphocytes % 18.5 % (21.3-54.2); Mean Corpuscular HGB Conc 30.2 GM/DL (32-36); Mean Corpuscular Volume 94.9 FL (87-102); Mean Platelet Volume 10.9 FL (9.6-12.0); Monocytes % 6.8 % (1.7-12.7); Neutrophils % 71.7 % (38.7-73.9); Platelet Count 431 T/CUMM (130-400); Red Blood Count 2.76 MC/CUMM (3.8-5.5); Red Cell Distribution Width 18.1 % (9.3-17.3); White Blood Count 17.5 T/CUMM (4-12)
[2019-07-21 04:29] LABS: Calcium 7.5 MG/DL (8.5-10.1); Osmolality,Calculated 305.4 MOS/KG (273-304)
[2019-07-21] MEDS: DEXTROSE 5% NACL 0.45% 1,000 ML IV SCH (05:02)
[2019-07-21] MEDS: LACOSAMIDE INJ 150 MG in SODIUM CHLORIDE 0.9% 50 ML IV SCH ×2 (05:04→17:03)
[2019-07-21] MEDS: INSULIN REGULAR 100 UNIT/ML SUBCUT SCH ×4 (05:47→23:50)
[2019-07-21] MEDS: PHENYTOIN 100 MG/2 ML VIAL IV SCH ×4 (05:48→23:50)
[2019-07-21] MEDS: POLYETHYLENE GLYCOL POWDER 17 GM PACK PO SCH (09:04)
[2019-07-21] MEDS: FERROUS SULFATE 300 MG/5 ML UDCUP PO SCH ×2 (09:04→20:49)
[2019-07-21] MEDS: DULoxetine 30 MG CAPSULE PO SCH (09:04)
[2019-07-21] MEDS: POTASSIUM PHOS/SOD PHOS 250 MG TABLET PO SCH ×3 (09:04→20:50)
[2019-07-21] MEDS: MEGESTROL 400 MG/10 ML UDCUP PO SCH ×2 (09:04→20:49)
[2019-07-21] MEDS: PANTOPRAZOLE 40 MG VIAL IV SCH ×2 (09:04→20:49)
[2019-07-21] MEDS: ATORVASTATIN 80 MG TABLET PO SCH (09:05)
[2019-07-21] MEDS: amLODIPine 10 MG TABLET PO SCH (09:05)
[2019-07-21] MEDS: METOPROLOL TARTRATE 25 MG TABLET PO SCH ×2 (09:05→20:51)
[2019-07-21] MEDS: ASCORBIC ACID 500 MG TABLET PO SCH (09:05)
[2019-07-21] MEDS: MULTIVITAMIN LIQUID (CENTRUM) 60 ML BOTTLE NG SCH (09:06)
[2019-07-21] MEDS ORDERED: FUROSEMIDE 40 MG/4 ML VIAL IV ONE (10:53)
[2019-07-21] MEDS ORDERED: SODIUM CHLORIDE 0.9% 1,000 ML IV PRN ×2 (13:34→16:20)
[2019-07-21] MEDS: SODIUM HYPOCHLORITE 0.25% IRRIG 473 ML BOTTLE TOP SCH (16:08)
[2019-07-21] MEDS: FLUCONAZOLE INJ 100 MG in IV BAG 1 EACH IV SCH (16:22)
[2019-07-21] MEDS: ENOXAPARIN 40 MG/0.4 ML SYRINGE SUBCUT SCH (20:49)
[2019-07-21] MEDS: ACETAMINOPHEN 325 MG TABLET PO PRN (20:50)
[2019-07-21] MEDS: QUEtiapine 100 MG TABLET PO SCH (20:50)
[2019-07-22 05:34] LABS: Basophils # 0.1 10*3/uL (0.0-0.2); Basophils % 0.3 % (0.0-0.8); Eosinophils # 0.4 10*3/uL (0.0-0.87); Eosinophils % 2.3 % (0.00-10.9); Hemoglobin 7.8 GM/DL (12.0-16.0); Immature Granulocytes % 0.5 %; Lymphocytes # 2.8 10*3/uL (1.4-4.0); Lymphocytes % 14.5 % (21.3-54.2); Mean Corpuscular Volume 95.6 FL (87-102); Mean Platelet Volume 11.6 FL (9.6-12.0); Monocytes % 5.9 % (1.7-12.7); Neutrophils % 76.5 % (38.7-73.9); Platelet Count 411 T/CUMM (130-400); Red Blood Count 2.72 MC/CUMM (3.8-5.5); Red Cell Distribution Width 18.4 % (9.3-17.3)
[2019-07-22 05:48] LABS: Calcium 7.5 MG/DL (8.5-10.1); Osmolality,Calculated 306.6 MOS/KG (273-304)
[2019-07-22] MEDS: INSULIN REGULAR 100 UNIT/ML SUBCUT SCH ×4 (06:08→23:31)
[2019-07-22] MEDS: hydrALAZINE 20 MG/1 ML VIAL IV PRN ×2 (06:09→13:08)
[2019-07-22] MEDS: LACOSAMIDE INJ 150 MG in SODIUM CHLORIDE 0.9% 50 ML IV SCH ×2 (06:09→17:40)
[2019-07-22] MEDS: PHENYTOIN 100 MG/2 ML VIAL IV SCH ×4 (06:13→23:30)
[2019-07-22] MEDS: MULTIVITAMIN LIQUID (CENTRUM) 60 ML BOTTLE NG SCH (08:52)
[2019-07-22] MEDS: FERROUS SULFATE 300 MG/5 ML UDCUP PO SCH ×2 (08:52→20:22)
[2019-07-22] MEDS: DULoxetine 30 MG CAPSULE PO SCH (08:52)
[2019-07-22] MEDS: PANTOPRAZOLE 40 MG VIAL IV SCH ×2 (08:52→20:23)
[2019-07-22] MEDS: MEGESTROL 400 MG/10 ML UDCUP PO SCH ×2 (08:52→20:22)
[2019-07-22] MEDS: ASCORBIC ACID 500 MG TABLET PO SCH (08:53)
[2019-07-22] MEDS: ATORVASTATIN 80 MG TABLET PO SCH (08:53)
[2019-07-22] MEDS: amLODIPine 10 MG TABLET PO SCH (08:53)
[2019-07-22] MEDS: POTASSIUM PHOS/SOD PHOS 250 MG TABLET PO SCH ×3 (08:53→20:23)
[2019-07-22] MEDS: METOPROLOL TARTRATE 25 MG TABLET PO SCH ×2 (08:53→20:24)
[2019-07-22] MEDS: POLYETHYLENE GLYCOL POWDER 17 GM PACK PO SCH (08:54)
[2019-07-22] MEDS: SODIUM HYPOCHLORITE 0.25% IRRIG 473 ML BOTTLE TOP SCH (15:00)
[2019-07-22] MEDS: FUROSEMIDE 40 MG/4 ML VIAL IV SCH (16:54)
[2019-07-22] MEDS: FLUCONAZOLE INJ 100 MG in IV BAG 1 EACH IV SCH (17:15)
[2019-07-22] MEDS: ACETAMINOPHEN 325 MG TABLET PO PRN (18:01)
[2019-07-22] MEDS: ENOXAPARIN 40 MG/0.4 ML SYRINGE SUBCUT SCH (20:23)
[2019-07-22] MEDS: QUEtiapine 100 MG TABLET PO SCH (20:23)
[2019-07-23] MEDS: LACOSAMIDE INJ 150 MG in SODIUM CHLORIDE 0.9% 50 ML IV SCH ×2 (04:30→18:16)
[2019-07-23 05:33] LABS: Basophils # 0.1 10*3/uL (0.0-0.2); Basophils % 0.3 % (0.0-0.8); Eosinophils # 0.1 10*3/uL (0.0-0.87); Eosinophils % 0.5 % (0.00-10.9); Hematocrit 24.5 VOL% (35.7-47.0); Hemoglobin 7.3 GM/DL (12.0-16.0); Immature Granulocytes % 0.9 %; Immature Granulocytes Absolute 0.17 #; Lymphocytes # 2.8 10*3/uL (1.4-4.0); Lymphocytes % 13.8 % (21.3-54.2); Mean Corpuscular HGB Conc 29.8 GM/DL (32-36); Mean Corpuscular Volume 95.7 FL (87-102); Mean Platelet Volume 11.5 FL (9.6-12.0); Monocytes % 6.5 % (1.7-12.7); Platelet Count 417 T/CUMM (130-400); Red Blood Count 2.56 MC/CUMM (3.8-5.5); Red Cell Distribution Width 18.5 % (9.3-17.3)
[2019-07-23 05:54] LABS: Calcium 7.7 MG/DL (8.5-10.1); Osmolality,Calculated 317.1 MOS/KG (273-304)
[2019-07-23] MEDS: PHENYTOIN 100 MG/2 ML VIAL IV SCH ×4 (06:02→23:53)
[2019-07-23] MEDS: INSULIN REGULAR 100 UNIT/ML SUBCUT SCH ×4 (06:05→23:53)
[2019-07-23] MEDS: hydrALAZINE 20 MG/1 ML VIAL IV PRN ×3 (07:24→19:04)
[2019-07-23] MEDS: FUROSEMIDE 40 MG/4 ML VIAL IV SCH ×2 (09:39→17:26)
[2019-07-23] MEDS: PANTOPRAZOLE 40 MG VIAL IV SCH ×2 (09:40→20:05)
[2019-07-23] MEDS: DULoxetine 30 MG CAPSULE PO SCH (09:41)
[2019-07-23] MEDS: FERROUS SULFATE 300 MG/5 ML UDCUP PO SCH ×2 (09:41→20:08)
[2019-07-23] MEDS: MULTIVITAMIN LIQUID (CENTRUM) 60 ML BOTTLE NG SCH (09:41)
[2019-07-23] MEDS: MEGESTROL 400 MG/10 ML UDCUP PO SCH ×2 (09:41→20:08)
[2019-07-23] MEDS: ATORVASTATIN 80 MG TABLET PO SCH (09:41)
[2019-07-23] MEDS: SODIUM HYPOCHLORITE 0.25% IRRIG 473 ML BOTTLE TOP SCH (09:41)
[2019-07-23] MEDS: amLODIPine 10 MG TABLET PO SCH (09:42)
[2019-07-23] MEDS: POLYETHYLENE GLYCOL POWDER 17 GM PACK PO SCH (09:42)
[2019-07-23] MEDS: METOPROLOL TARTRATE 25 MG TABLET PO SCH (09:42)
[2019-07-23] MEDS: ASCORBIC ACID 500 MG TABLET PO SCH (09:42)
[2019-07-23] MEDS: POTASSIUM PHOS/SOD PHOS 250 MG TABLET PO SCH ×3 (09:42→20:07)
[2019-07-23] MEDS ORDERED: FUROSEMIDE 40 MG/4 ML VIAL IV SCH (17:00)
[2019-07-23] MEDS: FLUCONAZOLE INJ 100 MG in IV BAG 1 EACH IV SCH (17:11)
[2019-07-23] MEDS ORDERED: FUROSEMIDE 20 MG/2 ML VIAL ONE (18:07)
[2019-07-23 19:33] LABS: Apearance,Urine CLOUDY (Clear); Bacteria,Urine Many /HPF (Few); Bilirubin,Urine Negative (Negative); Blood, Urine Negative (Negative); Glucose,Urine (UA) Negative (Negative); Hyaline Casts,Urine 54 /LPF (0-3); Ketones,Urine Negative (Negative); Mucus,Urine Occasional /LPF (Occasional); Nitrite,Urine Negative (Negative); Protein,Urine 100 MG/DL; RBC,Urine 18 /HPF (0-4); Squamous Epithelial Cell,Urine Occasional /HPF (0-10); Urine Color Yellow (Yellow); Urine Urobilinogen < 2.0 EU/DL (0.2-1.0); WBC,Urine 874 /HPF (0-6)
[2019-07-23] MEDS: METOPROLOL TARTRATE 50 MG TABLET PO SCH (20:07)
[2019-07-23] MEDS: QUEtiapine 100 MG TABLET PO SCH (20:08)
[2019-07-23] MEDS: ENOXAPARIN 40 MG/0.4 ML SYRINGE SUBCUT SCH (20:08)
[2019-07-23] MEDS: INSULIN GLARGINE 100 UNIT/ML SUBCUT SCH (20:56)
[2019-07-24] MEDS: hydrALAZINE 20 MG/1 ML VIAL IV PRN ×2 (00:25→17:20)
[2019-07-24 01:30] LABS: Hematocrit 29.4 VOL% (35.7-47.0); Hemoglobin 9.2 GM/DL (12.0-16.0)
[2019-07-24 04:41] LABS: Basophils # 0.1 10*3/uL (0.0-0.2); Basophils % 0.4 % (0.0-0.8); Eosinophils # 0.2 10*3/uL (0.0-0.87); Eosinophils % 1.3 % (0.00-10.9); Hematocrit 28.3 VOL% (35.7-47.0); Immature Granulocytes % 1.3 %; Immature Granulocytes Absolute 0.24 #; Lymphocytes # 2.7 10*3/uL (1.4-4.0); Lymphocytes % 14.9 % (21.3-54.2); Mean Corpuscular HGB Conc 31.8 GM/DL (32-36); Mean Corpuscular Volume 94.6 FL (87-102); Mean Platelet Volume 11.3 FL (9.6-12.0); Neutrophils % 74.1 % (38.7-73.9); Platelet Count 369 T/CUMM (130-400); Red Blood Count 2.99 MC/CUMM (3.8-5.5); Red Cell Distribution Width 16.9 % (9.3-17.3); White Blood Count 18.1 T/CUMM (4-12)
[2019-07-24] MEDS: LACOSAMIDE INJ 150 MG in SODIUM CHLORIDE 0.9% 50 ML IV SCH ×2 (04:43→16:29)
[2019-07-24 05:03] LABS: Calcium 7.8 MG/DL (8.5-10.1); Osmolality,Calculated 322.1 MOS/KG (273-304)
[2019-07-24] MEDS: PHENYTOIN 100 MG/2 ML VIAL IV SCH ×3 (05:27→17:29)
[2019-07-24] MEDS: INSULIN REGULAR 100 UNIT/ML SUBCUT SCH ×3 (05:27→17:28)
[2019-07-24] MEDS: POTASSIUM PHOS/SOD PHOS 250 MG TABLET PO SCH ×3 (08:20→20:12)
[2019-07-24] MEDS: DULoxetine 30 MG CAPSULE PO SCH (08:20)
[2019-07-24] MEDS: ATORVASTATIN 80 MG TABLET PO SCH (08:21)
[2019-07-24] MEDS: amLODIPine 10 MG TABLET PO SCH (08:21)
[2019-07-24] MEDS: METOPROLOL TARTRATE 50 MG TABLET PO SCH ×2 (08:21→20:12)
[2019-07-24] MEDS: ASCORBIC ACID 500 MG TABLET PO SCH (08:21)
[2019-07-24] MEDS: FERROUS SULFATE 300 MG/5 ML UDCUP PO SCH ×2 (08:21→20:14)
[2019-07-24] MEDS: SODIUM HYPOCHLORITE 0.25% IRRIG 473 ML BOTTLE TOP SCH (08:21)
[2019-07-24] MEDS: MEGESTROL 400 MG/10 ML UDCUP PO SCH ×2 (08:21→20:14)
[2019-07-24] MEDS: POLYETHYLENE GLYCOL POWDER 17 GM PACK PO SCH (08:22)
[2019-07-24] MEDS: MULTIVITAMIN LIQUID (CENTRUM) 60 ML BOTTLE NG SCH (08:22)
[2019-07-24] MEDS: PANTOPRAZOLE 40 MG VIAL IV SCH ×2 (08:22→20:11)
[2019-07-24] MEDS ORDERED: AZTREONAM 2,000 MG in SYRINGE 1 EACH IV SCH (09:00)
[2019-07-24] MEDS ORDERED: LEVOFLOXACIN INJ 500 MG in PREMIX 1 EACH IV SCH (09:30)
[2019-07-24] MEDS: AZTREONAM 2,000 MG in SODIUM CHLORIDE 0.9% 100 ML IV SCH ×3 (11:33→22:30)
[2019-07-24] MEDS ORDERED: SODIUM CHLORIDE 0.9% 500 ML IV ONE (12:21)
[2019-07-24] MEDS ORDERED: SODIUM CHLORIDE 23.4% CONC INJ 38.5 MEQ, SODIUM BICARB INJ 50 MEQ in STERILE WATER INJ ... IV SCH (13:00)
[2019-07-24] MEDS: SODIUM CHLORIDE 23.4% CONC INJ 38.5 MEQ, SODIUM BICARB INJ 100 MEQ in STERILE WATER INJ... IV SCH (13:22)
[2019-07-24] MEDS: FLUCONAZOLE INJ 100 MG in IV BAG 1 EACH IV SCH (15:18)
[2019-07-24] MEDS: INSULIN GLARGINE 100 UNIT/ML SUBCUT SCH (20:13)
[2019-07-24] MEDS: QUEtiapine 100 MG TABLET PO SCH (20:13)
[2019-07-24] MEDS: ENOXAPARIN 40 MG/0.4 ML SYRINGE SUBCUT SCH (20:13)
[2019-07-24] MEDS ORDERED: MORPHINE 4 MG/1 ML VIAL IV PRN (23:43)
[2019-07-25] MEDS: SODIUM CHLORIDE 23.4% CONC INJ 38.5 MEQ, SODIUM BICARB INJ 100 MEQ in STERILE WATER INJ... IV SCH ×3 (00:22→23:10)
[2019-07-25] MEDS: PHENYTOIN 100 MG/2 ML VIAL IV SCH ×4 (00:30→18:10)
[2019-07-25] MEDS: INSULIN REGULAR 100 UNIT/ML SUBCUT SCH ×4 (00:34→18:16)
[2019-07-25] MEDS: LACOSAMIDE INJ 150 MG in SODIUM CHLORIDE 0.9% 50 ML IV SCH ×2 (04:18→17:37)
[2019-07-25 04:33] LABS: Basophils # 0.1 10*3/uL (0.0-0.2); Basophils % 0.3 % (0.0-0.8); Eosinophils # 0.6 10*3/uL (0.0-0.87); Eosinophils % 3.5 % (0.00-10.9); Hemoglobin 8.8 GM/DL (12.0-16.0); Immature Granulocytes % 1.5 %; Immature Granulocytes Absolute 0.25 #; Lymphocytes # 2.5 10*3/uL (1.4-4.0); Lymphocytes % 14.9 % (21.3-54.2); Mean Corpuscular HGB Conc 31.4 GM/DL (32-36); Mean Corpuscular Volume 93.6 FL (87-102); Mean Platelet Volume 11.7 FL (9.6-12.0); Monocytes % 11.1 % (1.7-12.7); Neutrophils % 68.7 % (38.7-73.9); Platelet Count 397 T/CUMM (130-400); Red Blood Count 2.99 MC/CUMM (3.8-5.5); Red Cell Distribution Width 17.2 % (9.3-17.3); White Blood Count 16.4 T/CUMM (4-12)
[2019-07-25 04:52] LABS: Calcium 7.9 MG/DL (8.5-10.1); Osmolality,Calculated 321.4 MOS/KG (273-304)
[2019-07-25] MEDS: AZTREONAM 2,000 MG in SODIUM CHLORIDE 0.9% 100 ML IV SCH ×4 (05:10→23:17)
[2019-07-25] MEDS: MULTIVITAMIN LIQUID (CENTRUM) 60 ML BOTTLE NG SCH (08:46)
[2019-07-25] MEDS: PANTOPRAZOLE 40 MG VIAL IV SCH ×2 (08:48→20:00)
[2019-07-25] MEDS: SODIUM HYPOCHLORITE 0.25% IRRIG 473 ML BOTTLE TOP SCH (08:49)
[2019-07-25] MEDS: DULoxetine 30 MG CAPSULE PO SCH (08:49)
[2019-07-25] MEDS: POLYETHYLENE GLYCOL POWDER 17 GM PACK PO SCH (08:49)
[2019-07-25] MEDS: ATORVASTATIN 80 MG TABLET PO SCH (08:50)
[2019-07-25] MEDS: MEGESTROL 400 MG/10 ML UDCUP PO SCH ×2 (08:50→20:04)
[2019-07-25] MEDS: FERROUS SULFATE 300 MG/5 ML UDCUP PO SCH ×2 (08:50→20:04)
[2019-07-25] MEDS: POTASSIUM PHOS/SOD PHOS 250 MG TABLET PO SCH ×3 (08:50→20:05)
[2019-07-25] MEDS: amLODIPine 10 MG TABLET PO SCH (08:51)
[2019-07-25] MEDS: ASCORBIC ACID 500 MG TABLET PO SCH (08:51)
[2019-07-25] MEDS: METOPROLOL TARTRATE 50 MG TABLET PO SCH ×2 (08:51→20:05)
[2019-07-25] MEDS ORDERED: SODIUM CHLORIDE 0.9% 100 ML IV ONE ×2 (17:31→22:13)
[2019-07-25] MEDS: ENOXAPARIN 40 MG/0.4 ML SYRINGE SUBCUT SCH (20:04)
[2019-07-25] MEDS: INSULIN GLARGINE 100 UNIT/ML SUBCUT SCH (20:05)
[2019-07-25] MEDS: QUEtiapine 100 MG TABLET PO SCH (20:05)
[2019-07-25] MEDS: ALBUMIN 25% 12.5 GM in PREMIX 1 EACH IV SCH (22:46)
[2019-07-26] MEDS: PHENYTOIN 100 MG/2 ML VIAL IV SCH ×4 (00:04→18:25)
[2019-07-26] MEDS: INSULIN REGULAR 100 UNIT/ML SUBCUT SCH ×4 (00:08→18:25)
[2019-07-26] MEDS: SODIUM CHLORIDE 23.4% CONC INJ 38.5 MEQ, SODIUM BICARB INJ 100 MEQ in STERILE WATER INJ... IV SCH ×3 (01:30→21:07)
[2019-07-26] MEDS: hydrALAZINE 20 MG/1 ML VIAL IV PRN (04:10)
[2019-07-26] MEDS ORDERED: SODIUM CHLORIDE 0.9% 100 ML IV ONE ×2 (04:36→11:30)
[2019-07-26] MEDS: AZTREONAM 2,000 MG in SODIUM CHLORIDE 0.9% 100 ML IV SCH ×2 (04:38→11:24)
[2019-07-26 05:26] LABS: Basophils # 0.1 10*3/uL (0.0-0.2); Basophils % 0.4 % (0.0-0.8); Eosinophils # 0.5 10*3/uL (0.0-0.87); Eosinophils % 3.2 % (0.00-10.9); Hematocrit 28.3 VOL% (35.7-47.0); Hemoglobin 8.6 GM/DL (12.0-16.0); Immature Granulocytes Absolute 0.32 #; Lymphocytes # 2.9 10*3/uL (1.4-4.0); Lymphocytes % 18.3 % (21.3-54.2); Mean Corpuscular HGB Conc 30.4 GM/DL (32-36); Mean Corpuscular Volume 96.3 FL (87-102); Monocytes % 12.6 % (1.7-12.7); Neutrophils % 63.5 % (38.7-73.9); Platelet Count 394 T/CUMM (130-400); Red Blood Count 2.94 MC/CUMM (3.8-5.5); Red Cell Distribution Width 17.2 % (9.3-17.3)
[2019-07-26] MEDS: LACOSAMIDE INJ 150 MG in SODIUM CHLORIDE 0.9% 50 ML IV SCH ×2 (05:28→17:21)
[2019-07-26 06:12] LABS: Osmolality,Calculated 318.7 MOS/KG (273-304)
[2019-07-26] MEDS: ALBUMIN 25% 12.5 GM in PREMIX 1 EACH IV SCH ×3 (06:13→22:27)
[2019-07-26 08:09] LABS: Prealbumin 16.2 MG/DL (20-40)
[2019-07-26] MEDS: MULTIVITAMIN LIQUID (CENTRUM) 60 ML BOTTLE NG SCH (08:44)
[2019-07-26] MEDS: MEGESTROL 400 MG/10 ML UDCUP PO SCH ×2 (08:45→21:38)
[2019-07-26] MEDS: FERROUS SULFATE 300 MG/5 ML UDCUP PO SCH ×2 (08:45→21:38)
[2019-07-26] MEDS: METOPROLOL TARTRATE 50 MG TABLET PO SCH ×2 (08:46→21:39)
[2019-07-26] MEDS: ASCORBIC ACID 500 MG TABLET PO SCH (08:46)
[2019-07-26] MEDS: DULoxetine 30 MG CAPSULE PO SCH (08:46)
[2019-07-26] MEDS: PANTOPRAZOLE 40 MG VIAL IV SCH ×2 (08:46→21:39)
[2019-07-26] MEDS: POLYETHYLENE GLYCOL POWDER 17 GM PACK PO SCH (08:46)
[2019-07-26] MEDS: ATORVASTATIN 80 MG TABLET PO SCH (08:46)
[2019-07-26] MEDS: POTASSIUM PHOS/SOD PHOS 250 MG TABLET PO SCH ×3 (08:46→21:38)
[2019-07-26] MEDS: amLODIPine 10 MG TABLET PO SCH (08:46)
[2019-07-26] MEDS ORDERED: MAGNESIUM SULF RIDER 4 GM in PREMIX 1 EACH IV PRN (09:22)
[2019-07-26] MEDS: MAGNESIUM SULF RIDER 2 GM in PREMIX 1 EACH IV PRN ×2 (09:35→12:11)
[2019-07-26] MEDS: SODIUM HYPOCHLORITE 0.25% IRRIG 473 ML BOTTLE TOP SCH (09:55)
[2019-07-26] MEDS ORDERED: MAGNESIUM SULF RIDER 2 GM in PREMIX 1 EACH IV ONE (13:12)
[2019-07-26] MEDS: CEFEPIME 1,000 MG in SODIUM CHLORIDE 0.9% 100 ML IV SCH ×2 (13:42→21:37)
[2019-07-26 14:24] LABS: ABG Base Excess -4.2 MMOL/L (-2.5-2.5); ABG HCO3 20.9 MMOL/L (20-26); ABG Oxygen Saturation 95.9 % (95-100); ABG PCO2 43.8 MM HG (35-48); ABG PH 7.308 (7.35-7.45); ABG PO2 80.7 MM HG (80-95); ABG TCO2 20.3 MMOL/L (23-27)
[2019-07-26] MEDS ORDERED: FUROSEMIDE 20 MG/2 ML VIAL IV SCH (16:00)
[2019-07-26 19:26] LABS: Amorphous Crystals,Urine Occasional /HPF (Few); Apearance,Urine CLOUDY (Clear); Bacteria,Urine Occasional /HPF (Few); Bilirubin,Urine Negative (Negative); Blood, Urine Negative (Negative); Glucose,Urine (UA) Negative (Negative); Ketones,Urine Negative (Negative); Mucus,Urine Occasional /LPF (Occasional); Nitrite,Urine Negative (Negative); Protein,Urine 100 MG/DL; RBC,Urine 38 /HPF (0-4); Urine Color Amber (Yellow); Urine Specific Gravity 1.017 (1.001-1.035); Urine Urobilinogen < 2.0 EU/DL (0.2-1.0); WBC,Urine 229 /HPF (0-6)
[2019-07-26] MEDS: QUEtiapine 100 MG TABLET PO SCH (21:38)
[2019-07-26] MEDS: ENOXAPARIN 40 MG/0.4 ML SYRINGE SUBCUT SCH (21:39)
[2019-07-26] MEDS: INSULIN GLARGINE 100 UNIT/ML SUBCUT SCH (21:39)
[2019-07-27] MEDS: PHENYTOIN 100 MG/2 ML VIAL IV SCH ×3 (00:51→12:43)
[2019-07-27] MEDS: INSULIN REGULAR 100 UNIT/ML SUBCUT SCH ×3 (00:52→12:39)
[2019-07-27] MEDS: CEFEPIME 1,000 MG in SODIUM CHLORIDE 0.9% 100 ML IV SCH ×2 (05:28→12:48)
[2019-07-27] MEDS: LACOSAMIDE INJ 150 MG in SODIUM CHLORIDE 0.9% 50 ML IV SCH (05:28)
[2019-07-27] MEDS: SODIUM CHLORIDE 23.4% CONC INJ 38.5 MEQ, SODIUM BICARB INJ 100 MEQ in STERILE WATER INJ... IV SCH (05:29)
[2019-07-27 05:31] LABS: Basophils # 0.1 10*3/uL (0.0-0.2); Basophils % 0.3 % (0.0-0.8); Eosinophils # 0.2 10*3/uL (0.0-0.87); Eosinophils % 1.3 % (0.00-10.9); Hematocrit 27.1 VOL% (35.7-47.0); Hemoglobin 8.1 GM/DL (12.0-16.0); Immature Granulocytes % 3.6 %; Immature Granulocytes Absolute 0.51 #; Mean Corpuscular HGB Conc 29.9 GM/DL (32-36); Mean Corpuscular Volume 97.5 FL (87-102); Mean Platelet Volume 11.9 FL (9.6-12.0); Monocytes % 11.2 % (1.7-12.7); Neutrophils % 69.6 % (38.7-73.9); Platelet Count 381 T/CUMM (130-400); Red Blood Count 2.78 MC/CUMM (3.8-5.5); Red Cell Distribution Width 17.2 % (9.3-17.3); White Blood Count 14.3 T/CUMM (4-12)
[2019-07-27 05:59] LABS: Lymphocytes 16 % (20-55); Segmented Neutrophils 73 % (50-85); Total Cells Counted 100
[2019-07-27 06:00] LABS: Ovalocytes Slight; Platelet Estimate Adequate
[2019-07-27 06:03] LABS: Calcium 8.1 MG/DL (8.5-10.1); Osmolality,Calculated 321.6 MOS/KG (273-304)
[2019-07-27] MEDS: ALBUMIN 25% 12.5 GM in PREMIX 1 EACH IV SCH (06:23)
[2019-07-27 07:43] VITALS: BP 162/63
[2019-07-27] MEDS: MEGESTROL 400 MG/10 ML UDCUP PO SCH (08:26)
[2019-07-27] MEDS: ATORVASTATIN 80 MG TABLET PO SCH (08:26)
[2019-07-27] MEDS: amLODIPine 10 MG TABLET PO SCH (08:26)
[2019-07-27] MEDS: DULoxetine 30 MG CAPSULE PO SCH (08:26)
[2019-07-27] MEDS: ASCORBIC ACID 500 MG TABLET PO SCH (08:26)
[2019-07-27] MEDS: FERROUS SULFATE 300 MG/5 ML UDCUP PO SCH (08:26)
[2019-07-27] MEDS: METOPROLOL TARTRATE 50 MG TABLET PO SCH (08:26)
[2019-07-27] MEDS: POLYETHYLENE GLYCOL POWDER 17 GM PACK PO SCH (08:26)
[2019-07-27] MEDS: POTASSIUM PHOS/SOD PHOS 250 MG TABLET PO SCH (08:26)
[2019-07-27] MEDS: PANTOPRAZOLE 40 MG VIAL IV SCH (08:27)
[2019-07-27] MEDS: MULTIVITAMIN LIQUID (CENTRUM) 60 ML BOTTLE NG SCH (08:33)
[2019-07-27] MEDS: SODIUM HYPOCHLORITE 0.25% IRRIG 473 ML BOTTLE TOP SCH (09:30)
[2019-07-27] MEDS ORDERED: FUROSEMIDE 20 MG/2 ML VIAL IV SCH (12:30)
[2019-07-27] MEDS ORDERED: FLUCONAZOLE INJ 200 MG in PREMIX 1 EACH IV SCH (13:30)
[2019-07-27] MEDS ORDERED: CLINDAMYCIN INJ 600 MG in PREMIX 1 EACH IV SCH (13:30)
[2019-07-27] MEDS ORDERED: ENOXAPARIN 100 MG/ML SYRINGE SUBCUT ONE (13:46)
[2019-07-27] MEDS ORDERED: SODIUM POLYSTYRENE SULFATE 15 GM/60 ML BOTTLE RECTAL ONE (13:54)
== END 2019-07-27 14:44 | disposition expired | DRG 56 ==
LOC: N.ED 06:55 → N.EDINP 06:55 → SUATTDRO 09:50 → N.5E 10:10 → N.CC 15:31 → SUATTDRO 07-18 07:24
PROVIDERS: ADMIT Family Medicine; ATTEND Internal Medicine